=== PATIENT | female | born 1940 | race Caucasian/White ===

== ENCOUNTER 2016-12-29 20:08 | Inpatient (IN) | payer MEDICARE, OTHER, MEDICAID ==
[2016-12-29] MEDS ORDERED: IPRATROPIUM/ALBUTEROL 0.5-2.5 MG/3 ML AMPUL NEB ONE ×2 (20:55→23:16)
[2016-12-29] MEDS ORDERED: PREDNISONE 20 MG TABLET PO ONE (20:55)
--- NOTE | 2016-12-29 20:55 | ER Document Report ---
ED Medical Screen (RME) - General Stated Complaint: DIFFICULTY BREATHING Mode of Arrival: Wheelchair Information source: Patient Notes: Patient complains of shortness of breath that started today. Patient states that her home health nurse stated that her oxygen saturation was in the 80s today. Patient states she does have home oxygen and only wears it at night. Patient denies any chest discomfort. hx: COPD I have greeted and performed a rapid initial assessment of this patient. A comprehensive ED assessment and evaluation of the patient, analysis of test results and completion of the medical decision making process will be conducted by additional ED providers. TRAVEL OUTSIDE OF THE [place] IN LAST 30 DAYS: No - Related Data Allergies/Adverse Reactions: clarithromycin [Clarithromycin] Allergy (Unknown, Verified 12/29/16 20:57) unsure of reaction codeine [Codeine] Allergy (Verified 12/29/16 20:57) hydrocodone Allergy (Verified 12/29/16 20:57) levofloxacin Allergy (Verified 12/29/16 20:57) Sulfa (Sulfonamide Antibiotics) Allergy (Verified 12/29/16 20:57) tramadol Allergy (Verified 12/29/16 20:57) Past Medical History - Past Medical History Cardiac Medical History: Reports: Hx Hypercholesterolemia, Hx Hypertension Denies: Hx Coronary Artery Disease, Hx Heart Attack Pulmonary Medical History: Reports: Hx Bronchitis, Hx COPD, Hx Pneumonia Denies: Hx Asthma, Hx Tuberculosis Neurological Medical History: Denies: Hx Cerebrovascular Accident, Hx Seizures Malignancy Medical History: Reports: Hx Lung Cancer GI Medical History: Reports: Hx Gastroesophageal Reflux Disease, Hx Hiatal Hernia, Hx Ulcer. Denies: Hx Irritable Bowel, Hx Liver Failure Musculoskeltal Medical History: Reports Hx Arthritis, Denies Hx Multiple Sclerosis Skin Medical History: Denies Hx MRSA Psychiatric Medical History: Reports: Hx Depression Denies: Hx Dementia Past Surgical History: Reports: Hx Cholecystectomy, Hx Orthopedic Surgery - RLE. Denies: Hx Colostomy, Hx Hysterectomy, Hx Pacemaker, Hx Tonsillectomy - Immunizations Hx Diphtheria, Pertussis, Tetanus Vaccination: Yes Physical Exam - Vital signs Vitals: Temp Pulse Resp BP Pulse Ox 100.1 F 145 H 26 H 126/72 H 100 12/29/16 20:40 12/29/16 20:40 12/29/16 20:40 12/29/16 20:40 12/29/16 20:40 - Respiratory Respiratory status: Labored - slightly Breath sounds: Nonproductive cough, Wheezing Course - Vital Signs Vital signs: Temp Pulse Resp BP Pulse Ox 97.8 F 75 22 H 132/93 H 92 12/29/16 20:52 12/29/16 20:52 12/29/16 20:52 12/29/16 20:52 12/29/16 20:52
[2016-12-29] MEDS ORDERED: ALBUTEROL SULFATE 0.083% NEB 2.5 MG/3 ML AMPUL NEB ONE (20:57)
[2016-12-29 22:32] LABS: ABSOLUTE BASOPHILS # (AUTO) 0.2 10^3/uL (0.0-0.2); ABSOLUTE EOSINOPHILS # (AUTO) 0.2 10^3/uL (0.0-0.6); ABSOLUTE LYMPHOCYTES (AUTO) 1.3 10^3/uL (0.5-4.7); ABSOLUTE MONOCYTES (AUTO) 0.8 10^3/uL (0.1-1.4); ABSOLUTE NEUT (AUTO) 10.9 10^3/uL (1.7-8.2); BASOPHILS % (AUTO) 1.2 % (0-2); EOSINOPHILS % (AUTO) 1.5 % (0-6); HEMATOCRIT 36.1 % (36.0-47.0); HGB HCT DIFFERENCE -3.1; LYMPHOCYTES % (AUTO) 9.5 % (13-45); MEAN CORPUSCULAR HEMOGLOBIN 24.9 pg (27.0-33.4); MEAN CORPUSCULAR HGB CONC 30.5 g/dL (32.0-36.0); MEAN CORPUSCULAR VOLUME 82 fl (80-97); MONOCYTES % (AUTO) 6.2 % (3-13); RED BLOOD COUNT 4.43 10^6/uL (3.72-5.28); RED CELL DISTRIBUTION WIDTH 20.2 % (11.5-14.0); SEGMENTED NEUTROPHILS % (AUTO) 81.6 % (42-78); WHITE BLOOD COUNT 13.4 10^3/uL (4.0-10.5)
[2016-12-29 22:50] LABS: ALANINE AMINOTRANSFERASE 19 U/L (9-52); ALBUMIN 4.3 g/dL (3.5-5.0); ALKALINE PHOSPHATASE 125 U/L (38-126); ANION GAP 13 (5-19); ASPARTATE AMINO TRANSFERASE 19 U/L (14-36); BILIRUBIN,TOTAL 0.7 mg/dL (0.2-1.3); BLOOD UREA NITROGEN 11 mg/dL (7-20); CALCIUM 9.4 mg/dL (8.4-10.2); CARBON DIOXIDE 25 mmol/L (22-30); CHLORIDE 105 mmol/L (98-107); CREATINE KINASE 38 U/L (30-135); CREATININE RESULT 0.94 mg/dL (0.52-1.25); GLUCOSE 105 mg/dL (75-110); POTASSIUM 3.5 mmol/L (3.6-5.0); SODIUM 142.9 mmol/L (137-145); TOTAL PROTEIN 7.8 g/dL (6.3-8.2)
[2016-12-29 23:02] LABS: CREATINE KINASE MB 1.03 ng/mL (<4.55)
[2016-12-29 23:07] LABS: TROPONIN I < 0.012 ng/mL
[2016-12-29] MEDS ORDERED: FUROSEMIDE INJ/PF 20 MG/2 ML SDV IV ONE (23:16)
--- NOTE | 2016-12-29 23:19 | ER Document Report ---
ED General - General Chief Complaint: Shortness Of Breath Stated Complaint: DIFFICULTY BREATHING Mode of Arrival: Wheelchair Notes: Patient is a 76-year-old female presents with complaint of difficulty breathing. She's a history of COPD. She continues to smoke. She wears 2 L of oxygen at home occasionally. Breathing got worse today. No fevers. No vomiting. No diarrhea. The only pain she has no chest is in her right breast it hurts when she coughs. Some nausea. No vomiting. No other complaints at this time. TRAVEL OUTSIDE OF THE [place] IN LAST 30 DAYS: No - Related Data Allergies/Adverse Reactions: clarithromycin [Clarithromycin] Allergy (Unknown, Verified 12/29/16 20:57) unsure of reaction codeine [Codeine] Allergy (Verified 12/29/16 20:57) hydrocodone Allergy (Verified 12/29/16 20:57) levofloxacin Allergy (Verified 12/29/16 20:57) Sulfa (Sulfonamide Antibiotics) Allergy (Verified 12/29/16 20:57) tramadol Allergy (Verified 12/29/16 20:57) Past Medical History - General Information source: Patient - Social History Smoking Status: Current Every Day Smoker Frequency of alcohol use: None Drug Abuse: None Family History: Reviewed & Not Pertinent, COPD - Past Medical History Cardiac Medical History: Reports: Hx Hypercholesterolemia, Hx Hypertension Denies: Hx Coronary Artery Disease, Hx Heart Attack Pulmonary Medical History: Reports: Hx Bronchitis, Hx COPD, Hx Pneumonia Denies: Hx Asthma, Hx Tuberculosis Neurological Medical History: Denies: Hx Cerebrovascular Accident, Hx Seizures Renal/ Medical History: Denies: Hx Peritoneal Dialysis Malignancy Medical History: Reports: Hx Lung Cancer GI Medical History: Reports: Hx Gastroesophageal Reflux Disease, Hx Hiatal Hernia, Hx Ulcer. Denies: Hx Irritable Bowel, Hx Liver Failure Musculoskeltal Medical History: Reports Hx Arthritis, Denies Hx Multiple Sclerosis Skin Medical History: Denies Hx MRSA Psychiatric Medical History: Reports: Hx Depression Denies: Hx Dementia Past Surgical History: Reports: Hx Cholecystectomy, Hx Orthopedic Surgery - RLE. Denies: Hx Colostomy, Hx Hysterectomy, Hx Pacemaker, Hx Tonsillectomy - Immunizations Hx Diphtheria, Pertussis, Tetanus Vaccination: Yes Hx Pneumococcal Vaccination: 11/05/10 Review of Systems - Review of Systems Notes: My Normal Review Basic REVIEW OF SYSTEMS: CONSTITUTIONAL : Denies fever, chills, or sweats. Denies recent illness. EENT: Denies eye, ear, throat, or mouth pain or symptoms. Denies nasal or sinus congestion. CARDIOVASCULAR: Denies chest pain. RESPIRATORY: Current cough. Difficulty breathing. Wheezing. GASTROINTESTINAL: Denies abdominal pain. Denies nausea, vomiting, or diarrhea. Denies constipation. Last BM: GENITOURINARY: Denies difficulty urinating, painful urination, burning, frequency, or blood in urine.ds. LMP: MUSCULOSKELETAL: Denies neck or back pain or joint pain or swelling. SKIN: Denies rash or skin lesions. NEUROLOGICAL: Denies altered mental status or loss of consciousness. Denies headache. Denies weakness or paralysis or loss of use of either side. Denies problems with gait or speech. Denies sensory or motor loss. ALL OTHER SYSTEMS REVIEWED AND NEGATIVE. Physical Exam - Vital signs Vitals: Temp Pulse Resp BP Pulse Ox 97.8 F 75 22 H 132/93 H 92 12/29/16 20:40 12/29/16 20:40 12/29/16 20:40 12/29/16 20:40 12/29/16 20:40 - Notes Notes: General Appearance: Well nourished, alert, cooperative, mild to moderate acute distress, no obvious discomfort. Vitals: reviewed, See vital signs table. Head: no swelling or tenderness to the head Eyes: PERRL, EOMI, Conjuctiva clear Mouth: No decreasd moisture Throat: No tonsillar inflammation, No airway obstruction, No lymphadenopathy Neck: Supple, no neck tenderness, No thyromegaly Lungs: Scattered wheezing. Some tachypnea. Some rales. Few rhonchi. Heart: Normal rate, Regular rythm, No murmur, no rub Abdomen: Normal BS, soft, No rigidity, No abdominal tenderness, No guarding, no rebound, no abdominal masses, no organomegaly Extremities: strength 5/5 in all extremities, good pulses in all extremities, no swelling or tenderness in the extremities, no edema. Skin: warm, dry, appropriate color, no rash Neuro: speech clear, oriented x 3, normal affect, responds appropriately to questions. Course - Vital Signs Vital signs: Temp Pulse Resp BP Pulse Ox 97.8 F 75 21 H 115/57 L 98 12/29/16 20:52 12/29/16 20:52 12/30/16 05:30 12/30/16 05:30 12/30/16 05:30 - Laboratory Result Diagrams: 12/29/16 21:12 12/29/16 21:12 Laboratory results interpreted by me: 12/29/16 12/29/16 21:12 21:12 WBC 13.4 H Hgb 11.0 L MCH 24.9 L MCHC 30.5 L RDW 20.2 H Seg Neutrophils % 81.6 H Lymphocytes % 9.5 L Absolute Neutrophils 10.9 H Potassium 3.5 L Est GFR (Non-Af Amer) 58 L - EKG Interpretation by Me Additional EKG results interpreted by me: 12/30/16 00:50 EKG is reviewed and interpreted by me. EKG shows sinus tachycardia with a rate of [address] segment elevation or depression. Patient does have a lot of baseline artifact in the lateral precordial leads making it difficult to read. WI interval, QRS duration, QTC intervals are within normal range. Old EKG for comparison is from 04/18/2016. - Transfer of Care Notes: 12/30/16 05:13 I did attempt to call Dr. Arias around 1:40 AM. He informed me that he most likely will not be able to get the patient seems very busy. I have just reevaluated the patient. She continues to be resting comfortably and doing well with the BiPAP. We will continue to wait to get a response from hospitalist about admission. Dictation of this chart was performed using voice recognition software; therefore, there may be some unintended grammatical errors. Discharge - Discharge Clinical Impression: COPD exacerbation, Acute and chronic respiratory failure with hypoxia Condition: Stable Disposition: ADMITTED INPATIENT Unit Admitted: [facility]
[2016-12-29] MEDS ORDERED: MAGNESIUM SULFATE/D5W 100 ML IV SCH (23:30)
[2016-12-30] MEDS ORDERED: ONDANSETRON HCL INJ/PF 4 MG/2 ML SDV IV ONE (00:44)
[2016-12-30] MEDS ORDERED: KETOROLAC TROMETHAMINE INJ/PF 30 MG/1 ML SDV IV ONE (00:44)
[2016-12-30 01:33] LABS: VENOUS BLOOD BASE EXCESS 1.5 mmol/L; VENOUS BLOOD HCO3 26.6 mmol/L (20-32); VENOUS BLOOD PCO2 43.8 mmHg (35-63); VENOUS BLOOD PH 7.4 (7.30-7.42)
[2016-12-30 05:19] LABS: APPEARANCE,URINE SLIGHTLY-CLOUDY; BILIRUBIN,URINE NEGATIVE (NEGATIVE); GLUCOSE, URINE NEGATIVE (NEGATIVE); KETONES,URINE NEGATIVE (NEGATIVE); LEUKOCYTE ESTERASE,URINE NEGATIVE (NEGATIVE); NITRITE,URINE NEGATIVE (NEGATIVE); PROTEIN,URINE NEGATIVE (NEGATIVE); URINE SPECIFIC GRAVITY 1.006; UROBILINOGEN,URINE NEGATIVE mg/dL (<2.0)
[2016-12-30] MEDS ORDERED: GLUCAGON,HUMAN RECOMB 1 MG INJ IM PRN (08:31)
[2016-12-30] MEDS ORDERED: DEXTROSE 40% GEL 15 GM TUBE PO PRN ×2 (08:31)
[2016-12-30] MEDS ORDERED: DEXTROSE 50%-WATER 25 GM/50 ML DISP.SYRIN IV PRN ×2 (08:31)
[2016-12-30] MEDS ORDERED: INSULIN LISPRO 100 UNIT/ML 3 ML VIAL SUBCUT PRN (08:31)
[2016-12-30] MEDS ORDERED: ALBUTEROL SULFATE 0.083% NEB 2.5 MG/3 ML AMPUL NEB PRN (08:35)
[2016-12-30] MEDS ORDERED: ACETAMINOPHEN 325 MG TABLET PO PRN (08:35)
[2016-12-30] MEDS ORDERED: GUAIFENESIN SYRP 200 MG/10 ML UDC PO PRN (08:35)
[2016-12-30] MEDS ORDERED: POTASSI CL 20 MEQ/NS 1L 1,000 ML IV PRN (08:41)
[2016-12-30 09:28] LABS: HEMATOCRIT 33.1 % (36.0-47.0); HEMOGLOBIN 10.1 g/dL (12.0-15.5); HGB HCT DIFFERENCE -2.8; MEAN CORPUSCULAR HEMOGLOBIN 24.9 pg (27.0-33.4); MEAN CORPUSCULAR HGB CONC 30.6 g/dL (32.0-36.0); MEAN CORPUSCULAR VOLUME 81 fl (80-97); RED BLOOD COUNT 4.08 10^6/uL (3.72-5.28); RED CELL DISTRIBUTION WIDTH 19.7 % (11.5-14.0); WHITE BLOOD COUNT 20.9 10^3/uL (4.0-10.5)
[2016-12-30 09:34] LABS: ANION GAP 13 (5-19); BLOOD UREA NITROGEN 10 mg/dL (7-20); CALCIUM 8.7 mg/dL (8.4-10.2); CARBON DIOXIDE 25 mmol/L (22-30); CHLORIDE 102 mmol/L (98-107); CREATININE RESULT 0.71 mg/dL (0.52-1.25); GLUCOSE 150 mg/dL (75-110); POTASSIUM 3.6 mmol/L (3.6-5.0)
[2016-12-30 09:46] LABS: BAND NEUTROPHILS % (MANUAL) 1 % (3-5); BASOPHILS % (MANUAL) 0 % (0-2); EOSINOPHILS % (MANUAL) 0 % (0-6); LYMPHOCYTES % (MANUAL) 1 % (13-45); TOTAL CELLS COUNTED 100
[2016-12-30 09:48] LABS: ANISOCYTOSIS 1+; HYPOCHROMASIA 1+
[2016-12-30] MEDS ORDERED: POTASSIUM CHLORIDE 20 MEQ/15 ML UDCUP PO ONE (10:00)
[2016-12-30] MEDS ORDERED: CEFEPIME 2 GM/D5W RTU 50 ML IV SCH (10:00)
[2016-12-30] MEDS ORDERED: LANSOPRAZOLE 30 MG TAB.RAP.DR PO ONE ×2 (10:00→16:00)
[2016-12-30] MEDS ORDERED: ENOXAPARIN SODIUM INJ 40 MG/0.4 ML DISP.SYRIN SUBCUT ONE (10:00)
[2016-12-30] MEDS: CEFEPIME HCL 2 GM in DEXTROSE 5%-WATER 50 ML IV SCH ×2 (10:03→21:34)
[2016-12-30] MEDS: PREDNISONE 20 MG TABLET PO SCH (10:03)
[2016-12-30] MEDS: DOCUSATE SODIUM 100 MG CAPSULE PO SCH ×2 (10:04→17:19)
[2016-12-30] MEDS ORDERED: NICOTINE 7 MG/24 HR PATCH.TD24 TD PRN ×2 (10:11→15:04)
--- NOTE | 2016-12-30 10:15 | PDOC H&P ---
History of Present Illness Admission Date/PCP: 12/30/16 07:[address] Gus DAMON Patient complains of: Difficulty breathing History of Present Illness: NENITA ELIAS is a 76-year-old female, with underlying when necessary home O2 dependent COPD, one third pack of cigarettes per day, history of lung cancer, history of MRSA infection of lungs, history of pulmonary embolism, who presents to the emergency room for evaluation of above complaint. Vague historian; much information obtained from emergency room physician's notes. Approximately 24-hour history of worsening of her chronic shortness of breath. When necessary 2 L oxygen per nasal cannula at home. Some nausea, but no vomiting. No fever or chills. No diarrhea. Mild right breast discomfort with the cough. Was in fairly significant respiratory distress upon arrival, but has improved nicely, according to the emergency room physician, since application of BiPAP. Was hospitalized on our service October 26 through the of last year, with discharge diagnoses including left lower lobe pneumonia, urinary tract infection , COPD exacerbation, and acute and chronic respiratory failure with hypoxia. Discharge summary has been reviewed. Patient has been discussed with emergency room physician who evaluated the patient. . Laboratory results are listed in [facility] and are reviewed. X-ray summary results are listed below, with full report(s) reviewed. . EKG reviewed. And compared to tracing from April 18 of last year. Social history/personal habits: . Lives alone. Son lives next door. Retired. 2 children. One third pack of cigarettes per day. No alcohol or illicit drug use. Allergies/adverse reactions are listed in [facility] and are reviewed. Home medications have been reconciled by nursing staff in [facility]. Home medications initially autopopulated into [employer] may not accurately reflect patient's true medications, dosages, and/or frequencies. Unfortunately, patient uncertain of medications/dosages/frequencies. REVIEW OF SYSTEMS: Constitutional: No fever or chills. Eyes: Wears glasses. ENT: No swallowing problems or complaints. No hearing problems or complaints. Pulmonary: No current complaints. Cardiovascular: No current complaints, including chest pain. Gastrointestinal: See history and present illness. Skin: Psoriasis. Hematologic: Easy bruising. Neurologic: No current complaints, including numbness or tingling. Psychiatric: Mild Anxiety depression; denies suicidal or homicidal ideation. Endocrine: No current complaints, including polyuria. Genitourinary: No current complaints, including dysuria. PHYSICAL EXAMINATION: 5 feet 7 inches tall. 74.4 kg. BMI 25.7 kg/m. Temperature 97.8. Blood pressure 107/56. Pulse 87 and regular. 98% saturation on BiPAP 40%, 12/6. Respirations are 17 and unlabored. Slightly overweight otherwise well-nourished well-developed though chronically ill-appearing female who appears a number of years older than her stated age. Awake alert and cooperative, though somewhat fatigued appearance. Appears to feel a bit under the weather, so to speak, also. Skin is warm and dry. No grossly obvious evidence of rash in areas of skin examined. No subcutaneous nodules palpated. ENT: Mildly hard of hearing to normal conversation. Tongue midline on protrusion pink and slightly tacky. Eyes: No scleral icterus. Pupils equal and reactive to light at 4 mm. [place] conjunctivae. Neck is supple and nontender to gentle active range of motion and palpation. Midline trachea. No palpable thyroid nodule mass enlargement or tenderness. Lymphatic: No palpable cervical or clavicular nodes. Neck and lymphatic exams limited by patient body habitus. Psychiatric: Fair insight into acute and chronic medical issues. Oriented to time location and why here. Lungs: Auscultation reveals clear and equal breath sounds bilaterally. No use of accessory respiratory muscles. Cardiovascular: Heart regular rate and rhythm, without gallop murmur or rub. No carotid or abdominal aortic bruits. No ankle or pedal edema. Faintly palpable dorsalis pedis pulses. Abdomen: soft, , slightly distended nontender with positive bowel sounds. Unable to adequately evaluate abdomen for masses or organomegaly due to distention. Extremities: Feet are warm and dry. No calf tenderness to compression. No grossly obvious visual evidence of calf swelling. Gentle manipulation of lower extremities fails to reveal any obvious evidence of injury or instability to knees hips or ankles. Neurologic: Moves upper extremities grossly normally. Patellar reflexes absent. Absent Babinski. Light touch is intact at feet. Dorsiflexion and plantarflexion of feet 5 / 5 and symmetric. Past Medical History Cardiac Medical History: Reports: Congestive Heart Failure - Reported history of congestive heart failure., Hyperlipidema, Hypertension, Pulmonary Embolism - Reported distant history of pulmonary embolus. Denies: Coronary Artery Disease, Myocardial Infarction Pulmonary Medical History: Reports: Bronchitis, Chronic Obstructive Pulmonary Disease (COPD), Pneumonia Denies: Asthma, Tuberculosis EENT Medical History: Reports: Eyes - Glasses, Ears - Partial hearing loss Denies: Throat Neurological Medical History: Denies: Hemorrhagic CVA, Ischemic CVA, Seizures Endocrine Medical History: Denies: Diabetes Mellitus Type 1, Diabetes Mellitus Type 2, Hyperthyroidism, Hypothyroidism Malignancy Medical History: Reports: Lung Cancer GI Medical History: Reports: Gastroesophageal Reflux Disease, Hiatal Hernia Denies: Cirrhosis, Hepatitis Musculoskeltal Medical History: Reports: Arthritis Skin Medical History: Reports: Psoriasis Psychiatric Medical History: Reports: Depression, General Anxiety Disorder, Tobacco Dependency Denies: Alcohol Dependency, Dementia, Substance Abuse Hematology: Reports: Other - Easy bruising Denies: Anemia Infectious Medical History: Reports: Methicillin-Resistant Staph Aureus Denies: Hepatitis B, Hepatitis C Past Surgical History Past Surgical History: Reports: Cholecystectomy, Orthopedic Surgery - RLE Denies: Colostomy, Hysterectomy, Pacemaker, Tonsillectomy Social History Information Source: Patient, Emergency Med Personnel, [facility] Lives with: Alone Smoking Status: Current Every Day Smoker Frequency of Alcohol Use: None Hx Recreational Drug Use: No Drugs: None Hx Prescription Drug Abuse: No - Advance Directive Resuscitation Status: Do Not Resuscitate - Implications of DO NOT RESUSCITATE/ DO NOT INTUBATE status discussed with patient. Discussed in layperson's terms. Implications understood. Patient is the health care decision maker. Patient conversation is lucid and appropriate. Patient desires DO NOT RESUSCITATE/DO NOT INTUBATE status, as was the case during her recent hospital stay in late October of last year. Will honor patient wishes. Surrogate healthcare decision maker:: Son Family History Family History: Reviewed & Not Pertinent, COPD Parental Family History Reviewed: Yes Children Family History Reviewed: Yes Sibling(s) Family History Reviewed.: Yes Medication/Allergy Home Medications: Amlodipine Besylate [Norvasc 5 mg Tablet] 5 mg PO DAILY 09/28/15 Lisinopril 20 mg PO BID 09/28/15 Metoprolol Tartrate 25 mg PO BID 09/28/15 Omeprazole 40 mg PO DAILY 04/19/16 Acidophilus/Bifido Longum [Lactobacillus Capsule] 1 cap PO BID #20 capsule 04/21 Albuterol Sulfate [Ventolin 0.083% Neb 2.5 mg/3 mL Ampul] 2.5 mg NEB Q4H PRN 09/ 18/16 Citalopram Hydrobromide [Celexa 20 mg Tablet] 10 mg PO DAILY #30 tablet Docusate Sodium [Colace 100 mg Capsule] 100 mg PO BID #20 capsule 07/24/16 Nicotine [Nicoderm 7 mg/24 Hr Transdermal Patch] 1 each TD DAILYP PRN #30 patch.td24 07/24/16 Amox Tr/Potassium Clavulanate [Augmentin "500" Tablet] 1 tab PO Q8 tablet Butalb/Acetaminophen/Caffeine [Fioricet (50-325-40 mg) Tablet] 1 tab PO Q4HP PRN #30 each 11/01/16 Clonazepam [Klonopin 1 mg Tablet] 0.5 mg PO Q12HP PRN #30 tablet 11/01/16 Fluticasone/Salmeterol [Advair 250-50 Diskus 14 Dose/Diskus] 1 inh IH Q12A inhaler 11/01/16 Guaifenesin [Mucinex Sr 600 mg Tablet.sa] 1,200 mg PO Q12 tablet.sa 11/01/16 Ipratropium/Albuterol Sulfate [Duoneb 3 ml Ampul] 3 ml NEB RTQ6 vial.neb Prednisone [Sterapred Ds] 1 pkg PO ASDIR PRN 12 Days 11/01/16 Allergies/Adverse Reactions: clarithromycin [Clarithromycin] Allergy (Unknown, Verified 12/29/16 20:57) unsure of reaction codeine [Codeine] Allergy (Verified 12/29/16 20:57) hydrocodone Allergy (Verified 12/29/16 20:57) levofloxacin Allergy (Verified 12/29/16 20:57) Sulfa (Sulfonamide Antibiotics) Allergy (Verified 12/29/16 20:57) tramadol Allergy (Verified 12/29/16 20:57) Physical Exam Vital Signs: Temp Pulse Resp BP Pulse Ox 98.5 F 75 20 117/66 99 12/30/16 08:16 12/29/16 20:52 12/30/16 08:01 12/30/16 08:00 12/30/16 08:01 Results Impressions: Chest X-Ray 12/29/16 20:56 IMPRESSION: NO ACUTE CARDIOPULMONARY PROCESS. NO SIGNIFICANT CHANGE FROM PRIOR STUDY. Assessment & Plan - Diagnosis (1) Acute and chronic respiratory failure Qualifiers: Respiratory failure complication: unspecified whether with hypoxia or hypercapnia Qualified Code(s): J96.20 - Acute and chronic respiratory failure, unspecified whether with hypoxia or hypercapnia Is this a current diagnosis for this admission?: YesPlan: Patient will be admitted under COPD exacerbation protocol. Incentive spirometry twice a day. Scheduled DuoNeb's. PRN albuterol nebs daily prednisone. Prevacid for gastritis prophylaxis. Antibiotics will consist of cefepime. I strongly encouraged patient to notify staff should patient feel that respiratory status is worsening. Patient is a full code. I have strongly encouraged patient not to get out of bed without notifying staff , , to avoid a fall with injury. Knee high SCDs for DVT prophylaxis, along with subcutaneous Lovenox Impression and plans were discussed with patient, who concurs. Time spent in evaluation and management of patient: 59 minutes. (2) COPD exacerbation Is this a current diagnosis for this admission?: Yes (3) Hypokalemia Is this a current diagnosis for this admission?: YesPlan: Potassium supplement. Follow-up chemistry. (4) Abnormal urinalysis Is this a current diagnosis for this admission?: YesPlan: Urine culture. (5) Anemia of chronic disease Is this a current diagnosis for this admission?: YesPlan: Follow-up CBC with differential. No need for transfusion at present time. (6) History of MRSA infection of lungs Is this a current diagnosis for this admission?: YesPlan: Contact precautions. (7) Tobacco dependency Is this a current diagnosis for this admission?: YesPlan: When necessary nicotine patch. - Inpatient Certification Medical Necessity: Significant Comorbidiites Make Outpatient Treatment Too Risky , Need Close Monitoring Due to Risk of Patient Decompensation, Need For IV Fluids, Need For Continuous Telemetry Monitoring, Need for Nebulizer Therapy and Monitoring of Response, Need for IV Antibiotics, Risk of Complication if Not Cared For in Hospital, Risk of Diagnosis Which Will Require Inpatient Eval/ Care/Monitoring Post Hospital Care: D/C or Transfer Summary
[2016-12-30] MEDS ORDERED: IPRATROPIUM/ALBUTEROL 0.5-2.5 MG/3 ML AMPUL NEB SCH (14:00)
[2016-12-30] MEDS ORDERED: FLUTICASONE NASAL SPRAY 50 MCG/SPRY 120 SPRAY/16 GM NASL ONE (15:03)
[2016-12-30] MEDS ORDERED: BENZONATATE 100 MG CAPSULE PO PRN (15:03)
[2016-12-30] MEDS ORDERED: GUAIFENESIN 600 MG TABLET.SA PO ONE (15:03)
[2016-12-30] MEDS ORDERED: LEVALBUTEROL HCL NEB 0.63 MG/3 ML AMPUL NEB PRN (15:06)
--- NOTE | 2016-12-30 15:19 | PDOC PROGRESS REPORT ---
Subjective Progress Note for:: 12/30/16 Subjective:: The patient was seen earlier today on rounds. The patient states that she is still having some dyspnea however not while at rest. The patient does admit to some shortness of breath when she has to chew. Patient denies any pain The patient denies any nausea, vomiting, diarrhea, dizziness, chest pain, heart palpitations, fevers, or chills. The patient has remained afebrile. Blood pressures have been in a good range. When prompted the patient voices no other concerns at this time. Review of systems: The rest of the review of systems is negative. Physical Exam Vital Signs: Temp Pulse Resp BP Pulse Ox 98.6 F 102 H 20 123/68 90 L 12/30/16 13:04 12/30/16 14:15 12/30/16 14:15 12/30/16 13:04 12/30/16 14:15 Intake & Output 12/28/16 12/29/16 12/30/16 23:59 23:59 23:59 Weight 76.4 kg General appearance: PRESENT: no acute distress, cooperative, well-developed, well-nourished Exam: Frail chronically ill-appearing Head exam: PRESENT: atraumatic, normocephalic Eye exam: PRESENT: conjunctiva pink, EOMI, PERRLA. ABSENT: scleral icterus Ear exam: PRESENT: normal external ear exam Mouth exam: PRESENT: moist, tongue midline Neck exam: ABSENT: carotid bruit, JVD, lymphadenopathy, thyromegaly Respiratory exam: PRESENT: decreased breath sounds, prolonged expiratory phas, symmetrical, tachypnea, wheezes. ABSENT: rales, rhonchi, unlabored Cardiovascular exam: PRESENT: RRR. ABSENT: diastolic murmur, rubs, systolic murmur Pulses: PRESENT: normal dorsalis pedis pul Vascular exam: PRESENT: normal capillary refill GI/Abdominal exam: PRESENT: normal bowel sounds, soft. ABSENT: distended, guarding, mass, organolmegaly, rebound, tenderness Rectal exam: PRESENT: deferred Extremities exam: PRESENT: full ROM. ABSENT: calf tenderness, clubbing, pedal edema Neurological exam: PRESENT: alert, awake, oriented to person, oriented to place , oriented to time, oriented to situation, CN II-XII grossly intact. ABSENT: motor sensory deficit Psychiatric exam: PRESENT: appropriate affect, normal mood. ABSENT: homicidal ideation, suicidal ideation Skin exam: PRESENT: dry, intact, warm. ABSENT: cyanosis, rash Results Laboratory Results: 12/30/16 09:03 12/30/16 09:03 12/30/16 12/30/16 09:03 09:03 WBC 20.9 H RBC 4.08 Hgb 10.1 L Hct 33.1 L MCV 81 MCH 24.9 L MCHC 30.6 L RDW 19.7 H Plt Count 192 Seg Neutrophils % Not Reportable Lymphocytes % Not Reportable Monocytes % Not Reportable Eosinophils % Not Reportable Basophils % Not Reportable Absolute Neutrophils Not Reportable Absolute Lymphocytes Not Reportable Absolute Monocytes Not Reportable Absolute Eosinophils Not Reportable Absolute Basophils Not Reportable Sodium 140.0 Potassium 3.6 Chloride 102 Carbon Dioxide 25 Anion Gap 13 BUN 10 Creatinine 0.71 Est GFR ( Amer) > 60 Est GFR (Non-Af Amer) > 60 Glucose 150 H Calcium 8.7 Impressions: Chest X-Ray 12/29/16 20:56 IMPRESSION: NO ACUTE CARDIOPULMONARY PROCESS. NO SIGNIFICANT CHANGE FROM PRIOR STUDY. Assessment & Plan - Diagnosis (1) Acute and chronic respiratory failure with hypoxia Is this a current diagnosis for this admission?: YesPlan: The patient is no longer requiring BiPAP. Will continue supplemental O2 and follow. (2) COPD exacerbation Is this a current diagnosis for this admission?: YesPlan: Will continue nebulizers but will transition to Xopenex. Will continue steroids. (3) Hypokalemia Is this a current diagnosis for this admission?: YesPlan: This is been replaced (4) Anemia of chronic disease Is this a current diagnosis for this admission?: YesPlan: Stable will continue to monitor 12/29/16 12/30/16 21:12 09:03 Hgb 11.0 L 10.1 L (5) GERD (gastroesophageal reflux disease) Qualifiers: Esophagitis presence: without esophagitis Qualified Code(s): K21.9 - Gastro-esophageal reflux disease without esophagitis Is this a current diagnosis for this admission?: YesPlan: Will continue PPI therapy (6) HTN (hypertension) Qualifiers: Hypertension type: essential hypertension Qualified Code(s): I10 - Essential (primary) hypertension Is this a current diagnosis for this admission?: YesPlan: Will continue home medications. (7) History of MRSA infection of lungs Is this a current diagnosis for this admission?: Yes (8) History of lung cancer Is this a current diagnosis for this admission?: Yes (9) History of pulmonary embolism Is this a current diagnosis for this admission?: No (10) Tobacco dependency Is this a current diagnosis for this admission?: Yes - Time Time Spent with patient: 35 or more minutes Medications reviewed and adjusted accordingly: Yes Disposition: The patient is a DO NOT RESUSCITATE DO NOT INTUBATE. Pending patient's symptomatology and diagnostic findings will reevaluate as needed.
[2016-12-30] MEDS ORDERED: CITALOPRAM HYDROBROMIDE 20 MG TABLET PO ONE (16:00)
[2016-12-30] MEDS ORDERED: AMLODIPINE BESYLATE 5 MG TABLET PO ONE (16:00)
[2016-12-30] MEDS: LACTOBACILLUS ACIDOPHILUS 250 MG TAB PO SCH (17:18)
[2016-12-30] MEDS: FLUTICASONE/SALMETEROL DISKUS 250-50 MCG/DOSE IH SCH (17:19)
[2016-12-30] MEDS ORDERED: BIFIDO LONGUM PO SCH (18:00)
[2016-12-30] MEDS ORDERED: ACIDOPHILUS PO SCH (18:00)
[2016-12-30] MEDS ORDERED: (PENDING PHARMACY ID) (Lisinopril [Lisinopril] 20 MG) PO SCH (18:00)
--- NOTE | 2016-12-30 19:29 | EKG REPORT ---
SEVERITY:- ABNORMAL ECG - SINUS TACHYCARDIA VENTRICULAR PREMATURE COMPLEX LEFT ATRIAL ABNORMALITY BORDERLINE RIGHT AXIS DEVIATION REPOL ABNRM SUGGESTS ISCHEMIA, DIFFUSE LEADS : Confirmed by: Elizabeth Velazquez MD 30-Dec-2016 19:28:23
[2016-12-30] MEDS: LEVALBUTEROL HCL NEB 1.25 MG/3 ML AMPUL NEB SCH (20:43)
[2016-12-30] MEDS: MONTELUKAST SODIUM 10 MG TABLET PO SCH (21:32)
[2016-12-30] MEDS: GUAIFENESIN 600 MG TABLET.SA PO SCH (21:32)
[2016-12-30] MEDS: BUTALB/ACETAMINOPHEN/CAFFEINE 1 TAB EACH PO PRN (21:33)
[2016-12-30] MEDS: FLUTICASONE NASAL SPRAY 50 MCG/SPRY 120 SPRAY/16 GM NASL SCH (21:36)
[2016-12-30] MEDS: LISINOPRIL 10 MG TABLET PO SCH (21:49)
[2016-12-30] MEDS ORDERED: METOPROLOL TARTRATE 25 MG TABLET PO SCH (22:00)
[2016-12-30] MEDS ORDERED: LISINOPRIL 10 MG TABLET PO SCH (22:00)
[2016-12-30] MEDS: METOPROLOL TARTRATE 25 MG TABLET PO SCH (22:41)
[2016-12-31] MEDS: LANSOPRAZOLE 30 MG TAB.RAP.DR PO SCH (05:08)
[2016-12-31] MEDS: FLUTICASONE/SALMETEROL DISKUS 250-50 MCG/DOSE IH SCH ×2 (05:08→17:22)
[2016-12-31 05:59] LABS: HEMATOCRIT 29.5 % (36.0-47.0); HEMOGLOBIN 9.2 g/dL (12.0-15.5); HGB HCT DIFFERENCE -1.9; MEAN CORPUSCULAR HEMOGLOBIN 25.2 pg (27.0-33.4); MEAN CORPUSCULAR VOLUME 81 fl (80-97); RED BLOOD COUNT 3.64 10^6/uL (3.72-5.28); RED CELL DISTRIBUTION WIDTH 19.5 % (11.5-14.0); WHITE BLOOD COUNT 16.9 10^3/uL (4.0-10.5)
[2016-12-31 06:19] LABS: ANION GAP 11 (5-19); BLOOD UREA NITROGEN 14 mg/dL (7-20); CALCIUM 8.9 mg/dL (8.4-10.2); CARBON DIOXIDE 24 mmol/L (22-30); CHLORIDE 105 mmol/L (98-107); CREATININE RESULT 0.69 mg/dL (0.52-1.25); GLUCOSE 104 mg/dL (75-110); MAGNESIUM 2.2 mg/dL (1.6-2.3); POTASSIUM 3.7 mmol/L (3.6-5.0); SODIUM 140.1 mmol/L (137-145)
[2016-12-31] MEDS: BUTALB/ACETAMINOPHEN/CAFFEINE 1 TAB EACH PO PRN ×3 (06:28→19:28)
[2016-12-31] MEDS: LEVALBUTEROL HCL NEB 1.25 MG/3 ML AMPUL NEB SCH ×3 (08:30→20:20)
[2016-12-31] MEDS: ENOXAPARIN SODIUM INJ 40 MG/0.4 ML DISP.SYRIN SUBCUT SCH (08:37)
[2016-12-31] MEDS ORDERED: LANSOPRAZOLE 30 MG TAB.RAP.DR PO SCH (10:00)
[2016-12-31] MEDS: CITALOPRAM HYDROBROMIDE 20 MG TABLET PO SCH (10:16)
[2016-12-31] MEDS: PREDNISONE 20 MG TABLET PO SCH (10:16)
[2016-12-31] MEDS: LACTOBACILLUS ACIDOPHILUS 250 MG TAB PO SCH ×2 (10:16→17:22)
[2016-12-31] MEDS: DOCUSATE SODIUM 100 MG CAPSULE PO SCH ×2 (10:16→17:22)
[2016-12-31] MEDS: GUAIFENESIN 600 MG TABLET.SA PO SCH ×2 (10:16→21:22)
[2016-12-31] MEDS: METOPROLOL TARTRATE 25 MG TABLET PO SCH ×2 (10:17→21:22)
[2016-12-31] MEDS: LISINOPRIL 10 MG TABLET PO SCH ×2 (10:17→21:21)
[2016-12-31] MEDS: AMLODIPINE BESYLATE 5 MG TABLET PO SCH (10:17)
[2016-12-31] MEDS: CEFEPIME HCL 2 GM in DEXTROSE 5%-WATER 50 ML IV SCH ×2 (10:17→21:29)
[2016-12-31] MEDS: FLUTICASONE NASAL SPRAY 50 MCG/SPRY 120 SPRAY/16 GM NASL SCH ×2 (10:17→21:24)
--- NOTE | 2016-12-31 11:32 | PDOC PROGRESS REPORT ---
Subjective Progress Note for:: 12/31/16 Subjective:: The patient was seen earlier today on rounds. The patient states that she is still having some dyspnea however not while at rest. Patient denies any pain The patient denies any nausea, vomiting, diarrhea, dizziness, chest pain, heart palpitations, fevers, or chills. The patient has remained afebrile. Blood pressures have been in a good range. When prompted the patient voices no other concerns at this time. Review of systems: The rest of the review of systems is negative. Physical Exam Vital Signs: Temp Pulse Resp BP Pulse Ox 98.1 F 110 H 18 141/51 H 92 12/31/16 07:10 12/31/16 08:30 12/31/16 08:30 12/31/16 07:10 12/31/16 08:30 Intake & Output 12/29/16 12/30/16 12/31/16 23:59 23:59 23:59 Intake Total 822 725 Balance 822 725 Weight 76.4 kg 77.1 kg General appearance: PRESENT: no acute distress, cooperative, well-developed, well-nourished Exam: Frail chronically ill-appearing Head exam: PRESENT: atraumatic, normocephalic Eye exam: PRESENT: conjunctiva pink, EOMI, PERRLA. ABSENT: scleral icterus Ear exam: PRESENT: normal external ear exam Mouth exam: PRESENT: moist, tongue midline Neck exam: ABSENT: carotid bruit, JVD, lymphadenopathy, thyromegaly Respiratory exam: PRESENT: decreased breath sounds, prolonged expiratory phas, symmetrical, tachypnea, wheezes. ABSENT: rales, rhonchi, unlabored Cardiovascular exam: PRESENT: RRR. ABSENT: diastolic murmur, rubs, systolic murmur Pulses: PRESENT: normal dorsalis pedis pul Vascular exam: PRESENT: normal capillary refill GI/Abdominal exam: PRESENT: normal bowel sounds, soft. ABSENT: distended, guarding, mass, organolmegaly, rebound, tenderness Rectal exam: PRESENT: deferred Extremities exam: PRESENT: full ROM. ABSENT: calf tenderness, clubbing, pedal edema Neurological exam: PRESENT: alert, awake, oriented to person, oriented to place , oriented to time, oriented to situation, CN II-XII grossly intact. ABSENT: motor sensory deficit Psychiatric exam: PRESENT: appropriate affect, normal mood. ABSENT: homicidal ideation, suicidal ideation Skin exam: PRESENT: dry, intact, warm. ABSENT: cyanosis, rash Results Laboratory Results: 12/31/16 05:42 12/31/16 05:42 12/31/16 12/31/16 05:42 05:42 WBC 16.9 H RBC 3.64 L Hgb 9.2 L Hct 29.5 L MCV 81 MCH 25.2 L MCHC 31.0 L RDW 19.5 H Plt Count 170 Sodium 140.1 Potassium 3.7 Chloride 105 Carbon Dioxide 24 Anion Gap 11 BUN 14 Creatinine 0.69 Est GFR ( Amer) > 60 Est GFR (Non-Af Amer) > 60 Glucose 104 Calcium 8.9 Magnesium 2.2 Impressions: Chest X-Ray 12/29/16 20:56 IMPRESSION: NO ACUTE CARDIOPULMONARY PROCESS. NO SIGNIFICANT CHANGE FROM PRIOR STUDY. Assessment & Plan - Diagnosis (1) Acute and chronic respiratory failure with hypoxia Is this a current diagnosis for this admission?: YesPlan: The patient is no longer requiring BiPAP. Will continue supplemental O2 and follow. (2) COPD exacerbation Is this a current diagnosis for this admission?: YesPlan: Transitioned to Xopenex. Will continue steroids. (3) Hypokalemia Is this a current diagnosis for this admission?: YesPlan: This is been replaced (4) Anemia of chronic disease Is this a current diagnosis for this admission?: YesPlan: Stable will continue to monitor 12/29/16 12/30/16 21:12 09:03 Hgb 11.0 L 10.1 L (5) GERD (gastroesophageal reflux disease) Qualifiers: Esophagitis presence: without esophagitis Qualified Code(s): K21.9 - Gastro-esophageal reflux disease without esophagitis Is this a current diagnosis for this admission?: YesPlan: Will continue PPI therapy (6) HTN (hypertension) Qualifiers: Hypertension type: essential hypertension Qualified Code(s): I10 - Essential (primary) hypertension Is this a current diagnosis for this admission?: YesPlan: Will continue home medications. (7) History of MRSA infection of lungs Is this a current diagnosis for this admission?: Yes (8) History of lung cancer Is this a current diagnosis for this admission?: Yes (9) History of pulmonary embolism Is this a current diagnosis for this admission?: No (10) Tobacco dependency Is this a current diagnosis for this admission?: Yes - Time Time Spent with patient: 25-34 minutes Medications reviewed and adjusted accordingly: Yes Anticipated discharge: Home Within: within 24 hours, within 48 hours
[2016-12-31] MEDS: MONTELUKAST SODIUM 10 MG TABLET PO SCH (21:22)
[2017-01-01] MEDS: LANSOPRAZOLE 30 MG TAB.RAP.DR PO SCH (05:11)
[2017-01-01] MEDS: FLUTICASONE/SALMETEROL DISKUS 250-50 MCG/DOSE IH SCH ×2 (05:11→17:41)
[2017-01-01] MEDS: BUTALB/ACETAMINOPHEN/CAFFEINE 1 TAB EACH PO PRN ×2 (05:14→16:38)
[2017-01-01] MEDS: ENOXAPARIN SODIUM INJ 40 MG/0.4 ML DISP.SYRIN SUBCUT SCH (07:37)
[2017-01-01] MEDS: LEVALBUTEROL HCL NEB 1.25 MG/3 ML AMPUL NEB SCH ×3 (08:49→20:54)
--- NOTE | 2017-01-01 10:22 | PDOC PROGRESS REPORT ---
Subjective Progress Note for:: 01/01/17 Subjective:: The patient was seen earlier today on rounds. The patient states that she is still having some dyspnea however not while at rest. The patient is out of bed to the bedside chair. The patient still requiring 5 liters of O2. The patient stated that her solar energy consultant and designer Dr. rincon had placed her on oxygen continuous at home and she has a prescription for this however she still is only wearing her oxygen at night. Patient denies any pain The patient denies any nausea, vomiting, diarrhea, dizziness, chest pain, heart palpitations, fevers, or chills. The patient has remained afebrile. Blood pressures have been in a good range. When prompted the patient voices no other concerns at this time. Review of systems: The rest of the review of systems is negative. Physical Exam Vital Signs: Temp Pulse Resp BP Pulse Ox 98.3 F 79 16 116/56 L 96 01/01/17 07:45 01/01/17 08:49 01/01/17 08:49 01/01/17 07:45 01/01/17 08:49 Intake & Output 12/30/16 12/31/16 01/01/17 23:59 23:59 23:59 Intake Total 822 1682 1565 Balance 822 1682 1565 Weight 76.4 kg 77.1 kg 77 kg General appearance: PRESENT: no acute distress, cooperative, well-developed, well-nourished Exam: Frail chronically ill-appearing Head exam: PRESENT: atraumatic, normocephalic Eye exam: PRESENT: conjunctiva pink, EOMI, PERRLA. ABSENT: scleral icterus Ear exam: PRESENT: normal external ear exam Mouth exam: PRESENT: moist, tongue midline Neck exam: ABSENT: carotid bruit, JVD, lymphadenopathy, thyromegaly Respiratory exam: PRESENT: decreased breath sounds, prolonged expiratory phas, symmetrical, tachypnea, wheezes. ABSENT: rales, rhonchi, unlabored Cardiovascular exam: PRESENT: RRR. ABSENT: diastolic murmur, rubs, systolic murmur Pulses: PRESENT: normal dorsalis pedis pul Vascular exam: PRESENT: normal capillary refill GI/Abdominal exam: PRESENT: normal bowel sounds, soft. ABSENT: distended, guarding, mass, organolmegaly, rebound, tenderness Rectal exam: PRESENT: deferred Extremities exam: PRESENT: full ROM. ABSENT: calf tenderness, clubbing, pedal edema Neurological exam: PRESENT: alert, awake, oriented to person, oriented to place , oriented to time, oriented to situation, CN II-XII grossly intact. ABSENT: motor sensory deficit Psychiatric exam: PRESENT: appropriate affect, normal mood. ABSENT: homicidal ideation, suicidal ideation Skin exam: PRESENT: dry, intact, warm. ABSENT: cyanosis, rash Results Laboratory Results: 12/31/16 05:42 12/31/16 05:42 Impressions: Chest X-Ray 12/29/16 20:56 IMPRESSION: NO ACUTE CARDIOPULMONARY PROCESS. NO SIGNIFICANT CHANGE FROM PRIOR STUDY. Assessment & Plan - Diagnosis (1) Acute and chronic respiratory failure with hypoxia Is this a current diagnosis for this admission?: YesPlan: The patient is no longer requiring BiPAP. Will continue supplemental O2 and follow. 4 goal of 88-92%. The patient is going to have to have continuous oxygen most likely a home. Will attempt to wean today to get her below 4 liters at least. Will DC IV antibiotics and transitioned oral doxy. (2) COPD exacerbation Is this a current diagnosis for this admission?: YesPlan: Continue Xopenex. Will continue steroids. (3) Hypokalemia Is this a current diagnosis for this admission?: YesPlan: This is been replaced (4) Anemia of chronic disease Is this a current diagnosis for this admission?: YesPlan: Stable will continue to monitor 12/29/16 12/30/16 21:12 09:03 Hgb 11.0 L 10.1 L (5) GERD (gastroesophageal reflux disease) Qualifiers: Esophagitis presence: without esophagitis Qualified Code(s): K21.9 - Gastro-esophageal reflux disease without esophagitis Is this a current diagnosis for this admission?: YesPlan: Will continue PPI therapy (6) HTN (hypertension) Qualifiers: Hypertension type: essential hypertension Qualified Code(s): I10 - Essential (primary) hypertension Is this a current diagnosis for this admission?: YesPlan: Will continue home medications. (7) History of MRSA infection of lungs Is this a current diagnosis for this admission?: Yes (8) History of lung cancer Is this a current diagnosis for this admission?: Yes (9) History of pulmonary embolism Is this a current diagnosis for this admission?: No (10) Tobacco dependency Is this a current diagnosis for this admission?: Yes - Time Time Spent with patient: 25-34 minutes Medications reviewed and adjusted accordingly: Yes Anticipated discharge: Home, Home with Homehealth Within: within 24 hours, within 48 hours Disposition: The patient is a DO NOT RESUSCITATE DO NOT INTUBATE. Pending patient's symptomatology and diagnostic findings will reevaluate as needed.
[2017-01-01] MEDS: CITALOPRAM HYDROBROMIDE 20 MG TABLET PO SCH (10:58)
[2017-01-01] MEDS: LISINOPRIL 10 MG TABLET PO SCH ×2 (10:58→21:43)
[2017-01-01] MEDS: LACTOBACILLUS ACIDOPHILUS 250 MG TAB PO SCH ×2 (10:58→17:41)
[2017-01-01] MEDS: PREDNISONE 20 MG TABLET PO SCH (10:58)
[2017-01-01] MEDS: AMLODIPINE BESYLATE 5 MG TABLET PO SCH (10:59)
[2017-01-01] MEDS: DOCUSATE SODIUM 100 MG CAPSULE PO SCH ×2 (10:59→17:41)
[2017-01-01] MEDS: GUAIFENESIN 600 MG TABLET.SA PO SCH ×2 (10:59→21:44)
[2017-01-01] MEDS: METOPROLOL TARTRATE 25 MG TABLET PO SCH ×2 (10:59→21:44)
[2017-01-01] MEDS ORDERED: DOXYCYCLINE HYCLATE 100 MG TABLET PO ONE (11:00)
[2017-01-01] MEDS: FLUTICASONE NASAL SPRAY 50 MCG/SPRY 120 SPRAY/16 GM NASL SCH ×2 (11:00→21:44)
[2017-01-01] MEDS: CLONAZEPAM 1 MG TABLET PO PRN (11:15)
[2017-01-01] MEDS: MONTELUKAST SODIUM 10 MG TABLET PO SCH (21:44)
[2017-01-01] MEDS: DOXYCYCLINE HYCLATE 100 MG TABLET PO SCH (21:44)
[2017-01-02] MEDS: LANSOPRAZOLE 30 MG TAB.RAP.DR PO SCH (05:30)
[2017-01-02] MEDS: FLUTICASONE/SALMETEROL DISKUS 250-50 MCG/DOSE IH SCH ×2 (05:30→17:55)
[2017-01-02 06:07] LABS: HEMATOCRIT 32.1 % (36.0-47.0); HGB HCT DIFFERENCE -2.1; MEAN CORPUSCULAR HEMOGLOBIN 25.4 pg (27.0-33.4); MEAN CORPUSCULAR HGB CONC 31.3 g/dL (32.0-36.0); MEAN CORPUSCULAR VOLUME 81 fl (80-97); RED BLOOD COUNT 3.95 10^6/uL (3.72-5.28); RED CELL DISTRIBUTION WIDTH 19.8 % (11.5-14.0); WHITE BLOOD COUNT 10.1 10^3/uL (4.0-10.5)
[2017-01-02 06:29] LABS: ANION GAP 14 (5-19); BLOOD UREA NITROGEN 15 mg/dL (7-20); CALCIUM 9.5 mg/dL (8.4-10.2); CARBON DIOXIDE 25 mmol/L (22-30); CHLORIDE 105 mmol/L (98-107); CREATININE RESULT 0.61 mg/dL (0.52-1.25); GLUCOSE 122 mg/dL (75-110); MAGNESIUM 2.1 mg/dL (1.6-2.3); POTASSIUM 3.5 mmol/L (3.6-5.0); SODIUM 143.6 mmol/L (137-145)
[2017-01-02] MEDS: BUTALB/ACETAMINOPHEN/CAFFEINE 1 TAB EACH PO PRN ×2 (07:50→17:54)
[2017-01-02] MEDS: ENOXAPARIN SODIUM INJ 40 MG/0.4 ML DISP.SYRIN SUBCUT SCH (07:50)
[2017-01-02] MEDS: LEVALBUTEROL HCL NEB 1.25 MG/3 ML AMPUL NEB SCH ×3 (08:12→20:05)
[2017-01-02] MEDS: AMLODIPINE BESYLATE 5 MG TABLET PO SCH (09:34)
[2017-01-02] MEDS: CITALOPRAM HYDROBROMIDE 20 MG TABLET PO SCH (09:35)
[2017-01-02] MEDS: DOCUSATE SODIUM 100 MG CAPSULE PO SCH ×2 (09:36→17:54)
[2017-01-02] MEDS: LACTOBACILLUS ACIDOPHILUS 250 MG TAB PO SCH ×2 (09:36→17:54)
[2017-01-02] MEDS: PREDNISONE 20 MG TABLET PO SCH (09:36)
[2017-01-02] MEDS: METOPROLOL TARTRATE 25 MG TABLET PO SCH ×2 (09:36→21:26)
[2017-01-02] MEDS: LISINOPRIL 10 MG TABLET PO SCH ×2 (09:36→21:26)
[2017-01-02] MEDS: FLUTICASONE NASAL SPRAY 50 MCG/SPRY 120 SPRAY/16 GM NASL SCH ×2 (09:37→21:27)
[2017-01-02] MEDS: GUAIFENESIN 600 MG TABLET.SA PO SCH ×2 (09:37→21:26)
[2017-01-02] MEDS: DOXYCYCLINE HYCLATE 100 MG TABLET PO SCH ×2 (09:37→21:26)
[2017-01-02] MEDS: CLONAZEPAM 1 MG TABLET PO PRN (09:59)
--- NOTE | 2017-01-02 15:59 | PDOC PROGRESS REPORT ---
Subjective Progress Note for:: 01/02/17 Subjective:: Patient is seen on morning rounds. She is resting comfortably in bed at the present time. She continues to have productive cough with thick yellow sputum raise. She states she is dyspneic with minimal exertion. She is presently on 4 L oxygen, oxygen saturation is improving. She denies chest pain, headache or dizziness. She denies any nausea, vomiting or abdominal pain. Discussed need for her to try to increase her activity today and wean down her oxygen needs. Physical Exam Vital Signs: Temp Pulse Resp BP Pulse Ox 99.0 F 79 16 125/58 L 91 L 01/02/17 12:15 01/02/17 13:44 01/02/17 13:44 01/02/17 12:15 01/02/17 13:44 Intake & Output 01/01/17 01/02/17 01/03/17 06:59 06:59 06:59 Intake Total 2522 2015 500 Balance 2522015 500 Weight 77 kg 79.1 kg General appearance: PRESENT: no acute distress, well-developed, well-nourished Head exam: PRESENT: atraumatic, normocephalic Eye exam: PRESENT: conjunctiva pink, EOMI, PERRLA. ABSENT: scleral icterus Ear exam: PRESENT: normal external ear exam Mouth exam: PRESENT: moist, tongue midline Neck exam: ABSENT: carotid bruit, JVD, lymphadenopathy, thyromegaly Respiratory exam: PRESENT: rhonchi, symmetrical, unlabored Cardiovascular exam: PRESENT: RRR. ABSENT: diastolic murmur, rubs, systolic murmur Pulses: PRESENT: normal dorsalis pedis pul GI/Abdominal exam: PRESENT: normal bowel sounds, soft. ABSENT: distended, guarding, mass, organolmegaly, rebound, tenderness Rectal exam: PRESENT: deferred Extremities exam: PRESENT: full ROM. ABSENT: calf tenderness, clubbing, pedal edema Neurological exam: PRESENT: alert, awake, oriented to person, oriented to place , oriented to time, oriented to situation, CN II-XII grossly intact. ABSENT: motor sensory deficit Psychiatric exam: PRESENT: appropriate affect, normal mood. ABSENT: homicidal ideation, suicidal ideation Skin exam: PRESENT: dry, intact, warm. ABSENT: cyanosis, rash Results Laboratory Results: 01/02/17 05:46 01/02/17 05:46 01/02/17 01/02/17 05:46 05:46 WBC 10.1 RBC 3.95 Hgb 10.0 L Hct 32.1 L MCV 81 MCH 25.4 L MCHC 31.3 L RDW 19.8 H Plt Count 235 Sodium 143.6 Potassium 3.5 L Chloride 105 Carbon Dioxide 25 Anion Gap 14 BUN 15 Creatinine 0.61 Est GFR ( Amer) > 60 Est GFR (Non-Af Amer) > 60 Glucose 122 H Calcium 9.5 Magnesium 2.1 12/31/16 23:58 Nasophary ([facility] Only) MRSA Surveillance Culture - Final NO MRSA RECOVERED Impressions: Chest X-Ray 12/29/16 20:56 IMPRESSION: NO ACUTE CARDIOPULMONARY PROCESS. NO SIGNIFICANT CHANGE FROM PRIOR STUDY. Assessment & Plan - Diagnosis (1) Acute and chronic respiratory failure with hypoxia Is this a current diagnosis for this admission?: YesPlan: She is improving we'll attempt to increase activity and decreased oxygen today. (2) COPD exacerbation Is this a current diagnosis for this admission?: YesPlan: Continue current medications and continuing steroids. (3) Anemia of chronic disease Is this a current diagnosis for this admission?: YesPlan: Presently stable (4) GERD (gastroesophageal reflux disease) Qualifiers: Esophagitis presence: without esophagitis Qualified Code(s): K21.9 - Gastro-esophageal reflux disease without esophagitis Is this a current diagnosis for this admission?: YesPlan: Continue PPI therapy (5) HTN (hypertension) Qualifiers: Hypertension type: essential hypertension Qualified Code(s): I10 - Essential (primary) hypertension Is this a current diagnosis for this admission?: YesPlan: Continue current medications she is normotensive. (6) History of lung cancer Is this a current diagnosis for this admission?: Yes (7) History of MRSA infection of lungs Is this a current diagnosis for this admission?: YesPlan: Continue current antibiotics. - Time Time Spent with patient: 25-34 minutes Critical Time spent with patient: 15-24 minutes Medications reviewed and adjusted accordingly: Yes Anticipated discharge: Home
[2017-01-02] MEDS: MONTELUKAST SODIUM 10 MG TABLET PO SCH (21:26)
[2017-01-03] MEDS: LANSOPRAZOLE 30 MG TAB.RAP.DR PO SCH (05:39)
[2017-01-03] MEDS: FLUTICASONE/SALMETEROL DISKUS 250-50 MCG/DOSE IH SCH ×2 (05:40→18:30)
[2017-01-03] MEDS: LEVALBUTEROL HCL NEB 1.25 MG/3 ML AMPUL NEB SCH ×3 (08:34→20:03)
[2017-01-03] MEDS: ENOXAPARIN SODIUM INJ 40 MG/0.4 ML DISP.SYRIN SUBCUT SCH (08:39)
[2017-01-03] MEDS: BUTALB/ACETAMINOPHEN/CAFFEINE 1 TAB EACH PO PRN ×2 (08:40→22:16)
[2017-01-03] MEDS: CLONAZEPAM 1 MG TABLET PO PRN (08:40)
[2017-01-03] MEDS ORDERED: PREDNISONE 20 MG TABLET PO SCH (10:00)
[2017-01-03] MEDS: DOCUSATE SODIUM 100 MG CAPSULE PO SCH ×2 (10:39→18:29)
[2017-01-03] MEDS: METOPROLOL TARTRATE 25 MG TABLET PO SCH ×2 (10:39→22:22)
[2017-01-03] MEDS: LACTOBACILLUS ACIDOPHILUS 250 MG TAB PO SCH ×2 (10:41→18:29)
[2017-01-03] MEDS: CITALOPRAM HYDROBROMIDE 20 MG TABLET PO SCH (10:41)
[2017-01-03] MEDS: AMLODIPINE BESYLATE 5 MG TABLET PO SCH (10:41)
[2017-01-03] MEDS: GUAIFENESIN 600 MG TABLET.SA PO SCH ×2 (10:42→22:15)
[2017-01-03] MEDS: LISINOPRIL 10 MG TABLET PO SCH ×2 (10:42→22:13)
[2017-01-03] MEDS: FLUTICASONE NASAL SPRAY 50 MCG/SPRY 120 SPRAY/16 GM NASL SCH ×2 (10:43→22:16)
[2017-01-03] MEDS: TIOTROPIUM BROMIDE DPI 5 CAP/KIT (18 MCG/CAP) IH SCH (10:47)
[2017-01-03] MEDS: DOXYCYCLINE HYCLATE 100 MG TABLET PO SCH ×2 (10:47→22:16)
--- NOTE | 2017-01-03 11:30 | PDOC PROGRESS REPORT ---
Subjective Progress Note for:: 01/03/17 Subjective:: Patient is seen on morning rounds. She is out of bed in the bedside chair. She continues to have productive cough with thick yellow sputum raise. She states she is dyspneic with minimal exertion. She is presently on 3 L oxygen, oxygen saturation is improving. She denies chest pain, headache or dizziness. She denies any nausea, vomiting or abdominal pain. Discussed need for her to try to increase her activity today and wean down her oxygen needs. Her blood sugars have been high. Will taper steroids down today. She denies any other complaints at this time. Physical Exam Vital Signs: Temp Pulse Resp BP Pulse Ox 98.3 F 80 18 145/65 H 98 01/03/17 07:36 01/03/17 08:34 01/03/17 08:34 01/03/17 07:36 01/03/17 08:34 Intake & Output 01/02/17 01/03/17 01/04/17 06:59 06:59 06:59 Intake Total 2015 2063 Balance 2015 2063 Weight 79.1 kg 77.5 kg General appearance: PRESENT: no acute distress, morbidly obese, well-developed, well-nourished Head exam: PRESENT: atraumatic, normocephalic Eye exam: PRESENT: conjunctival injection Ear exam: PRESENT: normal external ear exam Mouth exam: PRESENT: moist, tongue midline Neck exam: ABSENT: carotid bruit, JVD, lymphadenopathy, thyromegaly Respiratory exam: PRESENT: clear to auscultation brittni. ABSENT: rales, rhonchi, wheezes Cardiovascular exam: PRESENT: RRR. ABSENT: diastolic murmur, rubs, systolic murmur Pulses: PRESENT: normal dorsalis pedis pul Vascular exam: PRESENT: normal capillary refill GI/Abdominal exam: PRESENT: normal bowel sounds, soft. ABSENT: distended, guarding, mass, organolmegaly, rebound, tenderness Rectal exam: PRESENT: deferred Extremities exam: PRESENT: full ROM. ABSENT: calf tenderness, clubbing, pedal edema Neurological exam: PRESENT: alert, awake, oriented to person, oriented to place , oriented to time, oriented to situation, CN II-XII grossly intact. ABSENT: motor sensory deficit Psychiatric exam: PRESENT: appropriate affect, normal mood. ABSENT: homicidal ideation, suicidal ideation Skin exam: PRESENT: dry, intact, warm. ABSENT: cyanosis, rash Results Laboratory Results: 01/02/17 05:46 01/02/17 05:46 12/31/16 23:58 Nasophary ([facility] Only) MRSA Surveillance Culture - Final NO MRSA RECOVERED Impressions: Chest X-Ray 12/29/16 20:56 IMPRESSION: NO ACUTE CARDIOPULMONARY PROCESS. NO SIGNIFICANT CHANGE FROM PRIOR STUDY. Assessment & Plan - Diagnosis (1) Acute and chronic respiratory failure with hypoxia Is this a current diagnosis for this admission?: YesPlan: She is improving we'll attempt to increase activity and decreased oxygen today. She did desaturate into with an SPO2 in 70's yesterday afternoon and became confused. We added Spriva but nurse reports patient is refusing because it makes her " ..pee too much" Will check another chest xray. Ambulatory spo2" (2) COPD exacerbation Is this a current diagnosis for this admission?: YesPlan: Continue current medications and continuing steroids. (3) Anemia of chronic disease Is this a current diagnosis for this admission?: YesPlan: Presently stable (4) GERD (gastroesophageal reflux disease) Qualifiers: Esophagitis presence: without esophagitis Qualified Code(s): K21.9 - Gastro-esophageal reflux disease without esophagitis Is this a current diagnosis for this admission?: YesPlan: Continue PPI therapy (5) HTN (hypertension) Qualifiers: Hypertension type: essential hypertension Qualified Code(s): I10 - Essential (primary) hypertension Is this a current diagnosis for this admission?: YesPlan: Continue current medications she is normotensive. (6) History of lung cancer Is this a current diagnosis for this admission?: Yes (7) History of MRSA infection of lungs Is this a current diagnosis for this admission?: YesPlan: Continue current antibiotics. - Time Time Spent with patient: 25-34 minutes Critical Time spent with patient: 15-24 minutes Smoking Cessation Education: 3 to 10 minutes Medications reviewed and adjusted accordingly: Yes Anticipated discharge: Home with Homehealth
[2017-01-03] MEDS: MONTELUKAST SODIUM 10 MG TABLET PO SCH (22:15)
[2017-01-04] MEDS: LANSOPRAZOLE 30 MG TAB.RAP.DR PO SCH (07:00)
[2017-01-04] MEDS: FLUTICASONE/SALMETEROL DISKUS 250-50 MCG/DOSE IH SCH (07:03)
[2017-01-04] MEDS: LEVALBUTEROL HCL NEB 1.25 MG/3 ML AMPUL NEB SCH (08:30)
[2017-01-04] MEDS: DOCUSATE SODIUM 100 MG CAPSULE PO SCH (09:20)
[2017-01-04] MEDS: GUAIFENESIN 600 MG TABLET.SA PO SCH (09:20)
[2017-01-04] MEDS: LACTOBACILLUS ACIDOPHILUS 250 MG TAB PO SCH (09:20)
[2017-01-04] MEDS: CLONAZEPAM 1 MG TABLET PO PRN (09:20)
[2017-01-04] MEDS: CITALOPRAM HYDROBROMIDE 20 MG TABLET PO SCH (09:21)
[2017-01-04] MEDS: DOXYCYCLINE HYCLATE 100 MG TABLET PO SCH (09:22)
[2017-01-04] MEDS: ENOXAPARIN SODIUM INJ 40 MG/0.4 ML DISP.SYRIN SUBCUT SCH (09:22)
[2017-01-04] MEDS: FLUTICASONE NASAL SPRAY 50 MCG/SPRY 120 SPRAY/16 GM NASL SCH (09:23)
[2017-01-04] MEDS: AMLODIPINE BESYLATE 5 MG TABLET PO SCH (09:27)
[2017-01-04] MEDS: LISINOPRIL 10 MG TABLET PO SCH (09:28)
[2017-01-04] MEDS: METOPROLOL TARTRATE 25 MG TABLET PO SCH (09:28)
[2017-01-04] MEDS: TIOTROPIUM BROMIDE DPI 5 CAP/KIT (18 MCG/CAP) IH SCH (09:29)
[2017-01-04] MEDS ORDERED: PREDNISONE 20 MG TABLET PO SCH (10:00)
[2017-01-04 11:57] VITALS: BP 132/93
--- NOTE | 2017-01-04 12:26 | PDOC DISCHARGE SUMMARY ---
General - Admit/Disc Date/PCP Admission Date/Primary Care Provider: 12/30/16 08:35 UMU GATICA MD Discharge Date: 01/04/17 - Discharge Diagnosis (1) Acute and chronic respiratory failure with hypoxia Is this a current diagnosis for this admission?: YesSummary: Patient's oxygen requirements are back to baseline. She is encouraged to wear her oxygen at 2 L/m continuously. She does have portable oxygen set up at home we discussed the need for her to quit smoking as well. (2) COPD exacerbation Is this a current diagnosis for this admission?: YesSummary: Continue present inhalers. Continue doxycycline 100 mg twice a day for the next 4 days. Finish prednisone taper. (3) Anemia of chronic disease Is this a current diagnosis for this admission?: YesSummary: Hemoglobin remained stable throughout hospitalization. (4) GERD (gastroesophageal reflux disease) Is this a current diagnosis for this admission?: YesSummary: Continue PPI therapy (5) HTN (hypertension) Is this a current diagnosis for this admission?: YesSummary: Continue present medications she is normotensive. (6) History of lung cancer Is this a current diagnosis for this admission?: YesSummary: Patient with underlying interstitial lung disease as well. Patient was instructed not to smoke. (7) History of MRSA infection of lungs Is this a current diagnosis for this admission?: YesSummary: Cultures remain negative. - Additional Information Resuscitation Status: Do Not Resuscitate Discharge Diet: Regular Discharge Activity: Activity As Tolerated, Balance Activity w/Rest Home Medications: Amlodipine Besylate [Norvasc 5 mg Tablet] 5 mg PO DAILY 09/28/15 Lisinopril 20 mg PO BID 09/28/15 Metoprolol Tartrate 25 mg PO BID 09/28/15 Omeprazole 40 mg PO DAILY 04/19/16 Acidophilus/Bifido Longum [Lactobacillus Capsule] 1 cap PO BID #20 capsule 04/21 Albuterol Sulfate [Ventolin 0.083% Neb 2.5 mg/3 mL Ampul] 2.5 mg NEB Q4H PRN Citalopram Hydrobromide [Celexa 20 mg Tablet] 10 mg PO DAILY #30 tablet Docusate Sodium [Colace 100 mg Capsule] 100 mg PO BID #20 capsule 07/24/16 Nicotine [Nicoderm 7 mg/24 Hr Transdermal Patch] 1 each TD DAILYP PRN #30 patch.td24 07/24/16 Amox Tr/Potassium Clavulanate [Augmentin "500" Tablet] 1 tab PO Q8 tablet Butalb/Acetaminophen/Caffeine [Fioricet (50-325-40 mg) Tablet] 1 tab PO Q4HP PRN #30 each 11/01/16 Clonazepam [Klonopin 1 mg Tablet] 0.5 mg PO Q12HP PRN #30 tablet 11/01/16 Fluticasone/Salmeterol [Advair 250-50 Diskus 14 Dose/Diskus] 1 inh IH Q12A inhaler 11/01/16 Guaifenesin [Mucinex Sr 600 mg Tablet.sa] 1,200 mg PO Q12 tablet.sa 11/01/16 Ipratropium/Albuterol Sulfate [Duoneb 3 ml Ampul] 3 ml NEB RTQ6 vial.neb Prednisone [Sterapred Ds] 1 pkg PO ASDIR PRN 12 Days 11/01/16 Acetaminophen [Tylenol 325 mg Tablet] 650 mg PO Q4HP PRN tablet 01/04/17 Doxycycline Hyclate [Vibramycin 100 mg Tablet] 100 mg PO Q12 #8 tablet 01/04/17 Fluticasone Propionate [Flonase Nasal Readfield 50 Mcg/Readfield 16 gm] 2 spray NASL Q12 spray.pump 01/04/17 Montelukast Sodium [Singulair 10 mg Tablet] 10 mg PO QHS #30 tablet 01/04/17 Prednisone [Deltasone 20 mg Tablet] 20 mg PO DAILY #3 tablet 01/04/17 History of Present Illness History of Present Illness: NENITA ELIAS is a 76 year old female has a history of oxygen dependent COPD , tobacco abuse, lung cancer status post lobectomy, PE, and MRSA pneumonia, who presents for to the [facility] emergency room with complaints of increasing shortness of breath and dyspnea on 12/30. Patient states she had a 24-hour history of worsening shortness of breath and cough. She denies fever or chills she denied any sick contacts at home. She was last hospitalized on our service October 26 to the with a diagnosis of left lower lobe pneumonia and COPD exacerbation. She was discharged to rehabilitation. She was states she was in rehabilitation for approximately 4 weeks. She has been home for the last 3 weeks. Since she was home son states she has resumed smoking. Hospital Course Hospital Course: Patient was admitted to [facility] on telemetry. She was started on IV steroids, doxycycline and nebulizer treatments. Chest x-ray revealed no acute changes. She did have mild leukocytosis on admission. She was being treated for acute on chronic respiratory failure with hypoxemia and hypercapnia. She did require BiPAP Therapy for 24 hours because of hypercapnia. She was able to be weaned to oxygen by nasal cannula at 2 L/m, she does desaturate significantly on room air to as low as 70%. Her breathing has improved over the last 2 days. Repeat chest x-ray showed no acute changes. Her cough is resolved. She did have some confusion during her hospital stay. 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 She will be discharged home with home health, physical therapy and her son who lives next door. She has refused any rehabilitation placement. Physical Exam Vital Signs: Temp Pulse Resp BP Pulse Ox 98.3 F 80 18 132/93 H 97 01/04/17 11:50 01/04/17 11:50 01/04/17 11:50 01/04/17 11:50 01/04/17 11:50 Intake & Output 01/03/17 01/04/17 01/05/17 06:59 06:59 06:59 Intake Total 4 1168 Balance 2063 1168 Weight 77.5 kg 77 kg General appearance: PRESENT: no acute distress, well-developed, well-nourished Head exam: PRESENT: atraumatic, normocephalic Eye exam: PRESENT: conjunctiva pink, EOMI, PERRLA. ABSENT: scleral icterus Ear exam: PRESENT: normal external ear exam Mouth exam: PRESENT: moist, tongue midline Neck exam: ABSENT: carotid bruit, JVD, lymphadenopathy, thyromegaly Respiratory exam: PRESENT: clear to auscultation brittni, decreased breath sounds, symmetrical, unlabored Cardiovascular exam: PRESENT: RRR. ABSENT: diastolic murmur, rubs, systolic murmur Pulses: PRESENT: normal dorsalis pedis pul Vascular exam: PRESENT: normal capillary refill GI/Abdominal exam: PRESENT: normal bowel sounds, soft. ABSENT: distended, guarding, mass, organolmegaly, rebound, tenderness Rectal exam: PRESENT: deferred Extremities exam: PRESENT: full ROM. ABSENT: calf tenderness, clubbing, pedal edema Neurological exam: PRESENT: alert, awake, oriented to person, oriented to place , oriented to time, oriented to situation, CN II-XII grossly intact. ABSENT: motor sensory deficit Psychiatric exam: PRESENT: appropriate affect, normal mood. ABSENT: homicidal ideation, suicidal ideation Skin exam: PRESENT: dry, intact, warm. ABSENT: cyanosis, rash Results Laboratory Results: 01/02/17 05:46 01/02/17 05:46 Impressions: Chest X-Ray 01/04/17 07:00 IMPRESSION: The overall appearance of the chest is not significantly changed comparison the prior study. There is persistent density in the left lung base .There is prominence of the interstitium throughout the lungs likely representing changes of chronic interstitial disease. Qualifiers PATEINT BEING DISCHARGED WITH ANY OF THE FOLLOWING DIAGNOSIS?: No Plan Discharge Plan: Discharge home with home health and home physical therapy Time Spent: Less than 30 Minutes
[2017-01-04] MEDS: BUTALB/ACETAMINOPHEN/CAFFEINE 1 TAB EACH PO PRN (13:04)
== END 2017-01-04 13:11 | disposition home or self-care (01) | DRG 190 ==
LOC: ER 20:08 → UNDOADMIN 12-30 07:33 → EH 12-30 07:33 → 3W 12-30 12:36
PROVIDERS: ADMIT Internal Medicine; ATTEND Internal Medicine
PROC: 5A09457 Assistance with Respiratory Ventilation, 24-96 Consecutive Hours, Continuous Positive Airway Pressure (ICD-10-PCS; principal; 2016-12-30)
DX: J44.1 Chronic obstructive pulmonary disease with (acute) exacerbation (principal); J96.22 Acute and chronic respiratory failure with hypercapnia; J96.21 Acute and chronic respiratory failure with hypoxia; E78.5 Hyperlipidemia, unspecified; I10 Essential (primary) hypertension; H91.90 Unspecified hearing loss, unspecified ear; K21.9 Gastro-esophageal reflux disease without esophagitis; K44.9 Diaphragmatic hernia without obstruction or gangrene; E87.6 Hypokalemia; L40.9 Psoriasis, unspecified; F32.9 Major depressive disorder, single episode, unspecified; F41.1 Generalized anxiety disorder; Z66 Do not resuscitate; Z86.14 Personal history of Methicillin resistant Staphylococcus aureus infection; Z85.118 Personal history of other malignant neoplasm of bronchus and lung; T38.0X5A Adverse effect of glucocorticoids and synthetic analogues, initial encounter; D63.8 Anemia in other chronic diseases classified elsewhere; R41.0 Disorientation, unspecified; F17.210 Nicotine dependence, cigarettes, uncomplicated; Z86.711 Personal history of pulmonary embolism; Z88.6 Allergy status to analgesic agent; Z88.1 Allergy status to other antibiotic agents; Z88.2 Allergy status to sulfonamides; Z90.49 Acquired absence of other specified parts of digestive tract; Z99.81 Dependence on supplemental oxygen; Z90.2 Acquired absence of lung [part of]
CPT/HCPCS: 36415; 71010; 71020; 80048; 80053; 81001; 82550; 82553; 82803; 82962; 83735; 84484; 85025; 85027; 87040; 93005; 93010; 94640; 94660; 94667; 94668; 96374; 96375; 99285; J0692; J1650; J1815; J1885; J1940; J2405; J3475; J3480; J3490; J7512; J7620

== ENCOUNTER 2017-02-16 21:12 | Emergency (ER) | payer MEDICARE, OTHER, MEDICAID ==
--- NOTE | 2017-02-16 21:34 | ER Document Report ---
ED Extremity Problem, Upper - General Stated Complaint: FALL/RIGHT SHOULDER PAIN Mode of Arrival: Medic Information source: Patient TRAVEL OUTSIDE OF THE [place] IN LAST 30 DAYS: No - HPI Patient complains to provider of: Injury, Right Onset: Just prior to arrival Where: Home Quality of pain: Achy Severity of pain: Moderate Context: Fall Notes: Patient arrives via EMS after falling at home. The patient has a history of COPD and is on oxygen intermittently and at nighttime. Patient tripped over her oxygen tubing at home causing her to fall and injure her right arm. She complains of pain in the right shoulder. The pain is worse with any movement. Better with rest. She also has a superficial laceration/skin tear to the left lateral orbital area from her glasses. No active bleeding at this time. There is mild tenderness to palpation. She denies any loss of consciousness with this fall. She denies any neck, back, chest, abdominal pain. She denies any numbness, tingling, weakness. She is on no blood thinning medications. She denies any blurred or loss vision. She was given Dilaudid via EMS and is feeling better pain-edmond at this time. - Related Data Allergies/Adverse Reactions: clarithromycin [Clarithromycin] Allergy (Unknown, Verified 12/29/16 20:57) unsure of reaction codeine [Codeine] Allergy (Verified 12/29/16 20:57) hydrocodone Allergy (Verified 12/29/16 20:57) levofloxacin Allergy (Verified 12/29/16 20:57) Sulfa (Sulfonamide Antibiotics) Allergy (Verified 12/29/16 20:57) tramadol Allergy (Verified 12/29/16 20:57) Past Medical History - Social History Smoking Status: Unknown if Ever Smoked Family History: Reviewed & Not Pertinent, COPD - Past Medical History Cardiac Medical History: Reports: Hx Congestive Heart Failure - Reported history of congestive heart failure., Hx Hypercholesterolemia, Hx Hypertension, Hx Pulmonary Embolism - Reported distant history of pulmonary embolus. Denies: Hx Coronary Artery Disease, Hx Heart Attack Pulmonary Medical History: Reports: Hx Bronchitis, Hx COPD, Hx Pneumonia Denies: Hx Asthma, Hx Tuberculosis Neurological Medical History: Denies: Hx Cerebrovascular Accident, Hx Seizures Endocrine Medical History: Denies: Hx Diabetes Mellitus Type 1, Hx Diabetes Mellitus Type 2, Hx Hyperthyroidism, Hx Hypothyroidism Renal/ Medical History: Denies: Hx Peritoneal Dialysis Malignancy Medical History: Reports: Hx Lung Cancer GI Medical History: Reports: Hx Gastroesophageal Reflux Disease, Hx Hiatal Hernia, Hx Ulcer. Denies: Hx Cirrhosis, Hx Hepatitis, Hx Irritable Bowel, Hx Liver Failure Musculoskeltal Medical History: Reports Hx Arthritis, Denies Hx Multiple Sclerosis Skin Medical History: Denies Hx MRSA, Reports Hx Psoriasis Psychiatric Medical History: Reports: Hx Depression Denies: Hx Dementia Infectious Medical History: Reports: Hx MRSA. Denies: Hx Hepatitis Past Surgical History: Reports: Hx Cholecystectomy, Hx Orthopedic Surgery - RLE. Denies: Hx Colostomy, Hx Hysterectomy, Hx Pacemaker, Hx Tonsillectomy - Immunizations Hx Diphtheria, Pertussis, Tetanus Vaccination: Yes Hx Pneumococcal Vaccination: 11/05/10 Review of Systems - Review of Systems -: Yes All other systems reviewed and negative Physical Exam - Notes Notes: GENERAL: alert, cooperative, nontoxic, no distress. HEAD: normocephalic, skin tear/superficial abrasion to the left lateral orbital area. No active bleeding. Minimal tenderness to palpation. No crepitus. EYES: conjunctiva pink without discharge, no external redness or swelling. Pupils equal round react to light. EARS: no external swelling, no external redness NOSE: atraumatic, no external swelling MOUTH/THROAT: mucous membranes moist and pink, posterior pharynx without erythema, swelling, exudate. No trismus or drooling. NECK: soft, supple, full range of motion, no meningismus. CHEST: no distress, expiratory wheezes throughout.. CARDIAC: regular rate and rhythm, no murmur, normal capillary refill, normal pulses. No peripheral edema noted. BACK: full range of motion, no CVA tenderness. EXTREMITIES: The patient is noted to have tenderness to palpation of the right shoulder. No obvious deformity. Limited range of motion to the shoulder. Normal pulse and sensation distally. Normal hand grasp. She has no elbow tenderness to palpation. There is no skin redness or lacerations noted. The patient has no cervical, thoracic, lumbar tenderness, step-offs, tenderness to palpation. NEURO: alert and oriented 3, no focal deficits, Cranial nerves II through XII grossly intact. Normal sensation. PYSCH: appropriate mood, affect. Patient is cooperative. SKIN: pink, warm, dry, no rash. Course - Re-evaluation Re-evalutation: 02/16/17 22:38 Patient remains nontoxic with stable vitals. CT of the head, face, cervical spine show no acute abnormality. Right shoulder x-ray shows a proximal humerus fracture. The patient will be placed in a sling and swath. We discharged home with prescription for [place] and instructions to follow up with or without the next appointment. Follow-up sooner for increased pain, fever, numbness, tingling, weakness, any further concerns. The patient is noted to have elevated blood pressure during today's emergency department visit. The patient was informed of this finding. The patient was instructed that this may be related to pre-hypertension and requires further evaluation with a primary care provider. The patient has no hypertensive symptoms at this time. The patient's emergency department workup and current diagnosis were explained to the patient and or family. Follow-up instructions were provided. Medications if prescribed were discussed. Instructions for when to return to the emergency department including specific worrisome symptoms were discussed with the patient and/or family. Procedures - Additional Procedures splinting Notes: 02/16/17 22:39 [id number] applied to the right arm. Joint well aligned. Patient has a normal neurovascular exam distally. Discharge - Discharge Clinical Impression: Closed fracture of right proximal humerus Condition: Stable Disposition: HOME, SELF-CARE Instructions: Fracture Proximal Humerus Additional Instructions: Take medications as prescribed. Wear sling and swath until you follow up with orthopedic. Call and make a follow-up appointment with or so next week. Follow -up sooner for increased pain, fever, numbness, tingling, weakness, any further concerns. Your blood pressure was elevated during today's visit. Have this rechecked with your doctor. The medication you were prescribed today may cause drowsiness. Do not drive or operate heavy machinery while taking this medication. Prescriptions: Docusate Sodium [Colace 100 mg Capsule] 100 mg PO BID #30 capsule Hydrocodone/Acetaminophen [Le[place] 5-325 mg Tablet] 1 tab PO Q4 PRN #24 tablet PRN Reason: Ondansetron HCl [Zofran 4 mg Tablet] 1 tab PO Q6H PRN #20 tablet PRN Reason: Forms: Elevated Blood Pressure Referrals: TRAVIS CARRASQUILLO MD [Primary Care Provider] - Follow up as needed DREAD LEVY DO [ACTIVE STAFF] - Follow up as needed
[2017-02-16] MEDS ORDERED: HYDROCODONE/ACETAMINOPHEN 5-325 MG TABLET PO ONE (22:37)
[2017-02-16] MEDS ORDERED: ONDANSETRON HCL INJ/PF 4 MG/2 ML SDV IV ONE (22:37)
[2017-02-16] MEDS ORDERED: ONDANSETRON ODT 4 MG TAB (6 TAB/DSPK) PO PRN (23:50)
[2017-02-16] MEDS ORDERED: HYDROCODONE/ACETAMINOPHEN 5-325 MG 6 TAB/DSPK PO PRN (23:50)
[2017-02-17 00:36] VITALS: BP 149/59
== END 2017-02-17 00:35 | disposition home or self-care (01) ==
LOC: ER 21:12
DX: S42.201A Unspecified fracture of upper end of right humerus, initial encounter for closed fracture (principal); S01.112A Laceration without foreign body of left eyelid and periocular area, initial encounter; M25.511 Pain in right shoulder; J44.9 Chronic obstructive pulmonary disease, unspecified; W01.0XXA Fall on same level from slipping, tripping and stumbling without subsequent striking against object, initial encounter; Y92.009 Unspecified place in unspecified non-institutional (private) residence as the place of occurrence of the external cause; Z99.81 Dependence on supplemental oxygen; Z88.6 Allergy status to analgesic agent; Z88.3 Allergy status to other anti-infective agents; Z90.49 Acquired absence of other specified parts of digestive tract; I50.9 Heart failure, unspecified; E78.00 Pure hypercholesterolemia, unspecified; I11.0 Hypertensive heart disease with heart failure; Z86.711 Personal history of pulmonary embolism
CPT/HCPCS: 99284; 96374; 73030; 70450; 70486; 72125; L3650 ×2; J2405; A9270 ×3

== ENCOUNTER → 2017-03-22 | Outpatient (CLI) | payer MEDICARE, OTHER, MEDICAID ==
[2017-03-22 16:38] LABS: CALCIUM 9.2 mg/dL (8.4-10.2); CREATININE RESULT 0.63 mg/dL (0.52-1.25)
== END ==
LOC: OD 09:41
PROVIDERS: ATTEND Obstetrics & Gynecology
DX: S42.211A Unspecified displaced fracture of surgical neck of right humerus, initial encounter for closed fracture (principal); N28.9 Disorder of kidney and ureter, unspecified
CPT/HCPCS: 36415; 82310; 82565

== ENCOUNTER → 2017-04-23 | Outpatient (CLI) | payer MEDICARE, OTHER, MEDICAID ==
--- NOTE | 2017-04-23 12:25 | RADIOLOGY REPORT (SQ) ---
EXAM DESCRIPTION: MRI HEAD COMBO COMPLETED DATE/TIME: 04/23/2017 11:05 am REASON FOR STUDY: LUNG CA (C34.90) C34.90 MALIGNANT NEOPLASM OF UNSP PART OF UNSP BRONCHUS OR L COMPARISON: None. TECHNIQUE: Multiplanar imaging includes noncontrasted T1, T2, FLAIR, Diffusion with ADC map and post gadolinium contrast T1 sequences. Images stored on PACS. CONTRAST TYPE AND DOSE: 15 mL Multihance. RENAL FUNCTION: GFR > 60. LIMITATIONS: None. FINDINGS: ANATOMY: No anomalies. Normal vascular flow voids. Pituitary fossa normal. CSF SPACES: Atrophy-induced prominence of CSF spaces and ventricles. CEREBRUM: High-signal intensity lesions scattered throughout the white matter on FLAIR imaging with d istribution suggesting chronic micro-vascular ischemic change. No evidence of hemorrhage, mass, extra axial fluid collection or acute ischemic change. No enhancing lesions. POSTERIOR FOSSA: No signal alteration. No hemorrhage. No edema, masses, or mass effect. Internal sadiq tory canals, cerebello-pontine angles, mastoids normal. No enhancing lesions. ORBITS: No masses. Globes normal. PARANASAL SINUSES: No fluid levels. Mucosa normal. DIFFUSION: Normal. No evidence of recent infarct. OTHER: No other significant finding. IMPRESSION: ATROPHY AND CHRONIC MICRO-VASCULAR ISCHEMIC CHANGES. OTHERWISE UNREMARKABLE MRI OF THE B RAIN WITHOUT AND WITH INTRAVENOUS GADOLINIUM CONTRAST. NO ENHANCING LESIONS. TECHNICAL DOCUMENTATION: JOB ID: [id number]- All Rights Reserved
--- NOTE | 2017-04-23 15:13 | RADIOLOGY REPORT (SQ) ---
EXAM DESCRIPTION: NM WHOLE BODY BONE SCAN COMPLETED DATE/TIME: 04/23/2017 2:51 pm REASON FOR STUDY: LUNG CA (C34.90) C34.90 MALIGNANT NEOPLASM OF UNSP PART OF UNSP BRONCHUS OR L COMPARISON: X-ray right shoulder dated 02/16/2017. RADIONUCLIDE AND DOSE: 20.2 millicuries Tc99m HDP. The route of agent administration: Intravenous. ADDITIONAL DRUGS AND DOSES: None. TECHNIQUE: Routine delayed images at 3 hour post radionuclide injection acquired of the bony skeleto n including anterior and posterior whole-body projections and additional focused images as needed. LIMITATIONS: None. FINDINGS: BONES: Activity in the right humeral neck. Otherwise normal visualization without areas o f photopenia or increased bony uptake of radiopharmaceutical. Minimal activity in the right knee due to degenerative change. KIDNEYS: Symmetric excretion without obstruction. OTHER: No other significant finding. IMPRESSION: ACTIVITY IN THE RIGHT HUMERAL NECK CORRESPONDING TO A RECENT FRACTURE. OTHERWISE UNREMA RKABLE STUDY. NO FINDINGS CONCERNING FOR BONY METASTASES. COMMENT: PQRS 3570F: Current bone scan is compared with any available plain radiographs, prior bone scans, and CT/MRI. TECHNICAL DOCUMENTATION: JOB ID: [id number] [employer]- All Rights Reserved
== END ==
LOC: RAD 08:57
PROVIDERS: ATTEND Internal Medicine Hematology & Oncology
DX: C34.90 Malignant neoplasm of unspecified part of unspecified bronchus or lung (principal)
CPT/HCPCS: 70553; 78306; A9577; A9561; Q9969

== ENCOUNTER → 2017-04-29 | Outpatient (CLI) | payer MEDICARE, OTHER, MEDICAID ==
--- NOTE | 2017-05-01 11:05 | RADIOLOGY REPORT (SQ) ---
EXAM DESCRIPTION: PET CT SKULL/THIGH COMPLETED DATE/TIME: 05/01/2017 10:29 am REASON FOR STUDY: SOLITARY PULMONARY NODULE R91.1 SOLITARY PULMONARY NODULE C34.30 MALIGNANT NEOPL ASM OF LOWER LOBE, UNSP BRONCHUS OR JONY COMPARISON: Outside CT chest 04/11/2017 PET-CT 05/28/2011 RADIONUCLIDE AND DOSE: 10.7 mCi F18 FDG The route of agent administration: Intravenous FASTING BLOOD SUGAR: 101 mg/dl CONTRAST TYPE AND DOSE: No CT contrast given. TECHNIQUE: Blood glucose level was verified. Above dose of FDG was injected intravenously. 2-D seg mented attenuation correction images were obtained from the base of the skull to the midthighs. Nonc ontrast CT images were obtained for attenuation correction and fusion with emission images. CT image s were performed without oral or intravenous contrast and are not sensitive for parenchymal lesions. A series of overlapping emission PET images were obtained. Images reviewed and manipulated at [facility] work station by the radiologist. Images stored on PACS. LIMITATIONS: None. FINDINGS: HEAD AND NECK: No areas of abnormal metabolic activity in the soft tissues of the head and neck. CHEST: There is mediastinal adenopathy as follows: Pretracheal 1.1 x 0.8 cm lymph node axial image 79, SUV 2.3 Precarinal 1.1 x 1.1 cm lymph node axial image 84, 1.7 SUV Sub- carinal 2.2 x 1.4 cm lymph node image 92, SUV 3 There is a small right pleural effusion. Multiple pleural-based densities in the right hemithorax ar e present, hypermetabolic worrisome for malignancy as follows: 4.5 x 1.5 cm pleural based soft tissue right middle lobe laterally at the minor fissure axial image 1 00, SUV 5.3 1.9 x 0.9 cm right middle lobe pleural based soft tissue nodule anteriorly on axial image 102, SUV of 4 4 x 1.2 cm soft tissue pleural-based mass medial right middle lobe abutting the mediastinum axial vi ge 99, SUV 5.6 4 x 2 cm right middle lobe pleural based soft tissue density anterior inferior edge, axial image 122, SUV 5.8 Patient is post left upper lobectomy. Minimal atelectasis in the left posterior costophrenic sulcus. No left pleural effusion. ABDOMEN AND PELVIS: No areas of abnormal metabolic activity in the abdomen or pelvis. Expected physi ologic activity is present in the genitourinary system and bowel. PROXIMAL LOWER EXTREMITIES: No areas of abnormal metabolic activity in the soft tissues of the lower extremities. BONES: There is a right proximal humerus healing metaphyseal fracture, with superimposed osteoarthrit is at the right shoulder joint. SUV at the fracture site is 5.7. No other hypermetabolic bony lesio ns are identified. ADDITIONAL CT FINDINGS: Post cholecystectomy. Colon diverticuli without CT signs of acute diverticul itis. Old left upper lobectomy. OTHER: Blood pool activity SUV 1.8, liver activity 2.1 SUV. IMPRESSION: Multiple hypermetabolic pleural-based masses in the right hemithorax worrisome for mica diaz. Healing right proximal humeral metaphysis fracture TECHNICAL DOCUMENTATION: JOB ID: [id number] [employer]- All Rights Reserved
== END ==
LOC: RAD 19:25
PROVIDERS: ATTEND Internal Medicine Hematology & Oncology
DX: C34.30 Malignant neoplasm of lower lobe, unspecified bronchus or lung (principal); R91.1 Solitary pulmonary nodule
CPT/HCPCS: 78815; A9552

== ENCOUNTER → 2017-05-07 | Day surgery (SDC) | payer MEDICARE, OTHER, MEDICAID ==
[2017-05-07 09:45] VITALS: BP 134/72
[2017-05-07 10:24] LABS: ABSOLUTE BASOPHILS # (AUTO) 0.1 10^3/uL (0.0-0.2); ABSOLUTE EOSINOPHILS # (AUTO) 0.2 10^3/uL (0.0-0.6); ABSOLUTE LYMPHOCYTES (AUTO) 0.7 10^3/uL (0.5-4.7); ABSOLUTE MONOCYTES (AUTO) 0.6 10^3/uL (0.1-1.4); ABSOLUTE NEUT (AUTO) 7.8 10^3/uL (1.7-8.2); BASOPHILS % (AUTO) 1.4 % (0-2); EOSINOPHILS % (AUTO) 1.9 % (0-6); HEMATOCRIT 44.3 % (36.0-47.0); HEMOGLOBIN 14.2 g/dL (12.0-15.5); HGB HCT DIFFERENCE -1.7; LYMPHOCYTES % (AUTO) 7.2 % (13-45); MEAN CORPUSCULAR HEMOGLOBIN 33.1 pg (27.0-33.4); MEAN CORPUSCULAR VOLUME 103 fl (80-97); MONOCYTES % (AUTO) 6.6 % (3-13); RED BLOOD COUNT 4.28 10^6/uL (3.72-5.28); RED CELL DISTRIBUTION WIDTH 14.4 % (11.5-14.0); SEGMENTED NEUTROPHILS % (AUTO) 82.9 % (42-78); WHITE BLOOD COUNT 9.4 10^3/uL (4.0-10.5)
[2017-05-07 10:31] LABS: PARTIAL THROMBOPLASTIN TIME 30.1 SEC (23.5-35.8); PROTHROMBIN TIME 15.5 SEC (11.4-15.4)
[2017-05-07 10:50] LABS: BLOOD UREA NITROGEN 15 mg/dL (7-20); CREATININE RESULT 0.62 mg/dL (0.52-1.25)
== END ==
LOC: RAD 08:52
PROVIDERS: ATTEND Internal Medicine Hematology & Oncology
DX: C34.30 Malignant neoplasm of lower lobe, unspecified bronchus or lung (principal); Z79.01 Long term (current) use of anticoagulants; R30.0 Dysuria
CPT/HCPCS: 36415; 82565; 84520; 85025; 85610; 85730; 87086; 87088; 87186

== ENCOUNTER 2017-05-13 11:05 | Inpatient (IN) | payer MEDICARE, OTHER, MEDICAID ==
[2017-05-13] MEDS ORDERED: ASPIRIN 81 MG TABLET, CHEWABLE PO ONE (11:33)
--- NOTE | 2017-05-13 11:33 | ER Document Report ---
ED General - General Chief Complaint: General Weakness Stated Complaint: WEAKNESS Time Seen by Provider: 05/13/17 11:31 Mode of Arrival: Wheelchair Information source: Patient Notes: 77-year-old female with a history of COPD (2 L oxygen), lung cancer, history of left lower lobe lobectomy, recent recurrence) who presents to the emergency room with weakness, decreased appetite, feeling like she is going to pass out and increased work of breathing. TRAVEL OUTSIDE OF THE [place] IN LAST 30 DAYS: No - HPI Onset: Last week Onset/Duration: Gradual Quality of pain: No pain Severity: None Pain Level: Denies Associated symptoms: Nonproductive cough, Shortness of breath. denies: Fever Exacerbated by: Denies Relieved by: Denies Similar symptoms previously: Yes Recently seen / treated by doctor: Yes - Related Data Allergies/Adverse Reactions: clarithromycin [Clarithromycin] Allergy (Unknown, Verified 05/13/17 11:38) unsure of reaction codeine [Codeine] Allergy (Verified 05/13/17 11:38) hydrocodone Allergy (Verified 05/13/17 11:38) levofloxacin Allergy (Verified 05/13/17 11:38) Sulfa (Sulfonamide Antibiotics) Allergy (Verified 05/13/17 11:38) tramadol Allergy (Verified 05/13/17 11:38) Past Medical History - General Information source: Patient - Social History Smoking Status: Current Every Day Smoker Cigarette use (# per day): Yes Chew tobacco use (# tins/day): No Smoking Education Provided: No Frequency of alcohol use: None Drug Abuse: None Lives with: Family Family History: Reviewed & Not Pertinent, COPD Patient has suicidal ideation: No Patient has homicidal ideation: No - Past Medical History Cardiac Medical History: Reports: Hx Congestive Heart Failure - Reported history of congestive heart failure., Hx Hypercholesterolemia, Hx Hypertension, Hx Pulmonary Embolism - Reported distant history of pulmonary embolus. Denies: Hx Coronary Artery Disease, Hx Heart Attack Pulmonary Medical History: Reports: Hx Bronchitis, Hx COPD - 2L NC, Hx Pneumonia Denies: Hx Asthma, Hx Tuberculosis Neurological Medical History: Denies: Hx Cerebrovascular Accident, Hx Seizures Endocrine Medical History: Denies: Hx Diabetes Mellitus Type 1, Hx Diabetes Mellitus Type 2, Hx Hyperthyroidism, Hx Hypothyroidism Renal/ Medical History: Denies: Hx Peritoneal Dialysis Malignancy Medical History: Reports: Hx Lung Cancer GI Medical History: Reports: Hx Gastroesophageal Reflux Disease, Hx Hiatal Hernia, Hx Ulcer. Denies: Hx Cirrhosis, Hx Hepatitis, Hx Irritable Bowel, Hx Liver Failure Musculoskeltal Medical History: Reports Hx Arthritis - LOW BONE DENSITIY SCAN, OSTEOPOROSIS, Denies Hx Multiple Sclerosis Skin Medical History: Denies Hx MRSA, Reports Hx Psoriasis Psychiatric Medical History: Reports: Hx Depression Denies: Hx Dementia Infectious Medical History: Reports: Hx MRSA. Denies: Hx Hepatitis Past Surgical History: Reports: Hx Cholecystectomy, Hx Orthopedic Surgery - RLE. Denies: Hx Colostomy, Hx Hysterectomy, Hx Pacemaker, Hx Tonsillectomy - Immunizations Hx Diphtheria, Pertussis, Tetanus Vaccination: Yes Hx Pneumococcal Vaccination: 11/05/10 Review of Systems - Review of Systems Notes: Review of systems: Constitutional: Denies fever, chills. EENT: Denies ear pain, sinus tenderness, throat pain, throat swelling. Cardiovascular: Denies chest pain, palpitations, dyspnea or edema. Respiratory: See H&P. Abdomen: Denies abdominal pain, nausea, vomiting, diarrhea. Denies BRBPR or melena. Genitourinary: Denies dysuria, pyuria, hematuria, flank pain. Musculoskeletal: denies joint pain or swelling, denies back pain. Neurologic: Generalized weakness Skin: Denies rash, lesions. Physical Exam - Vital signs Vitals: Temp Pulse Resp BP Pulse Ox 97 F L 88 32 H 127/52 H 85 L 05/13/17 11:09 05/13/17 11:09 05/13/17 11:09 05/13/17 11:09 05/13/17 11:09 Notes: Physical exam: GENERAL: 77-year-old female, alert and oriented 3, appears in moderate distress , she is hypoxic (oxygen saturation 85% on 3 L), tachypnea (32) HEAD: Atraumatic, normocephalic. EYES: Pupils equal round and reactive to light, extraocular movements intact, sclera anicteric, conjunctiva are normal. ENT: TMs normal, nares patent, oropharynx clear without exudates. Moist mucous membranes. NECK: Normal range of motion, supple without lymphadenopathy or JVD. LUNGS: Breath sounds clear to auscultation bilaterally and equal. No wheezes rales or rhonchi. HEART: Regular rate and rhythm without murmurs, rubs or gallops. ABDOMEN: Soft, normoactive bowel sounds. No tenderness to palpation. No guarding, no rebound. No masses appreciated. EXTREMITIES: Normal range of motion, no pitting or edema. No clubbing or cyanosis. NEUROLOGICAL: Cranial nerves II through XII grossly intact. Normal speech, normal gait. PSYCH: Normal mood, normal affect. SKIN: Warm, Dry, normal turgor, no rashes or lesions noted. Course - Vital Signs Vital signs: Temp Pulse Resp BP Pulse Ox 97 F L 88 30 H 117/65 94 05/13/17 11:09 05/13/17 11:09 05/13/17 13:01 05/13/17 13:01 05/13/17 13:01 - Laboratory Result Diagrams: 05/13/17 11:30 05/13/17 12:20 Laboratory results interpreted by me: 05/13/17 05/13/17 11:30 12:20 WBC 12.0 H Hgb 15.9 H Hct 48.6 H MCV 104 H MCH 34.0 H RDW 15.2 H Seg Neutrophils % 81.6 H Lymphocytes % 8.4 L Absolute Neutrophils 9.8 H Calcium 8.2 L Creatine Kinase < 20 L Albumin 3.1 L - Diagnostic Test Radiology reviewed: Image reviewed, Reports reviewed - Possible new infiltrate. Nothing definite. - EKG Interpretation by Me Rate: Normal Rhythm: NSR - EKG shows normal sinus rhythm with a ventricular rate of 91, there is T-wave inversions anteriorly Discharge - Discharge Clinical Impression: COPD exacerbation Condition: Stable Disposition: ADMITTED INPATIENT Admitting Provider: Hospitalist - dr sutton Unit Admitted: Medical Floor Referrals: UMU GATICA MD [Primary Care Provider] - Follow up as needed
[2017-05-13 11:45] LABS: ABSOLUTE BASOPHILS # (AUTO) 0.1 10^3/uL (0.0-0.2); ABSOLUTE EOSINOPHILS # (AUTO) 0.3 10^3/uL (0.0-0.6); ABSOLUTE MONOCYTES (AUTO) 0.9 10^3/uL (0.1-1.4); ABSOLUTE NEUT (AUTO) 9.8 10^3/uL (1.7-8.2); BASOPHILS % (AUTO) 0.5 % (0-2); EOSINOPHILS % (AUTO) 2.3 % (0-6); HEMATOCRIT 48.6 % (36.0-47.0); HEMOGLOBIN 15.9 g/dL (12.0-15.5); HGB HCT DIFFERENCE -0.9; LYMPHOCYTES % (AUTO) 8.4 % (13-45); MEAN CORPUSCULAR HGB CONC 32.8 g/dL (32.0-36.0); MEAN CORPUSCULAR VOLUME 104 fl (80-97); MONOCYTES % (AUTO) 7.2 % (3-13); RED BLOOD COUNT 4.69 10^6/uL (3.72-5.28); RED CELL DISTRIBUTION WIDTH 15.2 % (11.5-14.0); SEGMENTED NEUTROPHILS % (AUTO) 81.6 % (42-78)
--- NOTE | 2017-05-13 11:56 | RADIOLOGY REPORT (SQ) ---
EXAM DESCRIPTION: CHEST SINGLE VIEW COMPLETED DATE/TIME: 05/13/2017 11:46 am REASON FOR STUDY: sob COMPARISON: January 2017 EXAM PARAMETERS: NUMBER OF VIEWS: One view. TECHNIQUE: Single frontal radiographic view of the chest acquired. RADIATION DOSE: NA LIMITATIONS: Patient is rotated on the current study. FINDINGS: LUNGS AND PLEURA: Extensive chronic appearing changes are identified. Confluent densities are identified in the lung bases in left perihilar region which has the appearance of small bilatera l pleural effusions and I cannot exclude some associated atelectasis or infiltrate in the lung bases and left perihilar region. MEDIASTINUM AND HILAR STRUCTURES: No masses. Contour normal. HEART AND VASCULAR STRUCTURES: The configuration of the heart and mediastinal structures is unchanged . BONES: No acute findings. HARDWARE: None in the chest. OTHER: No other significant finding. IMPRESSION: Acute changes superimposed on chronic underlying changes as noted above TECHNICAL DOCUMENTATION: JOB ID: [id number]
[2017-05-13 11:58] LABS: PROTHROMBIN TIME 14.6 SEC (11.4-15.4)
[2017-05-13] MEDS ORDERED: IPRATROPIUM/ALBUTEROL 0.5-2.5 MG/3 ML AMPUL NEB ONE ×2 (12:21→12:52)
[2017-05-13] MEDS ORDERED: CEFTRIAXONE 1 GM/D5W RTU 50 ML IV ONE (12:22)
[2017-05-13 12:47] LABS: ALANINE AMINOTRANSFERASE 22 U/L (9-52); ALBUMIN 3.1 g/dL (3.5-5.0); ALKALINE PHOSPHATASE 71 U/L (38-126); ANION GAP 7 (5-19); ASPARTATE AMINO TRANSFERASE 20 U/L (14-36); BILIRUBIN,DIRECT 0.3 mg/dL (0.0-0.4); BILIRUBIN,TOTAL 0.7 mg/dL (0.2-1.3); BLOOD UREA NITROGEN 11 mg/dL (7-20); CALCIUM 8.2 mg/dL (8.4-10.2); CARBON DIOXIDE 29 mmol/L (22-30); CHLORIDE 102 mmol/L (98-107); CREATINE KINASE < 20 U/L (30-135); CREATININE RESULT 0.68 mg/dL (0.52-1.25); GLUCOSE 92 mg/dL (75-110); POTASSIUM 4.4 mmol/L (3.6-5.0); SODIUM 138.2 mmol/L (137-145); TOTAL PROTEIN 6.8 g/dL (6.3-8.2)
[2017-05-13] MEDS ORDERED: METHYLPREDNISOLONE INJ 125 MG/2 ML SDV IV ONE (12:52)
[2017-05-13 12:58] LABS: CREATINE KINASE MB 1.04 ng/mL (<4.55)
[2017-05-13 12:59] LABS: TROPONIN I < 0.012 ng/mL
[2017-05-13 13:16] LABS: APPEARANCE,URINE SLIGHTLY-CLOUDY; BILIRUBIN,URINE NEGATIVE (NEGATIVE); GLUCOSE, URINE NEGATIVE (NEGATIVE); KETONES,URINE NEGATIVE (NEGATIVE); LEUKOCYTE ESTERASE,URINE TRACE (NEGATIVE); NITRITE,URINE NEGATIVE (NEGATIVE); PROTEIN,URINE 100 mg/dL (NEGATIVE); UROBILINOGEN,URINE NEGATIVE mg/dL (<2.0)
[2017-05-13] MEDS ORDERED: ACETAMINOPHEN 325 MG TABLET PO PRN (13:40)
[2017-05-13] MEDS ORDERED: ONDANSETRON 4 MG TAB.RAPDIS PO PRN (13:40)
[2017-05-13] MEDS ORDERED: ONDANSETRON HCL INJ/PF 4 MG/2 ML SDV IV PRN (13:40)
[2017-05-13] MEDS ORDERED: (PENDING PHARMACY ID) (Umeclidinium Brm/Vilanterol Tr [Anoro Ellipta 62.5-25 Mcg Inh] 1 EA IH PRN (13:56)
[2017-05-13] MEDS ORDERED: FLUTICASONE FUROATE 200 MCG IH PRN (13:56)
[2017-05-13] MEDS ORDERED: (PENDING PHARMACY ID) (Meclizine Hcl [Meclizine Hcl] 25 MG) PO PRN (13:56)
[2017-05-13] MEDS ORDERED: MECLIZINE HCL 25 MG TABLET PO PRN (14:23)
--- NOTE | 2017-05-13 14:25 | PDOC H&P ---
History of Present Illness Admission Date/PCP: 05/13/17 13:28 UMU GATICA MD Patient complains of: Cough and shortness of breath. History of Present Illness: NENITA ELIAS is a 77 year old female with a history of COPD chronically on oxygen at home at 2 L per nasal cannula who was recently diagnosed with recurrence of lung cancer with a right upper lobe nodule. She is scheduled for a lung biopsy on Sunday to confirm this diagnosis. She reports a one-week history of a cough productive of white sputum. She also has had worsening wheezing worsening shortness of breath. She denies any fevers or chills however. She denies orthopnea or PND. Denies any chest pain. She denies any lower extremity edema. She does have a history of pulmonary embolism in the distant past. The patient has a history of having a left-sided lobectomy for lung cancer in the past. Patient reports that she continues to smoke but is down to 1 cigarette daily. Past Medical History Cardiac Medical History: Reports: Congestive Heart Failure - Reported history of congestive heart failure., Hyperlipidema, Hypertension, Pulmonary Embolism - Reported distant history of pulmonary embolus. Denies: Coronary Artery Disease, Myocardial Infarction Pulmonary Medical History: Reports: Bronchitis, Chronic Obstructive Pulmonary Disease (COPD) - 2L NC, Pneumonia Denies: Asthma, Tuberculosis Neurological Medical History: Denies: Seizures Endocrine Medical History: Denies: Diabetes Mellitus Type 1, Diabetes Mellitus Type 2, Hyperthyroidism, Hypothyroidism Malignancy Medical History: Reports: Lung Cancer GI Medical History: Reports: Gastroesophageal Reflux Disease, Hiatal Hernia Denies: Cirrhosis, Hepatitis Musculoskeltal Medical History: Reports: Arthritis - LOW BONE DENSITIY SCAN, OSTEOPOROSIS Skin Medical History: Reports: Psoriasis Psychiatric Medical History: Reports: Depression Denies: Dementia Hematology: Reports: Anemia Infectious Medical History: Reports: Methicillin-Resistant Staph Aureus Past Surgical History Past Surgical History: Reports: Cholecystectomy, Orthopedic Surgery - RLE, Other - Left partial pneumonectomy Denies: Colostomy, Hysterectomy, Pacemaker, Tonsillectomy Social History Information Source: Patient Lives with: Family Smoking Status: Current Every Day Smoker Frequency of Alcohol Use: None Hx Recreational Drug Use: No Drugs: None Hx Prescription Drug Abuse: No - Advance Directive Resuscitation Status: Do Not Resuscitate Surrogate healthcare decision maker:: Son Family History Family History: COPD Family History: Mother at age 84 and had no chronic health problems. Father at age 65. She is unaware of any health problems that he had. Parental Family History Reviewed: Yes Children Family History Reviewed: No Sibling(s) Family History Reviewed.: No Medication/Allergy Home Medications: Lisinopril 20 mg PO BID 09/28/15 Metoprolol Tartrate 25 mg PO BID 09/28/15 Omeprazole 40 mg PO DAILY 04/19/16 Citalopram Hydrobromide [Celexa 20 mg Tablet] 10 mg PO DAILY #30 tablet Docusate Sodium [Colace 100 mg Capsule] 100 mg PO BID #20 capsule 07/24/16 Clonazepam [Klonopin 1 mg Tablet] 0.5 mg PO Q12HP PRN #30 tablet 11/01/16 Guaifenesin [Mucinex Sr 600 mg Tablet.sa] 1,200 mg PO Q12 tablet.sa 11/01/16 Ondansetron HCl [Zofran 4 mg Tablet] 1 tab PO Q6H PRN #20 tablet 02/16/17 Amlodipine Besylate 5 mg PO DAILY 05/13/17 Calcium Carbonate [Calcium] 600 mg PO DAILY 05/13/17 Ferrous Sulfate [Iron] 325 mg PO BID 05/13/17 Fluticasone Furoate [Arnuity Ellipta] 100 mcg IH DAILY PRN 05/13/17 Fluticasone Propionate [Flonase Nasal [place] 50 Mcg/[place] 16 gm] 2 spray NASL Q12 PRN 05/13/17 L. Acidophilus/Bifid. Animalis [Probiotic 5 Billion Cell Cap] 1 each PO BID 07/22 Meclizine HCl 25 mg PO TID PRN 05/13/17 Mirtazapine 30 mg PO DAILY 05/13/17 Sucralfate [Carafate 1 gm Tablet] 1 gm PO BID 05/13/17 Umeclidinium Brm/Vilanterol Tr [Anoro Ellipta 62.5-25 Mcg INH] 1 each IH DAILY PRN 05/13/17 Allergies/Adverse Reactions: clarithromycin [Clarithromycin] Allergy (Unknown, Verified 05/13/17 11:38) unsure of reaction codeine [Codeine] Allergy (Verified 05/13/17 11:38) hydrocodone Allergy (Verified 05/13/17 11:38) levofloxacin Allergy (Verified 05/13/17 11:38) Sulfa (Sulfonamide Antibiotics) Allergy (Verified 05/13/17 11:38) tramadol Allergy (Verified 05/13/17 11:38) Review of Systems Constitutional: ABSENT: chills, fever(s), headache(s), weight gain, weight loss Cardiovascular: ABSENT: chest pain, dyspnea on exertion, edema, orthropnea, palpitations Respiratory: PRESENT: as per HPI Gastrointestinal: ABSENT: abdominal pain, constipation, diarrhea, hematemesis, hematochezia, nausea, vomiting Genitourinary: ABSENT: dysuria, hematuria Musculoskeletal: ABSENT: joint swelling Integumentary: ABSENT: rash, wounds Neurological: ABSENT: abnormal gait, abnormal speech, confusion, dizziness, focal weakness, syncope Psychiatric: ABSENT: anxiety, depression Endocrine: ABSENT: cold intolerance, heat intolerance, polydipsia, polyuria Hematologic/Lymphatic: ABSENT: easy bleeding, easy bruising Physical Exam Vital Signs: Temp Pulse Resp BP Pulse Ox 97 F L 88 30 H 117/65 94 05/13/17 11:09 05/13/17 11:09 05/13/17 13:01 05/13/17 13:01 05/13/17 13:01 General appearance: PRESENT: mild distress Head exam: PRESENT: atraumatic, normocephalic Eye exam: PRESENT: conjunctiva pink, EOMI, PERRLA. ABSENT: scleral icterus Ear exam: PRESENT: normal external ear exam Mouth exam: PRESENT: moist, tongue midline Neck exam: ABSENT: carotid bruit, JVD, lymphadenopathy, thyromegaly Respiratory exam: PRESENT: rhonchi - Course rhonchi bilaterally. ABSENT: rales , wheezes Cardiovascular exam: PRESENT: RRR. ABSENT: diastolic murmur, rubs, systolic murmur Pulses: PRESENT: normal dorsalis pedis pul Vascular exam: PRESENT: normal capillary refill GI/Abdominal exam: PRESENT: normal bowel sounds, soft. ABSENT: distended, guarding, mass, organolmegaly, rebound, tenderness Rectal exam: PRESENT: deferred Extremities exam: PRESENT: other - Has abnormality of the right leg from previous fracture. ABSENT: calf tenderness, clubbing, pedal edema Neurological exam: PRESENT: alert, awake, oriented to person, oriented to place , oriented to time, oriented to situation, CN II-XII grossly intact. ABSENT: motor sensory deficit Psychiatric exam: PRESENT: appropriate affect, normal mood. ABSENT: homicidal ideation, suicidal ideation Skin exam: PRESENT: dry, intact, warm. ABSENT: cyanosis, rash Results Impressions: Chest X-Ray 05/13/17 11:33 IMPRESSION: Acute changes superimposed on chronic underlying changes as noted above Assessment & Plan - Diagnosis (1) COPD exacerbation Is this a current diagnosis for this admission?: YesPlan: Patient has a cough of white sputum along with wheezing. Will treat with IV steroids, nebulizers, antibiotics. Does not have any obvious pneumonia. Patient is chronically on oxygen. Will give BiPAP if need be. Has recently been diagnosed with recurrence of her lung cancer and is scheduled for a biopsy of the right upper lobe mass on Sunday. (2) Lung cancer Is this a current diagnosis for this admission?: YesPlan: History of left partial pneumonectomy. She is scheduled for a biopsy Sunday of a right upper lobe mass that is presumed to be a recurrence of her lung cancer. (3) Acute and chronic respiratory failure with hypoxia Is this a current diagnosis for this admission?: Yes (4) Anemia of chronic disease Is this a current diagnosis for this admission?: Yes (5) GERD (gastroesophageal reflux disease) Qualifiers: Esophagitis presence: without esophagitis Qualified Code(s): K21.9 - Gastro-esophageal reflux disease without esophagitis Is this a current diagnosis for this admission?: Yes (6) HTN (hypertension) Qualifiers: Hypertension type: essential hypertension Qualified Code(s): I10 - Essential (primary) hypertension Is this a current diagnosis for this admission?: Yes (7) History of pulmonary embolism Is this a current diagnosis for this admission?: Yes (8) DNR (do not resuscitate) Is this a current diagnosis for this admission?: YesPlan: Patient and her son are in agreement with DNR - Time Time Spent: 50 to 70 Minutes - Inpatient Certification Medical Necessity: Need Close Monitoring Due to Risk of Patient Decompensation
[2017-05-13] MEDS: METHYLPREDNISOLONE INJ 40 MG/1 ML SDV IV SCH ×2 (16:45→22:15)
[2017-05-13] MEDS: SUCRALFATE 1 GM TABLET PO SCH ×2 (16:45→22:15)
[2017-05-13] MEDS ORDERED: CLONAZEPAM 1 MG TABLET PO ONE (16:45)
[2017-05-13] MEDS: FERROUS SULFATE 325 MG TABLET PO SCH (17:33)
--- NOTE | 2017-05-13 17:59 | EKG REPORT ---
SEVERITY:- ABNORMAL ECG - SINUS RHYTHM PROBABLE LEFT ATRIAL ABNORMALITY PROBABLE RVH W/ SECONDARY REPOL ABNORMALITY NONSPECIFIC ST-T CHANGES- INFERIOR LEADS : Confirmed by: Herb Kennedy MD 13-May-2017 17:59:13
[2017-05-13] MEDS ORDERED: LACTOBACILLUS ACIDOPHILUS 250 MG TAB PO SCH (18:00)
[2017-05-13] MEDS ORDERED: (PENDING PHARMACY ID) (Lisinopril [Lisinopril] 20 MG) PO SCH (18:00)
[2017-05-13] MEDS ORDERED: BIFIDOBACTERIUM ANIMALIS PO SCH (18:00)
[2017-05-13] MEDS ORDERED: [UNRECOGNIZED DRUG - OTHER] PO SCH (18:00)
[2017-05-13] MEDS ORDERED: LACTOBACILLUS ACIDOPHILUS PO SCH (18:00)
[2017-05-13] MEDS ORDERED: DOCUSATE SODIUM 100 MG CAPSULE PO SCH (18:00)
[2017-05-13] MEDS: MIRTAZAPINE 15 MG TABLET PO SCH (22:15)
[2017-05-13] MEDS: FAMOTIDINE 20 MG TABLET PO SCH (22:15)
[2017-05-13] MEDS: GUAIFENESIN 600 MG TABLET.SA PO SCH (22:15)
[2017-05-13] MEDS: CLONAZEPAM 1 MG TABLET PO SCH (22:16)
[2017-05-13] MEDS: FLUTICASONE NASAL SPRAY 50 MCG/SPRY 120 SPRAY/16 GM NASL PRN (23:57)
[2017-05-14] MEDS: LISINOPRIL 10 MG TABLET PO SCH ×3 (02:33→21:09)
[2017-05-14] MEDS: METOPROLOL TARTRATE 25 MG TABLET PO SCH ×3 (02:33→21:10)
[2017-05-14] MEDS: METHYLPREDNISOLONE INJ 40 MG/1 ML SDV IV SCH ×3 (05:57→21:11)
[2017-05-14 06:21] LABS: HEMATOCRIT 47.8 % (36.0-47.0); HEMOGLOBIN 15.4 g/dL (12.0-15.5); HGB HCT DIFFERENCE -1.6; MEAN CORPUSCULAR HEMOGLOBIN 33.7 pg (27.0-33.4); MEAN CORPUSCULAR HGB CONC 32.3 g/dL (32.0-36.0); MEAN CORPUSCULAR VOLUME 105 fl (80-97); RED BLOOD COUNT 4.58 10^6/uL (3.72-5.28); RED CELL DISTRIBUTION WIDTH 15.2 % (11.5-14.0); WHITE BLOOD COUNT 11.4 10^3/uL (4.0-10.5)
[2017-05-14 06:22] LABS: ANION GAP 6 (5-19); BLOOD UREA NITROGEN 10 mg/dL (7-20); CALCIUM 8.2 mg/dL (8.4-10.2); CARBON DIOXIDE 29 mmol/L (22-30); CHLORIDE 108 mmol/L (98-107); CREATININE RESULT 0.55 mg/dL (0.52-1.25); GLUCOSE 159 mg/dL (75-110); POTASSIUM 5.2 mmol/L (3.6-5.0); SODIUM 142.8 mmol/L (137-145)
[2017-05-14 06:35] LABS: BASOPHILS % (MANUAL) 0 % (0-2); EOSINOPHILS % (MANUAL) 0 % (0-6); LYMPHOCYTES % (MANUAL) 2 % (13-45); TOTAL CELLS COUNTED 100
[2017-05-14 06:42] LABS: ANISOCYTOSIS SLIGHT; TOXIC VACUOLATION PRESENT
[2017-05-14] MEDS ORDERED: ONDANSETRON HCL INJ/PF 4 MG/2 ML SDV IV PRN (08:15)
[2017-05-14] MEDS: SUCRALFATE 1 GM TABLET PO SCH ×4 (08:48→21:10)
[2017-05-14] MEDS: CITALOPRAM HYDROBROMIDE 20 MG TABLET PO SCH (09:26)
[2017-05-14] MEDS: CEFTRIAXONE 1 GM/D5W RTU 50 ML IV SCH (09:26)
[2017-05-14] MEDS: DILTIAZEM HCL 30 MG TABLET PO SCH ×3 (09:27→21:10)
[2017-05-14] MEDS: CLONAZEPAM 1 MG TABLET PO SCH ×2 (09:27→21:10)
[2017-05-14] MEDS: FAMOTIDINE 20 MG TABLET PO SCH ×2 (09:27→21:10)
[2017-05-14] MEDS: GUAIFENESIN 600 MG TABLET.SA PO SCH ×2 (09:27→21:09)
[2017-05-14] MEDS: LANSOPRAZOLE 30 MG TAB.RAP.DR PO SCH (09:28)
[2017-05-14] MEDS: FERROUS SULFATE 325 MG TABLET PO SCH ×2 (09:28→17:53)
[2017-05-14] MEDS: ALBUTEROL SULFATE 0.083% NEB 2.5 MG/3 ML AMPUL NEB PRN (09:39)
[2017-05-14] MEDS: FLUTICASONE NASAL SPRAY 50 MCG/SPRY 120 SPRAY/16 GM NASL PRN ×2 (09:39→21:14)
[2017-05-14] MEDS ORDERED: (PENDING PHARMACY ID) (Calcium Carbonate [Calcium] 600 MG) PO SCH (10:00)
[2017-05-14] MEDS ORDERED: ENOXAPARIN SODIUM INJ 40 MG/0.4 ML DISP.SYRIN SUBCUT SCH (10:00)
[2017-05-14] MEDS ORDERED: AMLODIPINE BESYLATE 5 MG TABLET PO SCH (10:00)
[2017-05-14] MEDS ORDERED: AZITHROMYCIN 500 MG in DEXTROSE 5%-WATER 250 ML IV SCH (10:00)
[2017-05-14] MEDS ORDERED: (PENDING PHARMACY ID) (Mirtazapine [Mirtazapine] 30 MG) PO SCH (10:00)
[2017-05-14] MEDS ORDERED: CALCIUM CARBONATE 500 MG TABLET PO SCH (10:00)
--- NOTE | 2017-05-14 10:37 | PDOC PROGRESS REPORT ---
Subjective Progress Note for:: 05/14/17 Subjective:: Reports that her shortness of breath is improved. Physical Exam Vital Signs: Temp Pulse Resp BP Pulse Ox 97.7 F 123 H 24 H 140/66 H 83 L 05/14/17 04:54 05/14/17 09:34 05/14/17 09:34 05/14/17 04:54 05/14/17 09:34 Intake & Output 05/13/17 05/14/17 05/15/17 06:59 06:59 06:59 Intake Total 2335 Balance 2335 Weight 65.2 kg General appearance: PRESENT: no acute distress Eye exam: PRESENT: conjunctiva pink. ABSENT: scleral icterus Mouth exam: PRESENT: moist, tongue midline Neck exam: ABSENT: carotid bruit, JVD, lymphadenopathy, thyromegaly Respiratory exam: PRESENT: wheezes - Few scattered expiratory wheezes. ABSENT: rales, rhonchi Cardiovascular exam: PRESENT: irregular rhythm, tachycardia. ABSENT: diastolic murmur, rubs, systolic murmur GI/Abdominal exam: PRESENT: normal bowel sounds, soft. ABSENT: distended, guarding, mass, organolmegaly, rebound, tenderness Extremities exam: ABSENT: calf tenderness, clubbing, pedal edema Neurological exam: PRESENT: alert, awake, oriented to person, oriented to place , oriented to time, oriented to situation, CN II-XII grossly intact. ABSENT: motor sensory deficit Psychiatric exam: PRESENT: appropriate affect Skin exam: PRESENT: dry, intact, warm. ABSENT: cyanosis, rash Results Laboratory Results: 05/14/17 05:41 05/14/17 05:41 05/14/17 05/14/17 05:41 05:41 WBC 11.4 H RBC 4.58 Hgb 15.4 Hct 47.8 H MCV 105 H MCH 33.7 H MCHC 32.3 RDW 15.2 H Plt Count 172 Seg Neutrophils % Not Reportable Lymphocytes % Not Reportable Monocytes % Not Reportable Eosinophils % Not Reportable Basophils % Not Reportable Absolute Neutrophils Not Reportable Absolute Lymphocytes Not Reportable Absolute Monocytes Not Reportable Absolute Eosinophils Not Reportable Absolute Basophils Not Reportable Sodium 142.8 Potassium 5.2 H Chloride 108 H Carbon Dioxide 29 Anion Gap 6 BUN 10 Creatinine 0.55 Est GFR ( Amer) > 60 Est GFR (Non-Af Amer) > 60 Glucose 159 H Calcium 8.2 L 05/13/17 15:38 Troponin I < 0.012 Impressions: Chest X-Ray 05/13/17 11:33 IMPRESSION: Acute changes superimposed on chronic underlying changes as noted above Assessment & Plan - Diagnosis (1) COPD exacerbation Is this a current diagnosis for this admission?: YesPlan: Patient has a cough of white sputum along with wheezing. Will treat with IV steroids, nebulizers, antibiotics. Does not have any obvious pneumonia. Patient is chronically on oxygen. COPD is improving with less wheezing today. Has recently been diagnosed with recurrence of her lung cancer and had been scheduled for a biopsy of the right upper lobe mass on Sunday. Will order a biopsy be done during his hospitalization. Will DC her Lovenox in anticipation of the biopsy (2) Lung cancer Is this a current diagnosis for this admission?: YesPlan: History of left partial pneumonectomy. She was scheduled for an outpatient biopsy Sunday of a right upper lobe mass that is presumed to be a recurrence of her lung cancer. (3) Acute and chronic respiratory failure with hypoxia Is this a current diagnosis for this admission?: Yes (4) Anemia of chronic disease Is this a current diagnosis for this admission?: Yes (5) GERD (gastroesophageal reflux disease) Qualifiers: Esophagitis presence: without esophagitis Qualified Code(s): K21.9 - Gastro-esophageal reflux disease without esophagitis Is this a current diagnosis for this admission?: Yes (6) HTN (hypertension) Qualifiers: Hypertension type: essential hypertension Qualified Code(s): I10 - Essential (primary) hypertension Is this a current diagnosis for this admission?: Yes (7) History of pulmonary embolism Is this a current diagnosis for this admission?: Yes (8) DNR (do not resuscitate) Is this a current diagnosis for this admission?: YesPlan: Patient and her son are in agreement with DNR - Time Time Spent with patient: 25-34 minutes - Inpatient Certification Medical Necessity: Need Close Monitoring Due to Risk of Patient Decompensation - Plan Summary Plan Summary: Will ask radiology for a biopsy of the right lung mass
--- NOTE | 2017-05-14 11:13 | Physician Advisory Note ---
Physician Advisor ProgressNote .: [facility] medical record for this patient. Physician Advisor Statement: Excellent documentation of "Ac on chr hypoxemic resp failure" in this pt w/ baseline 2L O2 needs & initial sat 85% on 3L w/tachycardia/tachypnea/"mod distress" initially. Please consider documentin. "Suspected Acute bronchitis" - or other reason for the abx [not all COPD exac.s require abx] 2. "chronic CHF, suspect ___ type" Status: 77yo w/COPD, recurrent lung CA, prior LLL lobectomy, ongoing tobacco use, chronic CHF but needing IVF @125, underlying HTN/HLD, almost meeting SIRS criteria, w/Ac on chr resp failure which continues, persistent tachycardia (now irregular), recurrent tachypnea to mid-20s. Rx'd nebs, O2, NS@125 w/daily wts, IV Rocephin, Solumedrol 40 q8h, po metoprolol then also dilt po, CT lung bx, f/ u labs. Approp for Inpt status. Thanks! CK
[2017-05-14 14:33] LABS: ARTERIAL BLOOD BASE EXCESS -4.5 mmol/L; ARTERIAL BLOOD O2 SATURATION 96.3 % (94-98)
[2017-05-14] MEDS ORDERED: MORPHINE SULFATE 10 MG/ML INJ IM PRN (15:45)
[2017-05-14] MEDS ORDERED: HALOPERIDOL LACTATE INJ 5 MG/1 ML VIAL IM ONE (16:30)
[2017-05-14] MEDS: NICOTINE 14 MG/24 HR PATCH.TD24 TD SCH (20:11)
[2017-05-14] MEDS: MIRTAZAPINE 15 MG TABLET PO SCH (21:10)
[2017-05-14] MEDS: FLUTICASONE PROPIONATE HFA 110 MCG/PUFF 12 GM MDI IH SCH (21:14)
[2017-05-14] MEDS ORDERED: FLUTICASONE PROPIONATE IH SCH (22:00)
[2017-05-15] MEDS: DILTIAZEM HCL 30 MG TABLET PO SCH ×4 (02:48→22:54)
[2017-05-15] MEDS: METHYLPREDNISOLONE INJ 40 MG/1 ML SDV IV SCH ×2 (06:22→16:38)
[2017-05-15 06:45] LABS: HEMATOCRIT 44.4 % (36.0-47.0); HEMOGLOBIN 14.1 g/dL (12.0-15.5); HGB HCT DIFFERENCE -2.1; MEAN CORPUSCULAR HEMOGLOBIN 33.4 pg (27.0-33.4); MEAN CORPUSCULAR HGB CONC 31.7 g/dL (32.0-36.0); MEAN CORPUSCULAR VOLUME 105 fl (80-97); RED BLOOD COUNT 4.21 10^6/uL (3.72-5.28); RED CELL DISTRIBUTION WIDTH 15.6 % (11.5-14.0); WHITE BLOOD COUNT 15.8 10^3/uL (4.0-10.5)
[2017-05-15 06:53] LABS: ANION GAP 6 (5-19); BLOOD UREA NITROGEN 15 mg/dL (7-20); CALCIUM 8.7 mg/dL (8.4-10.2); CARBON DIOXIDE 30 mmol/L (22-30); CHLORIDE 107 mmol/L (98-107); CREATININE RESULT 0.58 mg/dL (0.52-1.25); GLUCOSE 109 mg/dL (75-110); POTASSIUM 5.4 mmol/L (3.6-5.0)
[2017-05-15 07:09] LABS: BASOPHILS % (MANUAL) 0 % (0-2); EOSINOPHILS % (MANUAL) 0 % (0-6); LYMPHOCYTES % (MANUAL) 1 % (13-45); TOTAL CELLS COUNTED 100
[2017-05-15 07:16] LABS: ANISOCYTOSIS 1+; TOXIC VACUOLATION PRESENT
[2017-05-15] MEDS ORDERED: (PENDING PHARMACY ID) (Citalopram Hydrobromide [Celexa 40 Mg Tablet] 1 TAB) PO SCH (10:00)
[2017-05-15] MEDS ORDERED: MEGESTROL ACETATE 800 MG PO SCH (10:00)
[2017-05-15] MEDS ORDERED: FLUTICASONE FUROATE 200 MCG IH SCH (10:00)
[2017-05-15] MEDS: CEFTRIAXONE 1 GM/D5W RTU 50 ML IV SCH (10:55)
[2017-05-15] MEDS: FAMOTIDINE 20 MG TABLET PO SCH ×2 (10:55→22:52)
[2017-05-15] MEDS: CLONAZEPAM 1 MG TABLET PO SCH ×2 (10:56→22:57)
[2017-05-15] MEDS: GUAIFENESIN 600 MG TABLET.SA PO SCH ×2 (10:56→22:53)
[2017-05-15] MEDS: LANSOPRAZOLE 30 MG TAB.RAP.DR PO SCH (10:56)
[2017-05-15] MEDS: METOPROLOL TARTRATE 25 MG TABLET PO SCH ×2 (10:56→22:53)
[2017-05-15] MEDS: FERROUS SULFATE 325 MG TABLET PO SCH ×2 (10:56→19:58)
[2017-05-15] MEDS: LISINOPRIL 10 MG TABLET PO SCH (10:56)
[2017-05-15] MEDS: CITALOPRAM HYDROBROMIDE 20 MG TABLET PO SCH (10:56)
[2017-05-15] MEDS: MEGESTROL ACETATE SUSP 400 MG/10 ML UDCUP PO SCH (10:57)
[2017-05-15] MEDS: FLUTICASONE NASAL SPRAY 50 MCG/SPRY 120 SPRAY/16 GM NASL PRN ×2 (10:57→22:53)
[2017-05-15] MEDS: FLUTICASONE PROPIONATE HFA 110 MCG/PUFF 12 GM MDI IH SCH ×2 (10:57→22:53)
[2017-05-15] MEDS: SUCRALFATE 1 GM TABLET PO SCH ×4 (10:57→22:52)
[2017-05-15] MEDS: ALBUTEROL SULFATE 0.083% NEB 2.5 MG/3 ML AMPUL NEB PRN (15:07)
--- NOTE | 2017-05-15 15:28 | PDOC PROGRESS REPORT ---
Subjective Progress Note for:: 05/15/17 Subjective:: Patient reportedly refusing to her BiPAP. Patient states she feels better in terms of breathing. There is cough but no chest pain. No purulent expectoration. Still with some wheezing. Patient supposed to go to lung biopsy as per oncology service in [place]. Patient recently diagnosed with recurrent lung cancer. Physical Exam Vital Signs: Temp Pulse Resp BP Pulse Ox 98.3 F 80 16 140/64 H 88 L 05/15/17 11:24 05/15/17 15:10 05/15/17 15:10 05/15/17 11:24 05/15/17 11:24 Intake & Output 05/14/17 05/15/17 05/16/17 06:59 06:59 06:59 Intake Total 2335 560 Output Total 600 Balance 2335 -40 Weight 65.2 kg 65.2 kg General appearance: PRESENT: no acute distress, other - Nasal cannula oxygen Head exam: PRESENT: normocephalic Eye exam: PRESENT: EOMI Mouth exam: PRESENT: moist, neck supple Neck exam: ABSENT: JVD Respiratory exam: PRESENT: rhonchi - Scattered bilateral, wheezes - Mild in the left side Cardiovascular exam: PRESENT: RRR. ABSENT: gallop GI/Abdominal exam: PRESENT: soft. ABSENT: distended, tenderness Extremities exam: PRESENT: other - Trace lower extremity edema Neurological exam: PRESENT: alert, awake, oriented to situation Skin exam: PRESENT: dry, warm. ABSENT: cyanosis Results Laboratory Results: 05/15/17 05:39 05/15/17 05:39 05/15/17 05/15/17 05:39 05:39 WBC 15.8 H RBC 4.21 Hgb 14.1 Hct 44.4 MCV 105 H MCH 33.4 MCHC 31.7 L RDW 15.6 H Plt Count 155 Seg Neutrophils % Not Reportable Lymphocytes % Not Reportable Monocytes % Not Reportable Eosinophils % Not Reportable Basophils % Not Reportable Absolute Neutrophils Not Reportable Absolute Lymphocytes Not Reportable Absolute Monocytes Not Reportable Absolute Eosinophils Not Reportable Absolute Basophils Not Reportable Sodium 143.0 Potassium 5.4 H Chloride 107 Carbon Dioxide 30 Anion Gap 6 BUN 15 Creatinine 0.58 Est GFR ( Amer) > 60 Est GFR (Non-Af Amer) > 60 Glucose 109 Calcium 8.7 05/13/17 15:38 Nasophary ([facility] Only) MRSA Surveillance Culture - Final NO MRSA RECOVERED 05/13/17 15:38 Troponin I < 0.012 Impressions: Chest X-Ray 05/13/17 11:33 IMPRESSION: Acute changes superimposed on chronic underlying changes as noted above Assessment & Plan - Diagnosis (1) Acute and chronic respiratory failure with hypoxia Is this a current diagnosis for this admission?: Yes (2) COPD exacerbation Is this a current diagnosis for this admission?: Yes (3) Lung cancer Qualifiers: Laterality: unspecified laterality Lung location: unspecified part of lung Qualified Code(s): C34.90 - Malignant neoplasm of unspecified part of unspecified bronchus or lung Is this a current diagnosis for this admission?: Yes (4) Hyperlipidemia Qualifiers: Hyperlipidemia type: unspecified Qualified Code(s): E78.5 - Hyperlipidemia, unspecified Is this a current diagnosis for this admission?: Yes (5) Osteoporosis Qualifiers: Osteoporosis type: unspecified Presence of current pathological fracture: unspecified Qualified Code(s): M81.0 - Age-related osteoporosis without current pathological fracture Is this a current diagnosis for this admission?: Yes (6) History of CHF (congestive heart failure) Is this a current diagnosis for this admission?: Yes (7) Anemia of chronic disease Is this a current diagnosis for this admission?: Yes (8) GERD (gastroesophageal reflux disease) Qualifiers: Esophagitis presence: without esophagitis Qualified Code(s): K21.9 - Gastro-esophageal reflux disease without esophagitis Is this a current diagnosis for this admission?: Yes (9) HTN (hypertension) Qualifiers: Hypertension type: essential hypertension Qualified Code(s): I10 - Essential (primary) hypertension Is this a current diagnosis for this admission?: Yes (10) History of pulmonary embolism Is this a current diagnosis for this admission?: Yes (11) Mild dementia Is this a current diagnosis for this admission?: Yes - Time Time Spent with patient: 25-34 minutes - Plan Summary Plan Summary: I will begin the patient on Advair, Spiriva and correct her hyperkalemia. I will hold the MARYANN inhibitor. I will increase the steroids and continue the bronchodilators via nebulizers. Continue supportive care. I will hold any lung biopsy at this time.
[2017-05-15] MEDS ORDERED: SODIUM POLYSTYRENE SULFONATE 15 GM/60 ML PO ONE (16:00)
[2017-05-15] MEDS: NICOTINE 14 MG/24 HR PATCH.TD24 TD SCH (19:59)
[2017-05-15] MEDS: MIRTAZAPINE 15 MG TABLET PO SCH (22:52)
[2017-05-15] MEDS: FLUTICASONE/SALMETEROL DISKUS 250-50 MCG/DOSE IH SCH (22:53)
[2017-05-15] MEDS: TIOTROPIUM BROMIDE DPI 5 CAP/KIT (18 MCG/CAP) IH SCH (22:57)
[2017-05-16] MEDS: METHYLPREDNISOLONE INJ 40 MG/1 ML SDV IV SCH ×5 (00:57→23:30)
[2017-05-16] MEDS: NORMAL SALINE 1000 ML 1,000 ML IV PRN ×2 (01:39→17:04)
[2017-05-16] MEDS: DILTIAZEM HCL 30 MG TABLET PO SCH ×4 (02:35→20:39)
[2017-05-16] MEDS: CLONAZEPAM 1 MG TABLET PO SCH ×2 (05:47→17:04)
[2017-05-16] MEDS: SUCRALFATE 1 GM TABLET PO SCH ×4 (08:14→21:52)
[2017-05-16] MEDS: MEGESTROL ACETATE SUSP 400 MG/10 ML UDCUP PO SCH (08:14)
[2017-05-16] MEDS: ALBUTEROL SULFATE 0.083% NEB 2.5 MG/3 ML AMPUL NEB PRN (08:35)
[2017-05-16] MEDS: CEFTRIAXONE 1 GM/D5W RTU 50 ML IV SCH (11:40)
[2017-05-16] MEDS: FAMOTIDINE 20 MG TABLET PO SCH ×2 (11:41→21:51)
[2017-05-16] MEDS: CITALOPRAM HYDROBROMIDE 20 MG TABLET PO SCH (11:41)
[2017-05-16] MEDS: GUAIFENESIN 600 MG TABLET.SA PO SCH ×2 (11:41→21:51)
[2017-05-16] MEDS: METOPROLOL TARTRATE 25 MG TABLET PO SCH ×2 (11:43→21:52)
[2017-05-16] MEDS: FERROUS SULFATE 325 MG TABLET PO SCH ×2 (11:44→17:05)
[2017-05-16] MEDS: LANSOPRAZOLE 30 MG TAB.RAP.DR PO SCH (11:44)
[2017-05-16] MEDS: FLUTICASONE NASAL SPRAY 50 MCG/SPRY 120 SPRAY/16 GM NASL PRN ×2 (11:46→21:51)
[2017-05-16] MEDS: FLUTICASONE/SALMETEROL DISKUS 250-50 MCG/DOSE IH SCH ×2 (11:47→21:58)
[2017-05-16] MEDS: FLUTICASONE PROPIONATE HFA 110 MCG/PUFF 12 GM MDI IH SCH ×2 (11:47→21:50)
--- NOTE | 2017-05-16 13:18 | PDOC PROGRESS REPORT ---
Subjective Progress Note for:: 05/16/17 Subjective:: Patient is breathing better, wheezing resolved. Still having episodes of desaturation however. Still requiring BiPAP. No reported temperature spikes, diarrhea, nausea or vomiting, diaphoresis nor chest pain or pleurisy. Patient is supposed to undergo CT-guided biopsy today but held due to her overall status at this time. Physical Exam Vital Signs: Temp Pulse Resp BP Pulse Ox 98.8 F 91 17 146/64 H 93 05/16/17 10:56 05/16/17 10:56 05/16/17 10:56 05/16/17 10:56 05/16/17 10:56 Intake & Output 05/15/17 05/16/17 05/17/17 06:59 06:59 06:59 Intake Total 560 2770 Output Total 600 600 Balance -40 2170 Weight 65.2 kg 65.2 kg General appearance: PRESENT: no acute distress, cooperative Head exam: PRESENT: normocephalic Eye exam: PRESENT: EOMI Mouth exam: PRESENT: moist, neck supple Neck exam: ABSENT: JVD Respiratory exam: PRESENT: decreased breath sounds, rhonchi - Bilateral minimal , unlabored. ABSENT: wheezes Cardiovascular exam: PRESENT: RRR. ABSENT: gallop GI/Abdominal exam: PRESENT: hypoactive bowel sounds, soft. ABSENT: distended, tenderness Extremities exam: ABSENT: pedal edema Neurological exam: PRESENT: alert, awake, oriented to situation Psychiatric exam: ABSENT: agitated Focused psych exam: ABSENT: restlessness Skin exam: PRESENT: dry, warm. ABSENT: cyanosis Results Laboratory Results: 05/15/17 05:39 05/15/17 05:39 05/13/17 15:38 Nasophary ([facility] Only) MRSA Surveillance Culture - Final NO MRSA RECOVERED 05/13/17 15:38 Troponin I < 0.012 Impressions: Chest X-Ray 05/13/17 11:33 IMPRESSION: Acute changes superimposed on chronic underlying changes as noted above Assessment & Plan - Diagnosis (1) Acute and chronic respiratory failure with hypoxia Is this a current diagnosis for this admission?: Yes (2) COPD exacerbation Is this a current diagnosis for this admission?: Yes (3) Lung cancer Qualifiers: Laterality: unspecified laterality Lung location: unspecified part of lung Qualified Code(s): C34.90 - Malignant neoplasm of unspecified part of unspecified bronchus or lung Is this a current diagnosis for this admission?: Yes (4) Hyperlipidemia Qualifiers: Hyperlipidemia type: unspecified Qualified Code(s): E78.5 - Hyperlipidemia, unspecified Is this a current diagnosis for this admission?: Yes (5) Osteoporosis Qualifiers: Osteoporosis type: unspecified Presence of current pathological fracture: unspecified Qualified Code(s): M81.0 - Age-related osteoporosis without current pathological fracture Is this a current diagnosis for this admission?: Yes (6) History of CHF (congestive heart failure) Is this a current diagnosis for this admission?: Yes (7) Anemia of chronic disease Is this a current diagnosis for this admission?: Yes (8) GERD (gastroesophageal reflux disease) Qualifiers: Esophagitis presence: without esophagitis Qualified Code(s): K21.9 - Gastro-esophageal reflux disease without esophagitis Is this a current diagnosis for this admission?: Yes (9) HTN (hypertension) Qualifiers: Hypertension type: essential hypertension Qualified Code(s): I10 - Essential (primary) hypertension Is this a current diagnosis for this admission?: Yes (10) History of pulmonary embolism Is this a current diagnosis for this admission?: Yes (11) Mild dementia Is this a current diagnosis for this admission?: Yes - Time Time Spent with patient: 25-34 minutes - Plan Summary Plan Summary: We are going to continue intravenous steroids. We will hold her Megace. Agree with holding lung biopsy at this time. We will repeat the chest x-ray, recheck potassium. Continue current antibiotics for now. Continue supportive care and wean BiPAP.
--- NOTE | 2017-05-16 16:01 | RADIOLOGY REPORT (SQ) ---
EXAM DESCRIPTION: CHEST SINGLE VIEW COMPLETED DATE/TIME: 05/16/2017 1:44 pm REASON FOR STUDY: SOB, pneumonia COMPARISON: PET-CT 04/29/2017 AP chest 05/13/2017 EXAM PARAMETERS: NUMBER OF VIEWS: One view. TECHNIQUE: Single frontal radiographic view of the chest acquired. RADIATION DOSE: NA LIMITATIONS: None. FINDINGS: LUNGS AND PLEURA: Slight increase in right pleural effusion compared to 05/13/2017 chest sharona m. A moderate-sized right pleural effusion and small left pleural effusion are present. Increased interstitial markings are present in the mid and lower lungs worrisome for alveolar edema. Underlying pulmonary fibrosis could not be excluded. The pleural-based nodular densities seen in the anterior right hemithorax on PET-CT 04/29/2017 are dif ficult to visualize by plain film. MEDIASTINUM AND HILAR STRUCTURES: No masses. Contour normal. HEART AND VASCULAR STRUCTURES: No cardiomegaly BONES: Old left thoracotomy HARDWARE: None in the chest. OTHER: No other significant finding. IMPRESSION: Slight increase in right pleural effusion now moderate in size. Increased interstitial markings at the bases, edema versus fibrosis TECHNICAL DOCUMENTATION: JOB ID: [id number]
[2017-05-16] MEDS: NICOTINE 14 MG/24 HR PATCH.TD24 TD SCH (17:07)
[2017-05-16] MEDS: TIOTROPIUM BROMIDE DPI 5 CAP/KIT (18 MCG/CAP) IH SCH (17:07)
[2017-05-16] MEDS ORDERED: FUROSEMIDE INJ/PF 40 MG/4 ML SDV IV ONE (19:00)
[2017-05-16] MEDS: MIRTAZAPINE 15 MG TABLET PO SCH (21:52)
[2017-05-17] MEDS: DILTIAZEM HCL 30 MG TABLET PO SCH ×4 (03:18→21:58)
[2017-05-17] MEDS: FUROSEMIDE INJ/PF 40 MG/4 ML SDV IV SCH ×2 (05:20→18:44)
[2017-05-17] MEDS: METHYLPREDNISOLONE INJ 40 MG/1 ML SDV IV SCH (05:21)
[2017-05-17] MEDS: CLONAZEPAM 1 MG TABLET PO SCH ×2 (05:49→18:43)
--- NOTE | 2017-05-17 08:46 | PDOC PROGRESS REPORT ---
Subjective Progress Note for:: 05/17/17 Subjective:: Patient still requiring the BiPAP. No reported temperature spikes, respiratory distress, chills nor fever. No reported diarrhea. Chest x-ray shows increased effusion. Diuretics was started. Urine output still positive balance. Physical Exam Vital Signs: Temp Pulse Resp BP Pulse Ox 98.6 F 89 28 H 161/68 H 94 05/17/17 04:00 05/17/17 04:00 05/17/17 04:00 05/17/17 04:00 05/17/17 04:00 Intake & Output 05/16/17 05/17/17 05/18/17 06:59 06:59 06:59 Intake Total 2770 2595 Output Total 600 1400 Balance 2170 1195 Weight 65.2 kg 69.2 kg General appearance: PRESENT: no acute distress, other - On BiPAP Head exam: PRESENT: normocephalic Eye exam: PRESENT: conjunctiva pale Mouth exam: PRESENT: moist, neck supple Neck exam: ABSENT: JVD Respiratory exam: PRESENT: decreased breath sounds - Lower lung kraus, rhonchi - Bilateral Cardiovascular exam: PRESENT: RRR. ABSENT: gallop GI/Abdominal exam: PRESENT: hypoactive bowel sounds, soft. ABSENT: distended Extremities exam: PRESENT: other - Trace edema Psychiatric exam: ABSENT: agitated Focused psych exam: ABSENT: restlessness Skin exam: PRESENT: dry, warm. ABSENT: cyanosis Results Laboratory Results: 05/15/17 05:39 05/16/17 13:39 05/16/17 13:39 Potassium 3.9 05/13/17 15:38 Troponin I < 0.012 Impressions: Chest X-Ray 05/16/17 00:00 IMPRESSION: Slight increase in right pleural effusion now moderate in size. Increased interstitial markings at the bases, edema versus fibrosis Assessment & Plan - Diagnosis (1) Acute and chronic respiratory failure with hypoxia Is this a current diagnosis for this admission?: Yes (2) COPD exacerbation Is this a current diagnosis for this admission?: Yes (3) Lung cancer Qualifiers: Laterality: unspecified laterality Lung location: unspecified part of lung Qualified Code(s): C34.90 - Malignant neoplasm of unspecified part of unspecified bronchus or lung Is this a current diagnosis for this admission?: Yes (4) Hyperlipidemia Qualifiers: Hyperlipidemia type: unspecified Qualified Code(s): E78.5 - Hyperlipidemia, unspecified Is this a current diagnosis for this admission?: Yes (5) Osteoporosis Qualifiers: Osteoporosis type: unspecified Presence of current pathological fracture: unspecified Qualified Code(s): M81.0 - Age-related osteoporosis without current pathological fracture Is this a current diagnosis for this admission?: Yes (6) History of CHF (congestive heart failure) Is this a current diagnosis for this admission?: Yes (7) Anemia of chronic disease Is this a current diagnosis for this admission?: Yes (8) GERD (gastroesophageal reflux disease) Qualifiers: Esophagitis presence: without esophagitis Qualified Code(s): K21.9 - Gastro-esophageal reflux disease without esophagitis Is this a current diagnosis for this admission?: Yes (9) HTN (hypertension) Qualifiers: Hypertension type: essential hypertension Qualified Code(s): I10 - Essential (primary) hypertension Is this a current diagnosis for this admission?: Yes (10) History of pulmonary embolism Is this a current diagnosis for this admission?: Yes (11) Mild dementia Is this a current diagnosis for this admission?: Yes - Time Time Spent with patient: 25-34 minutes - Plan Summary Plan Summary: Case discussed with interventional radiology. Rather than proceeding with a biopsy we will do a thoracentesis both diagnostic and therapeutic. Continue antibiotics and steroids for now. Recheck WBC and electrolytes in the morning. Continue ventilatory support. Continue supportive care.
[2017-05-17] MEDS ORDERED: FLUTICASONE NASAL SPRAY 50 MCG/SPRY 120 SPRAY/16 GM NASL PRN (10:41)
--- NOTE | 2017-05-17 12:07 | RADIOLOGY REPORT (SQ) ---
EXAM DESCRIPTION: CHEST SINGLE VIEW COMPLETED DATE/TIME: 05/17/2017 11:53 am REASON FOR STUDY: S/P RT THORACENTESIS COMPARISON: Chest films 05/16/2017 EXAM PARAMETERS: NUMBER OF VIEWS: One view. TECHNIQUE: Single frontal radiographic view of the chest acquired. RADIATION DOSE: NA LIMITATIONS: None. FINDINGS: LUNGS AND PLEURA: Film is immediately post thoracentesis, with removal of 500 mL of serosa nguineous fluid. No right pneumothorax. Improved aeration at the right lung base, with persistent a irspace disease medially, and persistent nodule versus airspace disease along the inferior aspect of the right minor fissure. Benign right apical pleuroparenchymal calcification. Stable increased inte rstitial markings at the right lung base. On the left side, patient is post thoracotomy with volume loss and chronic appearing scarring at the left lung base. No gross left pleural effusion or pneumothorax. MEDIASTINUM AND HILAR STRUCTURES: No masses. Contour normal. HEART AND VASCULAR STRUCTURES: No gross cardiomegaly BONES: No acute findings. Old right proximal humerus metaphysis nonunited fracture HARDWARE: None in the chest. OTHER: No other significant finding. IMPRESSION: No pneumothorax post right thoracentesis Improved aeration right lung base. TECHNICAL DOCUMENTATION: JOB ID: [id number]
--- NOTE | 2017-05-17 12:08 | RADIOLOGY REPORT (SQ) ---
EXAM DESCRIPTION: U/S THORACENTESIS WITH IMAGING COMPLETED DATE/TIME: 05/17/2017 11:51 am REASON FOR STUDY: PLEURAL EFFUSION COMPARISON: Chest films 05/16/2017, PET-CT 04/29/2017 LIMITATIONS: None. PROCEDURE: Procedure, risks, benefit, and alternative explained to patient who then gave written con sent. The right posterolateral chest wall was marked using ultrasound guidance. A time-out was call ed for correct marking verification. Chest prepped and draped using sterile technique. Local anesthe diana achieved using 3.5 ml of 1% lidocaine injection. A 5fr needle/catheter set was introduced into t he right pleural space. Fluid was aspirated. The catheter was removed and the entry site was covere d with sterile bandage. No immediate complications noted. Fluid sent for testing as per Dr. Naidu. Cytology is included. Images acquired during the procedure were stored on PACS. FINDINGS: ENTRY SITE: Right posterolateral chest FLUID VOLUME: 500 mL FLUID ANALYSIS: Serosanguineous fluid OTHER: Sent for testing, including cytology IMPRESSION: SUCCESSFUL THORACENTESIS USING ULTRASOUND GUIDANCE. COMMENT: Patient medication list reviewed: Yes- Quality ID# [id number]:Eligible professional attests to doc umenting in the medical record they obtained, updated, or reviewed the patient's current medications. Quality ID #[id number]: Final reports for procedures using fluoroscopy that document radiation exposure terrell rhys, or exposure time and number of fluorographic images (if radiation exposure indices are not avail able) TECHNICAL DOCUMENTATION: JOB ID: [id number] [email or web address]- All Rights Reserved
[2017-05-17] MEDS: CEFTRIAXONE 1 GM/D5W RTU 50 ML IV SCH (12:53)
[2017-05-17] MEDS: SUCRALFATE 1 GM TABLET PO SCH ×3 (12:54→21:07)
[2017-05-17] MEDS: FERROUS SULFATE 325 MG TABLET PO SCH ×2 (12:54→18:50)
[2017-05-17] MEDS: METOPROLOL TARTRATE 25 MG TABLET PO SCH ×2 (12:55→21:59)
[2017-05-17] MEDS: GUAIFENESIN 600 MG TABLET.SA PO SCH ×2 (12:55→21:08)
[2017-05-17] MEDS: METHYLPREDNISOLONE INJ 125 MG/2 ML SDV IV SCH ×2 (12:56→18:43)
[2017-05-17] MEDS: FLUTICASONE/SALMETEROL DISKUS 250-50 MCG/DOSE IH SCH ×2 (12:56→21:05)
[2017-05-17] MEDS: FAMOTIDINE 20 MG TABLET PO SCH ×2 (12:58→21:58)
--- NOTE | 2017-05-17 14:32 | RADIOLOGY REPORT (SQ) ---
EXAM DESCRIPTION: CHEST SINGLE VIEW COMPLETED DATE/TIME: 05/17/2017 2:00 pm REASON FOR STUDY: 2 HOURS S/P RT THORACENTESIS COMPARISON: AP chest 05/17/2017 EXAM PARAMETERS: NUMBER OF VIEWS: One view. TECHNIQUE: Single frontal radiographic view of the chest acquired. RADIATION DOSE: NA LIMITATIONS: None. FINDINGS: LUNGS AND PLEURA: No pneumothorax 2 hours post thoracentesis. Trace residual right pleura l fluid, ill-defined densities right middle lobe along the minor fissure, and right lower lung inters titial fluid or fibrosis persists. Post left thoracotomy and lobectomy with chronic blunting of the left lateral costophrenic sulcus. Stable biapical pleural-parenchymal scarring. MEDIASTINUM AND HILAR STRUCTURES: No masses. Contour normal. HEART AND VASCULAR STRUCTURES: Heart normal in size. Normal vasculature. BONES: Nonunited right proximal humeral metaphysis fracture HARDWARE: None in the chest. OTHER: No other significant finding. IMPRESSION: No pneumothorax 2 hours post thoracentesis TECHNICAL DOCUMENTATION: JOB ID: [id number]
[2017-05-17] MEDS: TIOTROPIUM BROMIDE DPI 5 CAP/KIT (18 MCG/CAP) IH SCH (18:44)
[2017-05-17] MEDS: NICOTINE 14 MG/24 HR PATCH.TD24 TD SCH (18:44)
[2017-05-17] MEDS: MORPHINE SULFATE 10 MG/ML INJ IM PRN (20:43)
[2017-05-17] MEDS: MIRTAZAPINE 15 MG TABLET PO SCH (21:58)
[2017-05-18] MEDS: METHYLPREDNISOLONE INJ 125 MG/2 ML SDV IV SCH ×4 (00:10→21:44)
[2017-05-18] MEDS: MORPHINE SULFATE 10 MG/ML INJ IM PRN (01:05)
[2017-05-18] MEDS: DILTIAZEM HCL 30 MG TABLET PO SCH ×4 (03:26→21:45)
[2017-05-18] MEDS: FUROSEMIDE INJ/PF 40 MG/4 ML SDV IV SCH (05:13)
[2017-05-18] MEDS: LANSOPRAZOLE 30 MG TAB.RAP.DR PO SCH (05:14)
[2017-05-18] MEDS: CLONAZEPAM 1 MG TABLET PO SCH ×2 (05:14→19:17)
[2017-05-18 06:09] LABS: HEMATOCRIT 49.6 % (36.0-47.0); HEMOGLOBIN 15.9 g/dL (12.0-15.5); HGB HCT DIFFERENCE -1.9; MEAN CORPUSCULAR HEMOGLOBIN 33.9 pg (27.0-33.4); MEAN CORPUSCULAR HGB CONC 32.1 g/dL (32.0-36.0); MEAN CORPUSCULAR VOLUME 106 fl (80-97); RED CELL DISTRIBUTION WIDTH 15.3 % (11.5-14.0); WHITE BLOOD COUNT 10.1 10^3/uL (4.0-10.5)
[2017-05-18 06:29] LABS: BLOOD UREA NITROGEN 33 mg/dL (7-20); CALCIUM 8.1 mg/dL (8.4-10.2); CHLORIDE 92 mmol/L (98-107); CREATININE RESULT 0.77 mg/dL (0.52-1.25); GLUCOSE 187 mg/dL (75-110); POTASSIUM 3.5 mmol/L (3.6-5.0); SODIUM 141.4 mmol/L (137-145)
[2017-05-18 06:38] LABS: ANION GAP 8 (5-19); CARBON DIOXIDE 41 mmol/L (22-30)
[2017-05-18] MEDS: ALBUTEROL SULFATE 0.083% NEB 2.5 MG/3 ML AMPUL NEB PRN (09:34)
[2017-05-18] MEDS: CEFTRIAXONE 1 GM/D5W RTU 50 ML IV SCH (10:28)
[2017-05-18] MEDS: SUCRALFATE 1 GM TABLET PO SCH ×4 (10:33→21:45)
[2017-05-18] MEDS: GUAIFENESIN 600 MG TABLET.SA PO SCH ×2 (10:35→21:45)
[2017-05-18] MEDS: FAMOTIDINE 20 MG TABLET PO SCH ×2 (10:35→19:17)
[2017-05-18] MEDS: FERROUS SULFATE 325 MG TABLET PO SCH ×2 (10:35→21:44)
[2017-05-18] MEDS: METOPROLOL TARTRATE 25 MG TABLET PO SCH ×2 (10:35→21:45)
[2017-05-18] MEDS: FLUTICASONE/SALMETEROL DISKUS 250-50 MCG/DOSE IH SCH ×2 (10:36→21:46)
--- NOTE | 2017-05-18 11:55 | PDOC PROGRESS REPORT ---
Subjective Progress Note for:: 05/18/17 Subjective:: Patient is breathing better after the procedure. No paroxysmal nocturnal dyspnea. Patient tolerating nasal cannula oxygen. Denies any increasing shortness of breath. Denies purulent expectoration. No diarrhea. Denies any chest pain as well. Able to tolerate oral intake. Staff reports however that patient is somnolent most of the time. Physical Exam Vital Signs: Temp Pulse Resp BP Pulse Ox 98.4 F 82 20 100/69 93 05/17/17 19:18 05/18/17 09:34 05/18/17 09:34 05/18/17 07:51 05/18/17 09:34 Intake & Output 05/17/17 05/18/17 05/19/17 06:59 06:59 06:59 Intake Total 2595 670 Output Total 1400 700 Balance 1195 -30 Weight 69.2 kg 70 kg General appearance: PRESENT: no acute distress, other - On nasal cannula oxygen Head exam: PRESENT: normocephalic Eye exam: PRESENT: EOMI Mouth exam: PRESENT: moist, neck supple Neck exam: ABSENT: JVD Respiratory exam: PRESENT: rhonchi - Scattered bilateral. ABSENT: wheezes Cardiovascular exam: PRESENT: RRR GI/Abdominal exam: PRESENT: hypoactive bowel sounds, soft. ABSENT: distended, tenderness Extremities exam: ABSENT: pedal edema Neurological exam: PRESENT: alert, awake, oriented to situation Psychiatric exam: ABSENT: agitated Focused psych exam: ABSENT: restlessness Skin exam: PRESENT: dry, warm. ABSENT: cyanosis Results Laboratory Results: 05/18/17 05:56 05/18/17 05:56 05/18/17 05/18/17 05:56 05:56 WBC 10.1 RBC 4.70 Hgb 15.9 H Hct 49.6 H MCV 106 H MCH 33.9 H MCHC 32.1 RDW 15.3 H Plt Count 162 Sodium 141.4 Potassium 3.5 L Chloride 92 L Carbon Dioxide 41 H* Anion Gap 8 BUN 33 H Creatinine 0.77 Est GFR ( Amer) > 60 Est GFR (Non-Af Amer) > 60 Glucose 187 H Calcium 8.1 L 05/13/17 15:38 Troponin I < 0.012 Impressions: Chest X-Ray 05/17/17 00:00 IMPRESSION: No pneumothorax 2 hours post thoracentesis Thoracentesis Ultrasound 05/17/17 00:00 IMPRESSION: SUCCESSFUL THORACENTESIS USING ULTRASOUND GUIDANCE. Assessment & Plan - Diagnosis (1) Acute and chronic respiratory failure with hypoxia Is this a current diagnosis for this admission?: Yes (2) COPD exacerbation Is this a current diagnosis for this admission?: Yes (3) Lung cancer Qualifiers: Laterality: unspecified laterality Lung location: unspecified part of lung Qualified Code(s): C34.90 - Malignant neoplasm of unspecified part of unspecified bronchus or lung Is this a current diagnosis for this admission?: Yes (4) Hyperlipidemia Qualifiers: Hyperlipidemia type: unspecified Qualified Code(s): E78.5 - Hyperlipidemia, unspecified Is this a current diagnosis for this admission?: Yes (5) Osteoporosis Qualifiers: Osteoporosis type: unspecified Presence of current pathological fracture: unspecified Qualified Code(s): M81.0 - Age-related osteoporosis without current pathological fracture Is this a current diagnosis for this admission?: Yes (6) History of CHF (congestive heart failure) Is this a current diagnosis for this admission?: Yes (7) Anemia of chronic disease Is this a current diagnosis for this admission?: Yes (8) GERD (gastroesophageal reflux disease) Qualifiers: Esophagitis presence: without esophagitis Qualified Code(s): K21.9 - Gastro-esophageal reflux disease without esophagitis Is this a current diagnosis for this admission?: Yes (9) HTN (hypertension) Qualifiers: Hypertension type: essential hypertension Qualified Code(s): I10 - Essential (primary) hypertension Is this a current diagnosis for this admission?: Yes (10) History of pulmonary embolism Is this a current diagnosis for this admission?: Yes (11) Mild dementia Is this a current diagnosis for this admission?: Yes - Time Time Spent with patient: 25-34 minutes - We are going to discontinue the Celexa. We will decrease Klonopin dose. We will begin physical therapy, try to increase ambulation. Switch to oral antibiotic. Awaiting cytology report.
[2017-05-18] MEDS: AMOXICILLIN TR/POT CLAVULANATE 500-125 MG TAB PO SCH ×2 (14:20→21:45)
[2017-05-18] MEDS: NICOTINE 14 MG/24 HR PATCH.TD24 TD SCH (19:17)
[2017-05-18] MEDS: TIOTROPIUM BROMIDE DPI 5 CAP/KIT (18 MCG/CAP) IH SCH (19:18)
[2017-05-18] MEDS: MIRTAZAPINE 15 MG TABLET PO SCH (21:45)
[2017-05-19] MEDS: MORPHINE SULFATE 10 MG/ML INJ IM PRN ×2 (01:39→18:09)
[2017-05-19] MEDS: METHYLPREDNISOLONE INJ 125 MG/2 ML SDV IV SCH ×4 (01:39→18:09)
[2017-05-19] MEDS: DILTIAZEM HCL 30 MG TABLET PO SCH ×2 (03:57→08:11)
[2017-05-19] MEDS: LANSOPRAZOLE 30 MG TAB.RAP.DR PO SCH (06:26)
[2017-05-19] MEDS: CLONAZEPAM 1 MG TABLET PO SCH ×2 (06:26→17:09)
[2017-05-19] MEDS: AMOXICILLIN TR/POT CLAVULANATE 500-125 MG TAB PO SCH ×3 (06:26→21:22)
[2017-05-19] MEDS: SUCRALFATE 1 GM TABLET PO SCH ×4 (08:11→21:23)
[2017-05-19] MEDS ORDERED: FUROSEMIDE INJ/PF 40 MG/4 ML SDV IV SCH (10:00)
[2017-05-19] MEDS: GUAIFENESIN 600 MG TABLET.SA PO SCH ×2 (10:24→21:23)
[2017-05-19] MEDS: FERROUS SULFATE 325 MG TABLET PO SCH ×2 (10:24→17:09)
[2017-05-19] MEDS: METOPROLOL TARTRATE 25 MG TABLET PO SCH ×2 (10:24→21:22)
[2017-05-19] MEDS: FAMOTIDINE 20 MG TABLET PO SCH ×2 (10:24→21:22)
[2017-05-19] MEDS: FLUTICASONE/SALMETEROL DISKUS 250-50 MCG/DOSE IH SCH ×2 (10:41→21:23)
--- NOTE | 2017-05-19 11:22 | PDOC CONSULTATION ---
Consultation Consult Date: 05/19/17 Attending physician:: ADA SOSA Consult reason:: New dx extensive stage SCLC History of Present Illness Admission Date/PCP: 05/13/17 13:40 UMU GATICA MD Patient complains of: New dx SCLC History of Present Illness: 77-year-old female with remote history of non-small cell lung cancer, status post lung resection in [place], that was the left lung, recently she went to her PCP over the last 2 months with increasing shortness of breath, ultimately abnormalities noted on CT chest, she was then seen by Dr. Liu of oncology in [place], who did PET/CT, this indicated right middle lobe mass with pleural effusion, multiple mediastinal nodes, as well as a right proximal humerus uptake , there was a fracture there about 2-3 months ago per son, she comes in with increasing shortness of breath and weakness, she has been on and off BiPAP over the last 2 days, she is very weak and today she is confused. Of note she had an MRI of the brain done about a month ago with this new diagnosis which was negative. She had thoracentesis done, this indicated carcinoma consistent with small cell lung cancer. Today we had a long discussion about this diagnosis with the son, who is power of traffic law attorney. Past Medical History Cardiac Medical History: Reports: Congestive Heart Failure - Reported history of congestive heart failure., Hyperlipidema, Hypertension, Pulmonary Embolism - Reported distant history of pulmonary embolus. Denies: Coronary Artery Disease, Myocardial Infarction Pulmonary Medical History: Reports: Bronchitis, Chronic Obstructive Pulmonary Disease (COPD) - 2L NC, Pneumonia Denies: Asthma, Tuberculosis Neurological Medical History: Denies: Seizures Endocrine Medical History: Denies: Diabetes Mellitus Type 1, Diabetes Mellitus Type 2, Hyperthyroidism, Hypothyroidism Malignancy Medical History: Reports: Lung Cancer GI Medical History: Reports: Gastroesophageal Reflux Disease, Hiatal Hernia Denies: Cirrhosis, Hepatitis Musculoskeltal Medical History: Reports: Arthritis - LOW BONE DENSITIY SCAN, OSTEOPOROSIS Skin Medical History: Reports: Psoriasis Psychiatric Medical History: Reports: Depression Denies: Dementia Hematology: Reports: Anemia Infectious Medical History: Reports: Methicillin-Resistant Staph Aureus Past Surgical History Past Surgical History: Reports: Cholecystectomy, Orthopedic Surgery - RLE, Other - Left partial pneumonectomy Denies: Colostomy, Hysterectomy, Pacemaker, Tonsillectomy Social History Lives with: Family Smoking Status: Current Every Day Smoker Cigarettes Packs Per Day: 0.5 Last Time Smoked: today Frequency of Alcohol Use: None Hx Recreational Drug Use: No Drugs: None Hx Prescription Drug Abuse: No - Advance Directive Resuscitation Status: Do Not Resuscitate Family History Family History: COPD Parental Family History Reviewed: Yes Children Family History Reviewed: Yes Sibling(s) Family History Reviewed.: Yes Medication/Allergy Home Medications: Lisinopril 20 mg PO BID 09/28/15 Metoprolol Tartrate 25 mg PO Q12 09/28/15 Omeprazole 40 mg PO DAILY 04/19/16 Amlodipine Besylate 5 mg PO DAILY 05/13/17 Ciprofloxacin HCl [Cipro 500 mg Tablet] 500 mg PO Q12 05/13/17 Citalopram Hydrobromide [Celexa 40 mg Tablet] 1 tab PO DAILY 05/13/17 Clonazepam [Klonopin 1 mg Tablet] 1 mg PO Q12 05/13/17 Fluticasone Furoate [Arnuity Ellipta] 200 mcg IH DAILY 05/13/17 Fluticasone Propionate [Flovent HFA 44 mcg MDI] 2 puff IH Q12 05/13/17 Meclizine HCl 25 mg PO Q8HP PRN 05/13/17 Megestrol Acetate [Megace] 800 mg PO DAILY 05/13/17 Mirtazapine 30 mg PO QHS 05/13/17 Sucralfate [Carafate 1 gm Tablet] 1 gm PO Q6 05/13/17 Allergies/Adverse Reactions: clarithromycin [Clarithromycin] Allergy (Unknown, Verified 05/13/17 11:38) unsure of reaction codeine [Codeine] Allergy (Verified 05/13/17 11:38) hydrocodone Allergy (Verified 05/13/17 11:38) levofloxacin Allergy (Verified 05/13/17 11:38) Sulfa (Sulfonamide Antibiotics) Allergy (Verified 05/13/17 11:38) tramadol Allergy (Verified 05/13/17 11:38) Review of Systems ROS unobtainable: Due to mental status Physical Exam Vital Signs: Temp Pulse Resp BP Pulse Ox 98.2 F 103 H 23 H 102/58 L 98 05/19/17 08:00 05/19/17 08:00 05/19/17 08:00 05/19/17 08:00 05/19/17 08:00 Intake & Output 05/18/17 05/19/17 05/20/17 06:59 06:59 06:59 Intake Total 670 1180 Output Total 700 Balance -30 1180 Weight 70 kg 67.1 kg General appearance: PRESENT: no acute distress, well-developed, well-nourished Head exam: PRESENT: atraumatic, normocephalic Eye exam: PRESENT: conjunctiva pink, EOMI, PERRLA. ABSENT: scleral icterus Ear exam: PRESENT: normal external ear exam Mouth exam: PRESENT: moist, tongue midline Neck exam: ABSENT: carotid bruit, JVD, lymphadenopathy, thyromegaly Respiratory exam: PRESENT: clear to auscultation brittni. ABSENT: rales, rhonchi, wheezes Cardiovascular exam: PRESENT: RRR. ABSENT: diastolic murmur, rubs, systolic murmur Pulses: PRESENT: normal dorsalis pedis pul Vascular exam: PRESENT: normal capillary refill GI/Abdominal exam: PRESENT: normal bowel sounds, soft. ABSENT: distended, guarding, mass, organolmegaly, rebound, tenderness Rectal exam: PRESENT: deferred Extremities exam: PRESENT: full ROM. ABSENT: calf tenderness, clubbing, pedal edema Neurological exam: PRESENT: alert, awake, oriented to person, oriented to place , oriented to time, oriented to situation, CN II-XII grossly intact. ABSENT: motor sensory deficit Psychiatric exam: PRESENT: appropriate affect, normal mood. ABSENT: homicidal ideation, suicidal ideation Skin exam: PRESENT: dry, intact, warm. ABSENT: cyanosis, rash Results Laboratory Results: 05/18/17 05:56 05/18/17 05:56 05/17/17 11:25 Fluid Total Protein 3.1 Fluid LDH 129 05/13/17 15:38 Blood Blood Culture - Final NO GROWTH IN 5 DAYS 05/13/17 15:38 Troponin I < 0.012 Impressions: Chest X-Ray 05/17/17 00:00 IMPRESSION: No pneumothorax 2 hours post thoracentesis Thoracentesis Ultrasound 05/17/17 00:00 IMPRESSION: SUCCESSFUL THORACENTESIS USING ULTRASOUND GUIDANCE. Assessment & Plan - Diagnosis (1) Lung cancer Qualifiers: Laterality: right Lung location: middle lobe of lung Qualified Code(s): C34.2 - Malignant neoplasm of middle lobe, bronchus or lung Is this a current diagnosis for this admission?: YesPlan: Extensive stage/stage IV small cell lung cancer, I had a long discussion with son, I gave him options, it does not appear that she may be strong enough for systemic chemotherapy, to that extent we would recommend comfort care measures. We went over options including inpatient hospice versus home hospice, it sounds like family would like to go towards home hospice. However they need to still talk with each other about this and see if that will be possible for them , we will continue with current measures for the next 48 hours and consider discharge most likely by Sunday with home hospice if that is possible, otherwise we will need to look at inpatient hospice. Today spent greater than 70 minutes with family, as well as in coordination of care. - Time Time Spent: Greater than 70 Minutes Critical Time spent with patient: 35 or more minutes - Inpatient Certification Based on my medical assessment, after consideration of the patient's comorbidities, presenting symptoms, or acuity I expect that the services needed warrant INPATIENT care.: Yes I certify that my determination is in accordance with my understanding of Medicare's requirements for reasonable and necessary INPATIENT services [42 CFR 412.3e].: Yes Medical Necessity: Need For Continuous Telemetry Monitoring
--- NOTE | 2017-05-19 14:46 | PDOC PROGRESS REPORT ---
Subjective Progress Note for:: 05/19/17 Subjective:: Patient reportedly had to her BiPAP again. Blood pressure was low earlier. No reported temperature spikes or increasing shortness of breath. Patient denies any diarrhea, nausea or vomiting, or any chest pain at this time. Physical Exam Vital Signs: Temp Pulse Resp BP Pulse Ox 98.2 F 103 H 23 H 102/58 L 98 05/19/17 08:00 05/19/17 08:00 05/19/17 08:00 05/19/17 08:00 05/19/17 08:00 Intake & Output 05/18/17 05/19/17 05/20/17 06:59 06:59 06:59 Intake Total 670 1180 Output Total 700 Balance -30 1180 Weight 70 kg 67.1 kg General appearance: PRESENT: no acute distress, cooperative Head exam: PRESENT: normocephalic Eye exam: PRESENT: EOMI Mouth exam: PRESENT: moist, neck supple Neck exam: ABSENT: JVD Respiratory exam: PRESENT: crackles - Intermittently bilateral, rhonchi - few bilateral. ABSENT: wheezes Cardiovascular exam: PRESENT: RRR. ABSENT: gallop GI/Abdominal exam: PRESENT: hypoactive bowel sounds, soft. ABSENT: distended, tenderness Extremities exam: PRESENT: other - Trace lower extremity edema Neurological exam: PRESENT: alert, awake, oriented to situation Skin exam: PRESENT: dry, warm. ABSENT: cyanosis Results Laboratory Results: 05/18/17 05:56 05/18/17 05:56 05/13/17 15:38 Blood Blood Culture - Final NO GROWTH IN 5 DAYS 05/13/17 15:38 Troponin I < 0.012 Impressions: Chest X-Ray 05/17/17 00:00 IMPRESSION: No pneumothorax 2 hours post thoracentesis Thoracentesis Ultrasound 05/17/17 00:00 IMPRESSION: SUCCESSFUL THORACENTESIS USING ULTRASOUND GUIDANCE. Assessment & Plan - Diagnosis (1) Acute and chronic respiratory failure with hypoxia Is this a current diagnosis for this admission?: Yes (2) COPD exacerbation Is this a current diagnosis for this admission?: Yes (3) Lung cancer Qualifiers: Laterality: right Lung location: middle lobe of lung Qualified Code(s): C34.2 - Malignant neoplasm of middle lobe, bronchus or lung Is this a current diagnosis for this admission?: Yes (4) Hyperlipidemia Qualifiers: Hyperlipidemia type: unspecified Qualified Code(s): E78.5 - Hyperlipidemia, unspecified Is this a current diagnosis for this admission?: Yes (5) Osteoporosis Qualifiers: Osteoporosis type: unspecified Presence of current pathological fracture: unspecified Qualified Code(s): M81.0 - Age-related osteoporosis without current pathological fracture Is this a current diagnosis for this admission?: Yes (6) History of CHF (congestive heart failure) Is this a current diagnosis for this admission?: Yes (7) Anemia of chronic disease Is this a current diagnosis for this admission?: Yes (8) GERD (gastroesophageal reflux disease) Qualifiers: Esophagitis presence: without esophagitis Qualified Code(s): K21.9 - Gastro-esophageal reflux disease without esophagitis Is this a current diagnosis for this admission?: Yes (9) HTN (hypertension) Qualifiers: Hypertension type: essential hypertension Qualified Code(s): I10 - Essential (primary) hypertension Is this a current diagnosis for this admission?: Yes (10) History of pulmonary embolism Is this a current diagnosis for this admission?: Yes (11) Mild dementia Is this a current diagnosis for this admission?: Yes - Time Time Spent with patient: 25-34 minutes - Plan Summary Plan Summary: Appreciate oncology input. Patient apparently not a candidate for chemotherapy. Hospice option was given to the patient and the family by Dr. Ramirez. In the meantime I will discontinue the patient's Lasix, discontinue the Cardizem as well. I will keep the beta-sujata however. We will continue to monitor.
[2017-05-19] MEDS: NICOTINE 14 MG/24 HR PATCH.TD24 TD SCH (17:09)
[2017-05-19] MEDS: TIOTROPIUM BROMIDE DPI 5 CAP/KIT (18 MCG/CAP) IH SCH (17:09)
[2017-05-19] MEDS: MIRTAZAPINE 15 MG TABLET PO SCH (21:22)
[2017-05-20] MEDS: METHYLPREDNISOLONE INJ 125 MG/2 ML SDV IV SCH ×4 (00:02→18:43)
[2017-05-20] MEDS: LANSOPRAZOLE 30 MG TAB.RAP.DR PO SCH (05:40)
[2017-05-20] MEDS: AMOXICILLIN TR/POT CLAVULANATE 500-125 MG TAB PO SCH ×3 (05:40→21:59)
[2017-05-20] MEDS: CLONAZEPAM 1 MG TABLET PO SCH ×2 (05:40→17:00)
[2017-05-20] MEDS: SUCRALFATE 1 GM TABLET PO SCH ×4 (08:35→21:59)
--- NOTE | 2017-05-20 09:14 | PDOC PROGRESS REPORT ---
Subjective Progress Note for:: 05/20/17 Subjective:: Patient is back on BiPAP reportedly due to desaturation. No reported temperature spikes, nausea or vomiting, diarrhea, chills or fever,. No reported agitation yesterday however last night patient reportedly trying to remove the BiPAP and get off the bed. A sitter was placed. Physical Exam Vital Signs: Temp Pulse Resp BP Pulse Ox 97.7 F 104 H 32 H 133/85 H 93 05/20/17 08:00 05/20/17 08:00 05/20/17 08:00 05/20/17 08:00 05/20/17 08:00 Intake & Output 05/19/17 05/20/17 05/21/17 06:59 06:59 06:59 Intake Total 1180 510 Balance 1180 510 Weight 67.1 kg 67.2 kg General appearance: PRESENT: no acute distress, other - On BiPAP Head exam: PRESENT: normocephalic Eye exam: PRESENT: conjunctiva pale, EOMI Mouth exam: PRESENT: moist, neck supple Neck exam: ABSENT: JVD Respiratory exam: PRESENT: rhonchi - Bilateral. ABSENT: wheezes Cardiovascular exam: PRESENT: RRR, tachycardia. ABSENT: gallop GI/Abdominal exam: PRESENT: hypoactive bowel sounds, soft. ABSENT: distended Extremities exam: PRESENT: other - Trace pretibial edema Neurological exam: PRESENT: alert, awake, oriented to situation Skin exam: PRESENT: dry, warm. ABSENT: cyanosis Results Laboratory Results: 05/18/17 05:56 05/18/17 05:56 05/13/17 15:38 Troponin I < 0.012 Impressions: Chest X-Ray 05/17/17 00:00 IMPRESSION: No pneumothorax 2 hours post thoracentesis Thoracentesis Ultrasound 05/17/17 00:00 IMPRESSION: SUCCESSFUL THORACENTESIS USING ULTRASOUND GUIDANCE. Assessment & Plan - Diagnosis (1) Acute and chronic respiratory failure with hypoxia Is this a current diagnosis for this admission?: Yes (2) COPD exacerbation Is this a current diagnosis for this admission?: Yes (3) Lung cancer Qualifiers: Laterality: right Lung location: middle lobe of lung Qualified Code(s): C34.2 - Malignant neoplasm of middle lobe, bronchus or lung Is this a current diagnosis for this admission?: Yes (4) Hyperlipidemia Qualifiers: Hyperlipidemia type: unspecified Qualified Code(s): E78.5 - Hyperlipidemia, unspecified Is this a current diagnosis for this admission?: Yes (5) Osteoporosis Qualifiers: Osteoporosis type: unspecified Presence of current pathological fracture: unspecified Qualified Code(s): M81.0 - Age-related osteoporosis without current pathological fracture Is this a current diagnosis for this admission?: Yes (6) History of CHF (congestive heart failure) Is this a current diagnosis for this admission?: Yes (7) Anemia of chronic disease Is this a current diagnosis for this admission?: Yes (8) GERD (gastroesophageal reflux disease) Qualifiers: Esophagitis presence: without esophagitis Qualified Code(s): K21.9 - Gastro-esophageal reflux disease without esophagitis Is this a current diagnosis for this admission?: Yes (9) HTN (hypertension) Qualifiers: Hypertension type: essential hypertension Qualified Code(s): I10 - Essential (primary) hypertension Is this a current diagnosis for this admission?: Yes (10) History of pulmonary embolism Is this a current diagnosis for this admission?: Yes (11) Mild dementia Is this a current diagnosis for this admission?: Yes - Time Time Spent with patient: 25-34 minutes - Plan Summary Plan Summary: We will obtain a chest x-ray. Continue supplemental oxygen. We will consult hospice services. Family awaiting decision. Continue current medications. Continue PT. Continue supportive care. Prognosis is poor.
[2017-05-20] MEDS: METOPROLOL TARTRATE 25 MG TABLET PO SCH ×2 (09:26→21:59)
[2017-05-20] MEDS: FERROUS SULFATE 325 MG TABLET PO SCH ×2 (09:26→17:00)
[2017-05-20] MEDS: FAMOTIDINE 20 MG TABLET PO SCH ×2 (09:26→21:59)
[2017-05-20] MEDS: GUAIFENESIN 600 MG TABLET.SA PO SCH ×2 (09:26→21:59)
[2017-05-20] MEDS: FLUTICASONE/SALMETEROL DISKUS 250-50 MCG/DOSE IH SCH ×2 (09:27→21:59)
--- NOTE | 2017-05-20 10:04 | RADIOLOGY REPORT (SQ) ---
EXAM DESCRIPTION: CHEST SINGLE VIEW COMPLETED DATE/TIME: 05/20/2017 9:51 am REASON FOR STUDY: Shortness of breath pleural effusion COMPARISON: 05/17/2017. EXAM PARAMETERS: NUMBER OF VIEWS: One view. TECHNIQUE: Single frontal radiographic view of the chest acquired. RADIATION DOSE: NA LIMITATIONS: Rotated. FINDINGS: LUNGS AND PLEURA: Hyperinflation. Chronic pleural and parenchymal scarring. Bilateral pl eural effusions, left greater than right. Right pleural effusion has increased. No pneumothorax. MEDIASTINUM AND HILAR STRUCTURES: No masses. Contour normal. HEART AND VASCULAR STRUCTURES: Heart normal in size. Normal vasculature. BONES: No acute findings. No change in the right shoulder fracture. HARDWARE: None in the chest. OTHER: No other significant finding. IMPRESSION: COPD WITH CHRONIC PLEURAL AND PARENCHYMAL SCARRING. SLIGHT INCREASE IN THE RIGHT PLEURA L EFFUSION. LEFT PLEURAL EFFUSION UNCHANGED. TECHNICAL DOCUMENTATION: JOB ID: [id number]
[2017-05-20] MEDS: NICOTINE 14 MG/24 HR PATCH.TD24 TD SCH (17:00)
[2017-05-20] MEDS: TIOTROPIUM BROMIDE DPI 5 CAP/KIT (18 MCG/CAP) IH SCH (17:00)
[2017-05-20] MEDS: MIRTAZAPINE 15 MG TABLET PO SCH (21:59)
[2017-05-21] MEDS: METHYLPREDNISOLONE INJ 125 MG/2 ML SDV IV SCH ×2 (00:20→07:01)
[2017-05-21] MEDS: MORPHINE SULFATE 10 MG/ML INJ IM PRN (03:04)
[2017-05-21] MEDS: AMOXICILLIN TR/POT CLAVULANATE 500-125 MG TAB PO SCH (07:01)
[2017-05-21] MEDS: LANSOPRAZOLE 30 MG TAB.RAP.DR PO SCH (07:01)
[2017-05-21] MEDS: CLONAZEPAM 1 MG TABLET PO SCH ×2 (07:01→17:18)
--- NOTE | 2017-05-21 08:27 | PDOC PROGRESS REPORT ---
Subjective Progress Note for:: 05/21/17 Subjective:: No acute events but still w/ significant desaturation, hospitalist team has spoken w/ family, most likely will need inpt hospice Physical Exam Vital Signs: Temp Pulse Resp BP Pulse Ox 97.4 F 83 21 H 100/80 99 05/21/17 07:57 05/21/17 08:08 05/21/17 08:08 05/21/17 07:57 05/21/17 08:08 Intake & Output 05/20/17 05/21/17 05/22/17 06:59 06:59 06:59 Intake Total 510 900 Balance 510 900 Weight 67.2 kg 66.9 kg General appearance: PRESENT: no acute distress, well-developed, well-nourished Head exam: PRESENT: atraumatic, normocephalic Eye exam: PRESENT: conjunctiva pink, EOMI, PERRLA. ABSENT: scleral icterus Ear exam: PRESENT: normal external ear exam Mouth exam: PRESENT: moist, tongue midline Neck exam: ABSENT: carotid bruit, JVD, lymphadenopathy, thyromegaly Respiratory exam: PRESENT: clear to auscultation brittni. ABSENT: rales, rhonchi, wheezes Cardiovascular exam: PRESENT: RRR. ABSENT: diastolic murmur, rubs, systolic murmur Pulses: PRESENT: normal dorsalis pedis pul Vascular exam: PRESENT: normal capillary refill GI/Abdominal exam: PRESENT: normal bowel sounds, soft. ABSENT: distended, guarding, mass, organolmegaly, rebound, tenderness Rectal exam: PRESENT: deferred Extremities exam: PRESENT: full ROM. ABSENT: calf tenderness, clubbing, pedal edema Neurological exam: PRESENT: alert, awake, oriented to person, oriented to place , oriented to time, oriented to situation, CN II-XII grossly intact. ABSENT: motor sensory deficit Psychiatric exam: PRESENT: appropriate affect, normal mood. ABSENT: homicidal ideation, suicidal ideation Skin exam: PRESENT: dry, intact, warm. ABSENT: cyanosis, rash Results Laboratory Results: 05/18/17 05:56 05/20/17 09:45 05/20/17 09:45 Potassium 4.0 05/17/17 11:25 Pleural Fluid Gram Stain - Final 05/17/17 11:25 Pleural Fluid Body Fluid Culture - Final NO AEROBIC OR ANAEROBIC ORGANISMS RECOVERED 05/13/17 15:38 Troponin I < 0.012 Impressions: Thoracentesis Ultrasound 05/17/17 00:00 IMPRESSION: SUCCESSFUL THORACENTESIS USING ULTRASOUND GUIDANCE. Chest X-Ray 05/20/17 09:08 IMPRESSION: COPD WITH CHRONIC PLEURAL AND PARENCHYMAL SCARRING. SLIGHT INCREASE IN THE RIGHT PLEURAL EFFUSION. LEFT PLEURAL EFFUSION UNCHANGED. Assessment & Plan - Diagnosis (1) Lung cancer Qualifiers: Laterality: right Lung location: middle lobe of lung Qualified Code(s): C34.2 - Malignant neoplasm of middle lobe, bronchus or lung Is this a current diagnosis for this admission?: YesPlan: Agree w/ hospice approach, pt not candidate for further chemo, probable inpt hospice. - Time Time Spent with patient: 25-34 minutes Critical Time spent with patient: 25-34 minutes
--- NOTE | 2017-05-21 10:06 | PDOC PROGRESS REPORT ---
Subjective Progress Note for:: 05/21/17 Subjective:: Patient denies any new complaints. Currently still requiring BiPAP intermittently. Chest x-ray showed reaccumulation of pleural fluid. No reported nausea or vomiting. No diarrhea. No chills or fever. Physical Exam Vital Signs: Temp Pulse Resp BP Pulse Ox 97.4 F 83 21 H 100/80 99 05/21/17 07:57 05/21/17 08:08 05/21/17 08:08 05/21/17 07:57 05/21/17 08:08 Intake & Output 05/20/17 05/21/17 05/22/17 06:59 06:59 06:59 Intake Total 510 900 Balance 510 900 Weight 67.2 kg 66.9 kg General appearance: PRESENT: no acute distress, cooperative, other - Somnolent Head exam: PRESENT: normocephalic Eye exam: PRESENT: EOMI Mouth exam: PRESENT: moist, neck supple Neck exam: ABSENT: JVD Respiratory exam: PRESENT: decreased breath sounds - Lower lung kraus., rhonchi - few bilateral.. ABSENT: wheezes Cardiovascular exam: PRESENT: RRR. ABSENT: gallop GI/Abdominal exam: PRESENT: hypoactive bowel sounds, soft. ABSENT: distended Extremities exam: PRESENT: other - Trace lower extremity edema Neurological exam: PRESENT: alert, awake, other - Response to questions appropriately Skin exam: PRESENT: dry, warm. ABSENT: cyanosis Results Laboratory Results: 05/18/17 05:56 05/20/17 09:45 05/20/17 09:45 Potassium 4.0 05/17/17 11:25 Pleural Fluid Gram Stain - Final 05/17/17 11:25 Pleural Fluid Body Fluid Culture - Final NO AEROBIC OR ANAEROBIC ORGANISMS RECOVERED 05/13/17 15:38 Troponin I < 0.012 Impressions: Thoracentesis Ultrasound 05/17/17 00:00 IMPRESSION: SUCCESSFUL THORACENTESIS USING ULTRASOUND GUIDANCE. Chest X-Ray 05/20/17 09:08 IMPRESSION: COPD WITH CHRONIC PLEURAL AND PARENCHYMAL SCARRING. SLIGHT INCREASE IN THE RIGHT PLEURAL EFFUSION. LEFT PLEURAL EFFUSION UNCHANGED. Assessment & Plan - Diagnosis (1) Acute and chronic respiratory failure with hypoxia Is this a current diagnosis for this admission?: Yes (2) Malignant pleural effusion Is this a current diagnosis for this admission?: Yes (3) COPD exacerbation Is this a current diagnosis for this admission?: Yes (4) Lung cancer Qualifiers: Laterality: right Lung location: middle lobe of lung Qualified Code(s): C34.2 - Malignant neoplasm of middle lobe, bronchus or lung Is this a current diagnosis for this admission?: Yes (5) Hyperlipidemia Qualifiers: Hyperlipidemia type: unspecified Qualified Code(s): E78.5 - Hyperlipidemia, unspecified Is this a current diagnosis for this admission?: Yes (6) Osteoporosis Qualifiers: Osteoporosis type: unspecified Presence of current pathological fracture: unspecified Qualified Code(s): M81.0 - Age-related osteoporosis without current pathological fracture Is this a current diagnosis for this admission?: Yes (7) History of CHF (congestive heart failure) Is this a current diagnosis for this admission?: Yes (8) Anemia of chronic disease Is this a current diagnosis for this admission?: Yes (9) GERD (gastroesophageal reflux disease) Qualifiers: Esophagitis presence: without esophagitis Qualified Code(s): K21.9 - Gastro-esophageal reflux disease without esophagitis Is this a current diagnosis for this admission?: Yes (10) HTN (hypertension) Qualifiers: Hypertension type: essential hypertension Qualified Code(s): I10 - Essential (primary) hypertension Is this a current diagnosis for this admission?: Yes (11) History of pulmonary embolism Is this a current diagnosis for this admission?: Yes (12) Mild dementia Is this a current diagnosis for this admission?: Yes - Time Time Spent with patient: 25-34 minutes - Plan Summary Plan Summary: Case discussed in length with Dr. Ramirez. Reportedly patient's life expectancy is short on her current situation and condition. Consult inpatient hospice. Awaiting family decision regarding comfort measures and hospice care. Continue other medications at this time. Transition to oral steroids and discontinue antibiotic. Culture has been negative. Patient's effusion is malignant.
[2017-05-21] MEDS: METOPROLOL TARTRATE 25 MG TABLET PO SCH ×2 (11:04→23:12)
[2017-05-21] MEDS: SUCRALFATE 1 GM TABLET PO SCH ×4 (11:21→23:13)
[2017-05-21] MEDS: FAMOTIDINE 20 MG TABLET PO SCH ×2 (11:21→23:13)
[2017-05-21] MEDS: FLUTICASONE/SALMETEROL DISKUS 250-50 MCG/DOSE IH SCH ×2 (11:21→23:13)
[2017-05-21] MEDS: FERROUS SULFATE 325 MG TABLET PO SCH ×2 (11:21→17:18)
[2017-05-21] MEDS: GUAIFENESIN 600 MG TABLET.SA PO SCH ×2 (11:21→23:13)
[2017-05-21] MEDS ORDERED: ONDANSETRON 4 MG TAB.RAPDIS PO PRN (15:35)
[2017-05-21] MEDS: TIOTROPIUM BROMIDE DPI 5 CAP/KIT (18 MCG/CAP) IH SCH (17:19)
[2017-05-21] MEDS: NICOTINE 14 MG/24 HR PATCH.TD24 TD SCH (17:19)
[2017-05-21] MEDS: MIRTAZAPINE 15 MG TABLET PO SCH (23:12)
[2017-05-22] MEDS: LANSOPRAZOLE 30 MG TAB.RAP.DR PO SCH (06:42)
[2017-05-22] MEDS: CLONAZEPAM 1 MG TABLET PO SCH (06:42)
--- NOTE | 2017-05-22 08:21 | PDOC PROGRESS REPORT ---
Subjective Progress Note for:: 05/22/17 Subjective:: Today had a long conversation with the son, initially we were going towards a inpatient hospice approach, but over the last 12 hours the patient has been much more lucid, and has voiced a desire to reconsider hospice approach. I spoke to the son at length today, he spoken to his mother again, I think he can speak with her further and most likely she will get to a point where she can accept hospice. Physical Exam Vital Signs: Temp Pulse Resp BP Pulse Ox 98.0 F 105 H 30 H 125/97 H 100 05/22/17 00:06 05/22/17 00:06 05/22/17 04:13 05/22/17 00:06 05/22/17 04:14 Intake & Output 05/21/17 05/22/17 05/23/17 06:59 06:59 06:59 Intake Total 900 750 Balance 900 750 Weight 66.9 kg 68.3 kg General appearance: PRESENT: no acute distress, well-developed, well-nourished Head exam: PRESENT: atraumatic, normocephalic Eye exam: PRESENT: conjunctiva pink, EOMI, PERRLA. ABSENT: scleral icterus Ear exam: PRESENT: normal external ear exam Mouth exam: PRESENT: moist, tongue midline Neck exam: ABSENT: carotid bruit, JVD, lymphadenopathy, thyromegaly Respiratory exam: PRESENT: clear to auscultation brittni. ABSENT: rales, rhonchi, wheezes Cardiovascular exam: PRESENT: RRR. ABSENT: diastolic murmur, rubs, systolic murmur Pulses: PRESENT: normal dorsalis pedis pul Vascular exam: PRESENT: normal capillary refill GI/Abdominal exam: PRESENT: normal bowel sounds, soft. ABSENT: distended, guarding, mass, organolmegaly, rebound, tenderness Rectal exam: PRESENT: deferred Extremities exam: PRESENT: full ROM. ABSENT: calf tenderness, clubbing, pedal edema Neurological exam: PRESENT: alert, awake, oriented to person, oriented to place , oriented to time, oriented to situation, CN II-XII grossly intact. ABSENT: motor sensory deficit Psychiatric exam: PRESENT: appropriate affect, normal mood. ABSENT: homicidal ideation, suicidal ideation Skin exam: PRESENT: dry, intact, warm. ABSENT: cyanosis, rash Results Laboratory Results: 05/18/17 05:56 05/20/17 09:45 05/17/17 11:25 Pleural Fluid Gram Stain - Final 05/17/17 11:25 Pleural Fluid Body Fluid Culture - Final NO AEROBIC OR ANAEROBIC ORGANISMS RECOVERED 05/13/17 15:38 Troponin I < 0.012 Impressions: Thoracentesis Ultrasound 05/17/17 00:00 IMPRESSION: SUCCESSFUL THORACENTESIS USING ULTRASOUND GUIDANCE. Chest X-Ray 05/20/17 09:08 IMPRESSION: COPD WITH CHRONIC PLEURAL AND PARENCHYMAL SCARRING. SLIGHT INCREASE IN THE RIGHT PLEURAL EFFUSION. LEFT PLEURAL EFFUSION UNCHANGED. Assessment & Plan - Diagnosis (1) Lung cancer Qualifiers: Laterality: right Lung location: middle lobe of lung Qualified Code(s): C34.2 - Malignant neoplasm of middle lobe, bronchus or lung Is this a current diagnosis for this admission?: YesPlan: As noted previously no longer a candidate for any further treatment, I believe she would benefit best from a hospice approach, I believe the son can talk with the patient more and most likely will come to a decision towards hospice. They will contact discharge planning about this today. Today spent greater than 50 minutes in discussion. - Time Time Spent with patient: 35 or more minutes Critical Time spent with patient: 35 or more minutes Anticipated discharge: Hospice
[2017-05-22] MEDS ORDERED: PREDNISONE 20 MG TABLET PO SCH (10:00)
[2017-05-22] MEDS: FLUTICASONE/SALMETEROL DISKUS 250-50 MCG/DOSE IH SCH (11:28)
[2017-05-22] MEDS: SUCRALFATE 1 GM TABLET PO SCH (11:29)
[2017-05-22] MEDS: GUAIFENESIN 600 MG TABLET.SA PO SCH (11:29)
[2017-05-22] MEDS: FAMOTIDINE 20 MG TABLET PO SCH (11:29)
[2017-05-22] MEDS: FERROUS SULFATE 325 MG TABLET PO SCH (11:30)
[2017-05-22] MEDS: METOPROLOL TARTRATE 25 MG TABLET PO SCH (11:30)
[2017-05-22] MEDS: MORPHINE SULFATE 10 MG/ML INJ IV PRN ×2 (12:18→16:35)
--- NOTE | 2017-05-22 12:29 | PDOC PROGRESS REPORT ---
Subjective Progress Note for:: 05/22/17 Subjective:: Denies any complaints today Physical Exam Vital Signs: Temp Pulse Resp BP Pulse Ox 98.0 F 105 H 30 H 120/78 100 05/22/17 00:06 05/22/17 00:06 05/22/17 04:13 05/22/17 08:40 05/22/17 04:14 Intake & Output 05/21/17 05/22/17 05/23/17 06:59 06:59 06:59 Intake Total 900 750 Balance 900 750 Weight 66.9 kg 68.3 kg General appearance: PRESENT: no acute distress Eye exam: PRESENT: conjunctiva pink. ABSENT: scleral icterus Ear exam: PRESENT: normal external ear exam Mouth exam: PRESENT: moist, tongue midline Neck exam: ABSENT: JVD Respiratory exam: PRESENT: decreased breath sounds - Decreased breath sounds in the bases. ABSENT: rales, rhonchi, wheezes Cardiovascular exam: PRESENT: RRR. ABSENT: diastolic murmur, rubs, systolic murmur GI/Abdominal exam: PRESENT: normal bowel sounds, soft. ABSENT: distended, guarding, mass, organolmegaly, rebound, tenderness Extremities exam: ABSENT: calf tenderness, clubbing, pedal edema Neurological exam: PRESENT: alert, awake, oriented to person, oriented to place , oriented to time, oriented to situation, CN II-XII grossly intact. ABSENT: motor sensory deficit Psychiatric exam: PRESENT: appropriate affect, normal mood. ABSENT: homicidal ideation, suicidal ideation Skin exam: PRESENT: dry, intact, warm. ABSENT: cyanosis, rash Results Laboratory Results: 05/18/17 05:56 05/20/17 09:45 05/13/17 15:38 Troponin I < 0.012 Impressions: Thoracentesis Ultrasound 05/17/17 00:00 IMPRESSION: SUCCESSFUL THORACENTESIS USING ULTRASOUND GUIDANCE. Chest X-Ray 05/20/17 09:08 IMPRESSION: COPD WITH CHRONIC PLEURAL AND PARENCHYMAL SCARRING. SLIGHT INCREASE IN THE RIGHT PLEURAL EFFUSION. LEFT PLEURAL EFFUSION UNCHANGED. Assessment & Plan - Diagnosis (1) COPD exacerbation Is this a current diagnosis for this admission?: YesPlan: Is considering going to hospice. (2) Lung cancer Qualifiers: Laterality: right Lung location: middle lobe of lung Qualified Code(s): C34.2 - Malignant neoplasm of middle lobe, bronchus or lung Is this a current diagnosis for this admission?: YesPlan: History of left partial pneumonectomy. Pleural fluid is positive for malignant cells. Oncology has been following the patient. They agree with hospice care (3) Acute and chronic respiratory failure with hypoxia Is this a current diagnosis for this admission?: Yes (4) Anemia of chronic disease Is this a current diagnosis for this admission?: Yes (5) GERD (gastroesophageal reflux disease) Qualifiers: Esophagitis presence: without esophagitis Qualified Code(s): K21.9 - Gastro-esophageal reflux disease without esophagitis Is this a current diagnosis for this admission?: Yes (6) HTN (hypertension) Qualifiers: Hypertension type: essential hypertension Qualified Code(s): I10 - Essential (primary) hypertension Is this a current diagnosis for this admission?: Yes (7) History of pulmonary embolism Is this a current diagnosis for this admission?: Yes (8) DNR (do not resuscitate) Is this a current diagnosis for this admission?: YesPlan: Patient and her son are in agreement with DNR. They are considering hospice - Time Time Spent with patient: 25-34 minutes - Inpatient Certification Medical Necessity: Need Close Monitoring Due to Risk of Patient Decompensation
--- NOTE | 2017-05-22 14:40 | PDOC TRANSFER SUMMARY ---
General - Admit/Disc Date/PCP Admission Date/Primary Care Provider: 05/13/17 13:40 UMU GATICA MD Discharge Date: 05/22/17 - Discharge Diagnosis (1) COPD exacerbation Is this a current diagnosis for this admission?: Yes (2) Lung cancer Is this a current diagnosis for this admission?: YesSummary: Patient had pleural fluid with positive malignancy consistent with recurrence of her lung cancer. (3) Acute and chronic respiratory failure with hypoxia Is this a current diagnosis for this admission?: YesSummary: Secondary to COPD and lung cancer (4) Anemia of chronic disease Is this a current diagnosis for this admission?: Yes (5) GERD (gastroesophageal reflux disease) Is this a current diagnosis for this admission?: Yes (6) HTN (hypertension) Is this a current diagnosis for this admission?: Yes (7) History of pulmonary embolism Is this a current diagnosis for this admission?: Yes (8) DNR (do not resuscitate) Is this a current diagnosis for this admission?: Yes - Additional Information Resuscitation Status: Do Not Resuscitate Discharge Diet: As Tolerated Discharge Activity: Activity As Tolerated Home Medications: Acetaminophen [Tylenol 325 mg Tablet] 650 mg PO Q4HP PRN tablet 05/22/17 Albuterol Sulfate [Ventolin 0.083% Neb 2.5 mg/3 mL Ampul] 2.5 mg NEB RTQ4HP PRN vial.neb 05/22/17 Clonazepam [Klonopin 1 mg Tablet] 0.25 mg PO Q12A #60 tablet 05/22/17 Morphine Sulfate [Roxanol] 20 mg PO Q2HP PRN #120 ml 05/22/17 Nicotine [Nicoderm 14 mg/24 Hr Transdermal Patch] 1 each TD QPM patch.td24 Ondansetron [Zofran Odt 4 mg Tablet] 4 mg PO Q6HP PRN tab.rapdis 05/22/17 Prednisone [Deltasone 20 mg Tablet] 40 mg PO DAILY tablet 05/22/17 History of Present Illness Admission Date/PCP: 05/13/17 13:40 UMU GATICA MD History of Present Illness: 77-year-old female with remote history of non-small cell lung cancer, status post lung resection in [place], that was the left lung, recently she went to her PCP over the last 2 months with increasing shortness of breath, ultimately abnormalities noted on CT chest, she was then seen by Dr. Liu of oncology in [place], who did PET/CT, this indicated right middle lobe mass with pleural effusion, multiple mediastinal nodes, as well as a right proximal humerus uptake , presented with a one-week history of cough, worsening shortness of breath with a cough productive of white sputum. Patient is noted to have a pleural effusion. She is admitted for an acute COPD exacerbation as well as workup of recurrent probable lung cancer Hospital Course Hospital Course: 77-year-old female admitted with an acute COPD exacerbation. She was treated with IV steroids and nebulizers. Patient was noted to have a pleural effusion and underwent a thoracentesis. This was positive for recurrence of her primary lung cancer. Because of this the patient and family decided that she would do inpatient hospice. Patient was evaluated by oncology while here and they agreed with hospice. Patient is to be transferred to [facility] today Physical Exam Vital Signs: Temp Pulse Resp BP Pulse Ox 97.8 F 162 H 19 120/83 67 L 05/22/17 12:26 05/22/17 12:26 05/22/17 12:26 05/22/17 12:26 05/22/17 12:26 Intake & Output 05/21/17 05/22/17 05/23/17 06:59 06:59 06:59 Intake Total 900 750 Balance 900 750 Weight 66.9 kg 68.3 kg General appearance: PRESENT: mild distress Eye exam: PRESENT: conjunctiva pink. ABSENT: scleral icterus Mouth exam: PRESENT: moist, tongue midline Neck exam: ABSENT: JVD Respiratory exam: PRESENT: decreased breath sounds - Decreased breath sounds in the bases. ABSENT: rales, rhonchi, wheezes Cardiovascular exam: PRESENT: tachycardia. ABSENT: diastolic murmur, rubs, systolic murmur GI/Abdominal exam: PRESENT: normal bowel sounds, soft. ABSENT: distended, guarding, mass, organolmegaly, rebound, tenderness Extremities exam: ABSENT: calf tenderness, clubbing, pedal edema Neurological exam: PRESENT: alert, awake, oriented to person, oriented to place , oriented to time, oriented to situation, CN II-XII grossly intact. ABSENT: motor sensory deficit Psychiatric exam: PRESENT: appropriate affect Skin exam: PRESENT: dry, intact, warm. ABSENT: cyanosis, rash Results Laboratory Results: 05/18/17 05:56 05/20/17 09:45 05/13/17 15:38 Troponin I < 0.012 Impressions: Thoracentesis Ultrasound 05/17/17 00:00 IMPRESSION: SUCCESSFUL THORACENTESIS USING ULTRASOUND GUIDANCE. Chest X-Ray 05/20/17 09:08 IMPRESSION: COPD WITH CHRONIC PLEURAL AND PARENCHYMAL SCARRING. SLIGHT INCREASE IN THE RIGHT PLEURAL EFFUSION. LEFT PLEURAL EFFUSION UNCHANGED. Transfer Plan - Disposition Transfer Plan: Transfer the patient to inpatient hospice at [facility] - Time Spent with Patient Time spent with patient: Greater than 30 Minutes Qualifiers PATEINT BEING DISCHARGED WITH ANY OF THE FOLLOWING DIAGNOSIS?: No Plan Discharge Plan: Transfer to the [facility] Time Spent: Greater than 30 Minutes
[2017-05-22 16:05] VITALS: BP 125/89
== END 2017-05-22 17:35 | disposition hospice, inpatient (51) | DRG 190 ==
LOC: ER 11:05 → EH 13:28 → UNDOADMIN 13:28 → EH 13:40 → 5 14:48
PROVIDERS: ADMIT Internal Medicine; ATTEND Internal Medicine
PROC: 3E0F73Z Introduction of Anti-inflammatory into Respiratory Tract, Via Natural or Artificial Opening (ICD-10-PCS; 2017-05-13)
PROC: 5A09557 Assistance with Respiratory Ventilation, Greater than 96 Consecutive Hours, Continuous Positive Airway Pressure (ICD-10-PCS; principal; 2017-05-14)
PROC: 0W993ZX Drainage of Right Pleural Cavity, Percutaneous Approach, Diagnostic (ICD-10-PCS; 2017-05-17)
DX: J44.1 Chronic obstructive pulmonary disease with (acute) exacerbation (principal); J96.21 Acute and chronic respiratory failure with hypoxia; C34.2 Malignant neoplasm of middle lobe, bronchus or lung; J91.0 Malignant pleural effusion; D63.8 Anemia in other chronic diseases classified elsewhere; I11.0 Hypertensive heart disease with heart failure; I50.9 Heart failure, unspecified; L40.9 Psoriasis, unspecified; K21.9 Gastro-esophageal reflux disease without esophagitis; K44.9 Diaphragmatic hernia without obstruction or gangrene; F32.9 Major depressive disorder, single episode, unspecified; E78.5 Hyperlipidemia, unspecified; M19.90 Unspecified osteoarthritis, unspecified site; M81.0 Age-related osteoporosis without current pathological fracture; F03.90 Unspecified dementia, unspecified severity, without behavioral disturbance, psychotic disturbance, mood disturbance, and anxiety; F17.210 Nicotine dependence, cigarettes, uncomplicated; Z99.81 Dependence on supplemental oxygen; Z86.711 Personal history of pulmonary embolism; Z66 Do not resuscitate; Z79.899 Other long term (current) drug therapy; Z90.2 Acquired absence of lung [part of]; Z86.14 Personal history of Methicillin resistant Staphylococcus aureus infection; Z90.49 Acquired absence of other specified parts of digestive tract; Z88.6 Allergy status to analgesic agent; Z88.2 Allergy status to sulfonamides; Z88.3 Allergy status to other anti-infective agents; Z83.6 Family history of other diseases of the respiratory system
CPT/HCPCS: 32555; 36415; 36600; 51701; 71010; 80048; 80053; 81001; 82550; 82553; 82803; 83605; 83615; 83735; 84132; 84157; 84484; 85025; 85027; 85610; 85730; 87040; 87070; 87075; 87086; 87205; 88305; 88341; 88342; 93005; 93010; 94640; 94660; 96374; 96375; 99285; G8978-GP; G8979-GP; J0696; J1650; J1940; J2270; J2920; J2930; J3490; J7030; J7512; J7620